=== PATIENT | male | born 1980 | race African-American/Black ===

== ENCOUNTER 2019-12-11 16:54 | Emergency (ER) | payer SELFPAY ==
[2019-12-11 17:14] VITALS: BP 206/149; PULSE 118; RESP 18; TEMP 36.4; O2SAT 98; BMI 32.8
--- NOTE | 2019-12-11 18:14 | PC.NURSE ---
Nurse attempted to call pt's name 3 different times to get pt back in a room. Pt was not seen in the waiting room.
== END 2019-12-11 18:15 | disposition left against medical advice (07) ==
PROVIDERS: Emergency Provider Emergency Medicine
DX: Z53.21 Procedure and treatment not carried out due to patient leaving prior to being seen by health care provider (principal)
CPT/HCPCS: 99281; 99282

== ENCOUNTER 2019-12-11 21:46 | Inpatient (IN) | payer SELFPAY ==
[2019-12-11 21:48] VITALS: BP 212/160; PULSE 114; RESP 24; TEMP 36.3; O2SAT 98; BMI 32.8
--- NOTE | 2019-12-11 22:07 | ED_ITS ---
Entered by Bianca Trejo, acting as scribe for Olivier Rosenberg DO Dec 11, 2019 21:46 HPI - Abdominal Pain General: Chief Complaint: Abdominal Pain Stated Complaint: hernia/pain Time Seen by Provider: 12/11/19 22:04 Source: patient Mode of arrival: ambulatory Limitations: no limitations History of Present Illness: HPI narrative: 39 yo m came to the er pov for abd pain and right scrotal pain. Pt states that he has had a fever and pain in the lower abd. Super pubic area is tender. MD elicited complaint: abdominal pain Pain Consistency: constant Associated Symptoms: Reports chills, fever(s) and nausea; Denies dysuria, hematochezia, hematuria, melena and vomiting Review of Systems Const: Reports: fever and chills Eyes: Denies: change in vision or blurry vision ENMT: Denies: painful swallowing or swelling of lips/tongue Card: Denies: chest pain, palpitations, irregular heart rhythm, edema, swelling of feet/ankles, shortness of breath on exertion or shortness of breath when lying down Resp: Denies: shortness of breath, productive cough, non-productive cough or wheezing GI: Reports: abdominal pain and nausea; Denies: vomiting, rectal pain, blood in stool or black tarry stool : Reports: difficulty urinating; Denies: painful urination, urinary frequency, urinary urgency or blood in urine Skin/Breast: Denies: rash, itching or redness Neuro: Reports: headache and confusion; Denies: dizziness or vertigo Psych: Denies: anxiety, visual hallucinations or auditory hallucinations PFSH ED PFSH: Statuses (acute, chronic, etc) shown below reflect problem list status as previously entered and may not be historically accurate Social History Smoking and tobacco status: current every day smoker Physical Exam Const: GENERAL APPEARANCE: well developed ORIENTATION/CONSCIOUSNESS: Yes oriented to person, Yes oriented to place and Yes oriented to time HENMT: COMMON NORMALS: normocephalic, external ears normal and external nose n ormal HEAD & SCALP: normocephalic; no scalp tenderness FACE & SINUS: normal facial exam NOSE: external nose normal and no nasal discharge EXTERNAL EAR: Yes external ears normal Eye: COMMON NORMALS: PERRL, EOMs intact bilaterally and conjunctivae normal EYELID: eyelids normal CONJUNCTIVA: Yes conjunctivae normal PUPIL: Yes PERRL Neck/C-Spine: COMMON NORMALS: full ROM GENERAL: No tracheal deviation CERVICAL SPINE: Yes normal cervical lordosis and No cervical spine tenderness Chest: COMMONS NORMALS: inspection of chest normal CHEST: No tenderness Resp: COMMON NORMALS: clear to auscultation bilaterally EFFORT & INSPECTION: No tachypneic, No respiratory distress, No retractions, No uses accessory muscles and No tracheal deviation AUSCULTATION: clear to auscultation bilaterally, no rhonchi, no wheezes and lung sounds not diminished Cardio: COMMON NORMALS: regular rate and regular rhythm RATE: regular rate RHYTHM: regular rhythm HEART SOUNDS: no murmurs PERIPHERAL PULSES: radia l pulses present GI: INSPECTION: No abdominal distension AUSCULTATION: No hyperactive bowel sounds and No hypoactive bowel sounds PALPATION: No guarding and No rigid PERCUSSION: no dullness to percussion and no tympanic to percussion : COMMON NORMALS: Yes no CVA tenderness BLADDER/KIDNEY EXAM: Yes no CVA tenderness PENIS: normal penis SCROTUM: Yes erythematous and Yes edematous (signficant, tender. ) Scrotal edema laterality: right Back/Pelvis: COMMON NORMALS: no CVA tenderness Neuro: SENSORIUM/ORIENTATION: Yes oriented to person, Yes oriented to place and Yes oriented to time Course ED course: 39-year-old male with 2 separate problems. The first is that of a swollen tender right testicle with a history of a fever. CT showed a hydrocele. Ultrasound of the testicle shows epididymitis. He will be treated for this. His second problem is that of significantly high blood pressure. His blood pressure was in the 260s systolic. This is despite hydralazine, Vasotec, and p.o. amlodipine. Because of this nitroglycerin paste was used. His blood pressure remained over 200 systolic. He is placed on a nitroglycerin drip. He has pulmonary edema on his CT is a finding of his significant afterload. He has an elevated troponin. He will be placed in the ICU on nitroglycerin drip, and is given Lasix here. Vital Signs: Vital signs: Vital Signs Temperature 97.3 F L 12/11/19 21:48 Pulse Rate 110 H 12/12/19 03:11 Respiratory Rate 16 12/12/19 03:11 Blood Pressure 184/121 12/12/19 03:11 Pulse Oximetry 97 12/12/19 03:11 MDM - Abdominal Pain Lab Data: Labs: Lab Results 12/11/19 12/11/19 12/12/19 Range/Units 22:55 22:55 01:56 WBC 8.2 (4.0-10.0) 10^3/ uL RBC 4.69 (4.1-5.3) 10^6/u L Hgb 13.0 (11.7-16.6) g/dL Hct 40.4 L (42.0-52.0) % MCV 86.1 (80-94) fL MCH 27.7 L (28.0-34.0) pg MCHC 32.2 (30.0-36.0) g/dL RDW 13.6 (12.1-15.1) % Plt Count 246 (130-400) 10^3/c mm MPV 9.5 (7.4-10.4) fL Neut % (Auto) 62.2 % Lymph % (Auto) 28.9 % Casey % (Auto) 4.9 % Eos % (Auto) 2.9 % Baso % (Auto) 0.9 % Neut # (Auto) 5.1 (1.8-7.7) 10^3/u L Lymph # (Auto) 2.4 (0.8-4.8) 10^3/u L Casey # (Auto) 0.4 (0.2-0.9) 10^3/u L Eos # (Auto) 0.2 (0.0-0.8) 10^3/u L Baso # (Auto) 0.1 (0.0-0.1) 10^3/u L Nucleated RBC % (a uto) 0 % Nucleated RBCs # 0.0 /100WBC Sodium 135 L (136-145) mmol/L Potassium 4.4 (3.5-5.1) mmol/L Chloride 100 (98-107) mmol/L Carbon Dioxide 25 (22-29) mmol/L Anion Gap 14.4 (5-19) BUN 23 H (6-20) mg/dL Creatinine 2.1 H (0.7-1.2) mg/dL GFR Calculation 42.8 L (90-130) mL/min Glucose 123 H (65-115) mg/dL Calcium 9.4 (8.5-10.5) mg/dL Total Bilirubin 0.4 (0.15-1.2) mg/dL AST 21 (0-40) U/L ALT 17 (0-41) U/L Alkaline Phosphata se 97 (40-130) IU/L Troponin T Baselin e 66 H (0-15) ng/mL NT-Pro-B Natriuret Pep (0-125) pg/mL Total Protein 6.7 (6.6-8.7) g/dL Albumin 3.5 (3.5-5.2) g/dL Globulin 3.2 (1.3-4.6) g/dL 12/12/19 Range/Units 01:56 WBC (4.0-10.0) 10^3/ uL RBC (4.1-5.3) 10^6/u L Hgb (11.7-16.6) g/dL Hct (42.0-52.0) % MCV (80-94) fL MCH (28.0-34.0) pg MCHC (30.0-36.0) g/dL RDW (12.1-15.1) % Plt Count (130-400) 10^3/c mm MPV (7.4-10.4) fL Neut % (Auto) % Lymph % (Auto) % Casey % (Auto) % Eos % (Auto) % Baso % (Auto) % Neut # (Auto) (1.8-7.7) 10^3/u L Lymph # (Auto) (0.8-4.8) 10^3/u L Casey # (Auto) (0.2-0.9) 10^3/u L Eos # (Auto) (0.0-0.8) 10^3/u L Baso # (Auto) (0.0-0.1) 10^3/u L Nucleated RBC % (a uto) % Nucleated RBCs # /100WBC Sodium (136-145) mmol/L Potassium (3.5-5.1) mmol/L Chloride (98-107) mmol/L Carbon Dioxide (22-29) mmol/L Anion Gap (5-19) BUN (6-20) mg/dL Creatinine (0.7-1.2) mg/dL GFR Calculation (90-130) mL/min Glucose (65-115) mg/dL Calcium (8.5-10.5) mg/dL Total Bilirubin (0.15-1.2) mg/dL AST (0-40) U/L ALT (0-41) U/L Alkaline Phosphata se (40-130) IU/L Troponin T Baselin e (0-15) ng/mL NT-Pro-B Natriuret Pep 2238 H (0-125) pg/mL Total Protein (6.6-8.7) g/dL Albumin (3.5-5.2) g/dL Globulin (1.3-4.6) g/dL Imaging Data ^: CT Abd/Pel: Radiologist's impression: [address] [address] [address] Scan Report Signed Patient: Bassem Woody #: [id number] : 1980Acct#:[id number] Age/Sex: 39 / MADM Date: 12/11/19 Loc: ERRoom/Bed: Attending Dr: Ordering Provider/Ordering MD: Olivier Rosenberg DO Date of Service: 12/11/19 Procedure(s): CT abdomen pelvis wo con [id number] Accession Number(s): [id number] Report Number: [id number] PROCEDURE INFORMATION: Exam: CT Abdomen And Pelvis Without Contrast Exam date and time: 12/11/2019 11:50 PM Age: 39 years old Clinical indication: Mass, lump, or swelling; Other: Testicules; Abdominal pain; Other: Rlq; Additional info: Rlq pain TECHNIQUE: Imaging protocol: Computed tomography of the abdomen and pelvis without contrast. Total DLP: 1876.45 mGy-cm Radiation optimization: All CT scans at this facility use at least one of these dose optimization techniques: automated exposure control; mA and/or kV adjustment per patient size (includes targeted exams where dose is matched to clinical indication); or iterative reconstruction. COMPARISON: CT Abdomen/Pelvis Renal [id number] 12/24/2016 6:43 PM FINDINGS: Lungs: There are some increased linear opacities present in the lower hemithoraces possibly secondary to mild pulmonary edema. Pleural space: There is a small right pleural effusion. Liver: Normal. No mass. Gallbladder and bile ducts: Normal. No calcified stones. No ductal dilation. Pancreas: Normal. No ductal dilation. Spleen: Normal. No splenomegaly. Adrenals: Normal. No mass. Kidneys and ureters: Normal. No hydronephrosis. Stomach and bowel: Unremarkable. No obstruction. No mucosal thickening. Appendix: The appendix is visualized and is normal in configuration. Intraperitoneal space: Unremarkable. No free air. No significant fluid collection. Vasculature: Unremarkable. No abdominal aortic aneurysm. Lymph nodes: Unremarkable. No enlarged lymph nodes. Bladder: Unremarkable as visualized. Reproductive: There is a right hydrocele present. Bones/joints: Unremarkable. No acute fracture. Soft tissues: Unremarkable. CT/CT abdomen pelvis wo con [id number] IMPRESSION: 1. There is a right pleural effusion he and bilateral basilar increased linear opacities, findings could be secondary to pulmonary edema. 2. There is a right hydrocele present. Radiation Dose CTDIVOL = (mGy): DLP = 1876.45 (mGy-cm) Dictated By:Jose Raul Dangelo MD Signed By:Jose Raul Dangelo MDSigned Date/Time:12/12/1919 DD/ 0019 Critical Care Time Critical Care Time: Total Critical Care Time: 40 Attestation: This case had a high probability of a clinically significant, sudden, or life threatening deterioration of this patient's condition which required my full and direct attention, intervention and personal management. Discharge Plan Discharge Admit Provider: Kade Shepherd Discharge Date/Time: 12/12/19 03:14 Coding Level of Care Code ED Business Office Technician for Chg Fwd The documentation recorded by the Neil moore Stephanie Lyn, accurately ref lects the service I personally performed and the decisions made by Chet dinero Jeremy John, DO Dec 11, 2019 21:46
--- NOTE | 2019-12-11 22:12 | PC.NURSE ---
PATIENT STATES HIS ABDOMEN STARTED HURTING A WEEK AGO, BUT IT GOT WORSE TODAY. PATIENT STATES THE PAIN IN LOCATED ON THE LOWER RIGHT QUADRANT.PATIENT STATES THE LRQ IS TENDER TO THE TOUCH.
[2019-12-11 22:19] VITALS: BP 244/174; PULSE 117; RESP 18; O2SAT 99
--- NOTE | 2019-12-11 22:39 | CTR_ITS ---
PROCEDURE INFORMATION: Exam: CT Abdomen And Pelvis Without Contrast Exam date and time: 12/11/2019 11:50 PM Age: 39 years old Clinical indication: Mass, lump, or swelling; Other: Testicules; Abdominal pain; Other: Rlq; Additional info: Rlq pain TECHNIQUE: Imaging protocol: Computed tomography of the abdomen and pelvis without contrast. Total DLP: 1876.45 mGy-cm Radiation optimization: All CT scans at this facility use at least one of these dose optimization techniques: automated exposure control; mA and/or kV adjustment per patient size (includes targeted exams where dose is matched to clinical indication); or iterative reconstruction. COMPARISON: CT Abdomen/Pelvis Renal [id number] 12/24/2016 6:43 PM FINDINGS: Lungs: There are some increased linear opacities present in the lower hemithoraces possibly secondary to mild pulmonary edema. Pleural space: There is a small right pleural effusion. Liver: Normal. No mass. Gallbladder and bile ducts: Normal. No calcified stones. No ductal dilation. Pancreas: Normal. No ductal dilation. Spleen: Normal. No splenomegaly. Adrenals: Normal. No mass. Kidneys and ureters: Normal. No hydronephrosis. Stomach and bowel: Unremarkable. No obstruction. No mucosal thickening. Appendix: The appendix is visualized and is normal in configuration. Intraperitoneal space: Unremarkable. No free air. No significant fluid collection. Vasculature: Unremarkable. No abdominal aortic aneurysm. Lymph nodes: Unremarkable. No enlarged lymph nodes. Bladder: Unremarkable as visualized. Reproductive: There is a right hydrocele present. Bones/joints: Unremarkable. No acute fracture. Soft tissues: Unremarkable. CT/CT abdomen pelvis wo con [id number] IMPRESSION: 1. There is a right pleural effusion he and bilateral basilar increased linear opacities, findings could be secondary to pulmonary edema. 2. There is a right hydrocele present. Radiation Dose CTDIVOL = (mGy): DLP = 1876.45 (mGy-cm)
[2019-12-11 22:57] VITALS: RESP 16; O2SAT 100
[2019-12-11] MEDS: HYDROmorphone 1 mg/mL INJ 1 mL IVP (22:57)
[2019-12-11] MEDS: hyDRALAzine 20 mg/mL INJ 1 mL IVP (22:58)
[2019-12-11 23:01] VITALS: BP 234/189; PULSE 114; RESP 17; O2SAT 100
[2019-12-11 23:04] LABS: Basophils # 0.1 10^3/uL (0.0-0.1); Basophils % 0.9 %; Eosinophils # 0.2 10^3/uL (0.0-0.8); Eosinophils % 2.9 %; Hematocrit 40.4 % (42.0-52.0); Lymphocytes # 2.4 10^3/uL (0.8-4.8); Lymphocytes % 28.9 %; Mean Corpuscular HGB Conc 32.2 g/dL (30.0-36.0); Mean Corpuscular Hemoglobin 27.7 pg (28.0-34.0); Mean Corpuscular Volume 86.1 fL (80-94); Mean Platelet Volume 9.5 fL (7.4-10.4); Monocytes # 0.4 10^3/uL (0.2-0.9); Monocytes % 4.9 %; Neutrophils # 5.1 10^3/uL (1.8-7.7); Neutrophils % 62.2 %; Nucleated Red Blood Cells % 0 %; Platelet Count 246 10^3/cmm (130-400); Red Blood Count 4.69 10^6/uL (4.1-5.3); Red Cell Distribution Width 13.6 % (12.1-15.1); White Blood Count 8.2 10^3/uL (4.0-10.0)
[2019-12-11] MEDS: amlodipine 10 mg Tablet PO (23:04)
[2019-12-11 23:20] LABS: Alanine Aminotransferase 17 U/L (0-41); Albumin Level 3.5 g/dL (3.5-5.2); Alkaline Phosphatase 97 IU/L (40-130); Anion Gap 14.4 (5-19); Aspartate Amino Transferase 21 U/L (0-40); Blood Urea Nitrogen 23 mg/dL (6-20); Calcium 9.4 mg/dL (8.5-10.5); Carbon Dioxide 25 mmol/L (22-29); Chloride 100 mmol/L (98-107); Globulin 3.2 g/dL (1.3-4.6); Glomerular Filtration Rate 42.8 mL/min (90-130); Glucose 123 mg/dL (65-115); Potassium 4.4 mmol/L (3.5-5.1); Sodium 135 mmol/L (136-145); Total Bilirubin 0.4 mg/dL (0.15-1.2); Total Protein 6.7 g/dL (6.6-8.7)
[2019-12-11] MEDS: enalaprilat 1.25 mg/mL Inj 2.5 MG IVP (23:59)
[2019-12-12] VITALS (58 sets, daily range): BP systolic 139–230; BP diastolic 101–190; PULSE 76–117; RESP 16–25; TEMP 36.6–36.7; O2SAT 88–100
[2019-12-12] MEDS: nitroglycerin 1 gm/inch oint Pkt 2 INCH TOPICAL
--- NOTE | 2019-12-12 01:17 | US_ITS ---
WS: [id number] [facility] ULTRASOUND HISTORY: 39 years old with pain swelling, left COMPARISON: CT pelvis 12/12/2019 TECHNIQUE: Grayscale and duplex color Doppler ultrasound examination of the scrotum. FINDINGS: Small right hydrocele is reidentified. Right epididymis appears enlarged and hyperemic. Left epididym is unremarkable. No left hydrocele. Both testicles size, contour, parenchyma echogenicity, duplex Doppler waveforms appear within normal limits. No varicocele or spermatocele. No intrascrotal hernia. Right testicle measures 3.2 x 3.1 x 5.0 cm and left testicle 2.7 x 3.5 x 4.0 cm. IMPRESSION: 1. Right epididymitis with small right hydrocele. 2. No evidence of orchitis, testicular torsion, or mass.
--- NOTE | 2019-12-12 01:37 | ECG_ITS ---
Measurements Intervals [place] Rate: 107 P: 65 NH: 143 QRS: 18 QRSD: 93 T: 208 QT: 348 QTc: 466 SINUS TACHYCARDIA POSSIBLE LEFT ATRIAL ENLARGEMENT [-0.1mV P WAVE IN V1/V2] ST DEVIATION AND MODERATE T-WAVE ABNORMALITY, CONSIDER LATERAL ISCHEMIA [-0.1+ mV T WAVE IN I/aVL/V5/V6] ST DEVIATION AND MODERATE T-WAVE ABNORMALITY, CONSIDER INFERIOR ISCHEMIA [-0.1 Compared to ECG 10/02/2019 08:23:47 T-wave abnormality now present Possible ischemia now present Left ventricular hypertrophy no longer present ST (T wave) deviation no longer present Electronically Signed On 12-13-2019 0:18:18 PRODUCT GRADER by Bell Wilder M.D. [email or web address]
--- NOTE | 2019-12-12 01:49 | PC.NURSE ---
ULTRASOUND IN ROOM
[2019-12-12 02:19] LABS: Troponin(5th) Baseline 66 ng/mL (0-15)
[2019-12-12] MEDS: levoFLOXacin 500 mg Tablet PO (02:19)
[2019-12-12] MEDS: FUROsemide 10 mg/mL SDV 10mL 80 MG IVP (02:20)
[2019-12-12] MEDS: nitroglycerin drip 50 MG/250 ML PREMIX IV (02:23)
[2019-12-12 02:28] LABS: NT Pro B Type Natriuretic Pept 2238 pg/mL (0-125)
[2019-12-12] MEDS: morphine 4 mg/mL SDV 1 mL IVP ×3 (03:04→17:02)
--- NOTE | 2019-12-12 03:19 | P.HP_ITS ---
Providers/Chief Complaint Admitting Physician: Kade Shepherd MD Chief Complaint: hernia/pain History of Present Illness Nicholas Woody is a 39 year old male with a past medical history of hypertension and any medications due to no insurance who presents to the emergency room due to complaints of right testicular pain. Patient states that he lives in [place], has a fianc?, works in a [employer], unfortunately does not have health insurance, has multiple ER visits for hypertension and shortness of breath, is sent home with about a month supply of antihypertensive medications, but patient does not have insurance, thus cannot see a physician, has not followed up with any of the free clinics here in [place], thus has been without his 2 blood pressure medications for some time. Of note patient does not know which these blood pressure medications are, thinks 1 of them is lisinopril. Patient states that for the past week he has had right testicular swelling and pain. Patient initially thought he might of had a hernia, try to ice it down, however the testicular pain persisted. In addition patient complains of dysuria, no hematuria, no increased urinary frequency, no urgency, no testicular discharge, no penile lesions, he sexually active with his fianc?e, has a history of gonorrhea chlamydia in the past, no history of UTIs, no history of nephrolithiasis, no history of testicular torsion. No recent falls, no recent injuries, no recent trauma. No history of hernias in the past. Patient admits to drinking moonshine this morning, to null his pain Patient has also been complaining of shortness of breath for the past few months, shortness of breath with exertion, has two-pillow orthopnea, paroxysmal nocturnal dyspnea, no chest chest pain, does have a headache, no blurry vision, no numbness and tingling in his fingers, no facial droop, no paralysis, no lightheaded, no dizziness In the emergency room patient had a work-up positive for epididymitis In the emergency room patient was found to have a blood pressure as high as 234/189, patient denies chest pain, palpitations, has shortness of breath, has headaches, dysuria. Patient was admitted to the intensive care unit for hypertensive emergency. Review of Systems Const: Denies: fever, chills, fatigue or malaise Eyes: Denies: change in vision or blurry vision ENMT: Denies: nasal congestion Card: Reports: shortness of breath on exertion and shortness of breath when lying down; Denies: chest pain, palpitations, irregular heart rhythm, lightheadedness or s yncope Resp: Reports: shortness of breath; Denies: productive cough, non-productive cough or wheezing GI: Denies: abdominal pain, nausea, vomiting, vomiting blood, diarrhea, constipation, blood in stool or black tarry stool : Denies: flank pain, difficulty urinating, painful urination or urinary frequency Musc: Denies: neck pain or back pain Skin/Breast: Denies: rash Neuro: Denies: headache, numbness in extremities, weakness in extremities, dizziness or vertigo Psych: Denies: anxiety or depression Endo: Denies: excessive urination or excessive thirst Medications/Allergies Home Medications Medication Instructions Recorded Confirmed Last Taken Type lisinopril 20 mg PO DAILY 12/12/19 12/12/19 12/08/19 History Allergies Allergy/AdvReac Type Severity Reaction Status Date / Time No Known Allergies Allergy Verified 12/12/19 03:33 Additional Medication Information Additional Medication Information: Patient thinks he is taking lisinopril Is unsure of the other medication he takes PFSH Acute PFSH: Statuses (acute, chronic, etc) shown below reflect problem list status as previously entered and may not be historically accurate Medical History (Updated 12/12/19 @ 03:36 by Kade Shepherd MD) CKD (chronic kidney disease) (Acute) Hypertension (Acute) Family History (Updated 12/12/19 @ 03:32 by Kade Shepherd MD) Other CAD (coronary artery disease) Diabetes Hypertension Social History (Updated 12/12/19 @ 03:33 by Kade Shepherd MD) Smoking and tobacco status: current every day smoker Alcohol intake: current Alcohol intake frequency: holidays/special occasions only Substance/Drug Use: current Substance/Drug use type: Marijuana Vitals/I&O/Wt Last Vital Signs Temp 97.3 F L 12/11/19 21:48 Pulse 110 H 12/12/19 03:11 Resp 16 12/12/19 03:11 BP 184/121 12/12/19 03:11 Pulse Ox 97 12/12/19 03:11 12/11/19 12/11/19 12/12/19 14:59 22:59 06:59 Intake Total 2.6 / 2.6 Balance 2.6 / 2.6 Weight last 48 hrs Weight 122.47 kg Physical Exam Const: COMMON NORMALS: no apparent distress and oriented x3 GENERAL APPEARANCE: cooperative and comfortable HENMT: COMMON NORMALS: normocephalic HEAD & SCALP: normocephalic Eye: COMMON NORMALS: PERRL, EOMs intact bilaterally and no papilledema GENERAL EYE: normal appearance of both eyes PUPIL: Yes PERRL DIRECT OPHTHALMOSCOPY: Yes no papilledema Neck/C-Spine: COMMON NORMALS: full ROM, no lymphadenopathy, no JVD and thyroid normal THYROID: thyroid normal Lymph: LYMPHATIC: no lymphadenopathy noted Resp: COMMON NORMALS: normal respiratory effort, no retractions, no use of accessory muscles and clear to auscultation bilaterally AUSCULTATION: clear to auscultation bilaterally Cardio: COMMON NORMALS: no JVD, regular rate, regular rhythm, S1 normal heart sound, S2 normal heart sound, no gallops, no clicks and no murmurs RATE: regular rate RHYTHM: regular rhythm HEART SOUNDS: S1 normal and S2 normal GI: COMMON NORMALS: normal to inspection, nondistended, normoactive bowel sounds, soft to palpation, non-tender and no hepatosplenomegaly PALPATION: Yes soft and Yes no hepatosplenomegaly : OTHER: Right testicular swelling, hydrocele, right testicular and epididymal tenderness Extremity: COMMON NORMALS: normal to inspection, full ROM and no pedal edema Neuro: COMMON NORMALS: oriented x3, CN's II-XII intact bilaterally, moves all extremities and no focal motor deficits Psych: COMMON NORMALS: mental status grossly normal, thought process normal and cooperative THOUGHT PROCESS: normal thought process Data : 12/11/19 22:55 12/11/19 22:55 A&P Assessment and plan (1) Hypertensive emergency: -Patient likely lives in high hypertensive urgency, is not taking his lisinopril, has not seen a physician due to insurance issues -Has evidence of endorgan damage given pulmonary edema, elevated BNP, LVH, CKD Plan: -We will admit to the ICU, on a nitro drip -Goal is to reduce blood pressure less than 180/120 for the first hour -Then less than 160/110 for the next 23 hours, avoid aggressive blood pressure reduction -We will leave adding oral medications to the morning team when deemed prudent -We will do CT of the head to rule out intracranial hemorrhage Status: Acute Code(s): I16.1 - Hypertensive emergency (2) Epididymitis: -Patient has evidence of epididymoorchitis -Ultrasound of the scrotum was negative for testicular torsion -So far urinalysis is pending -Gonorrhea chlamydia panel has been ordered -Given history of gonorrhea in the recent past, will give 1 dose of ceftriaxone plus doxycycline for the next 10 days to cover for gonorrhea and chlamydia. To cover for enteric pathogens will continue Levaquin 500 oral for 10 days Status: Acute Code(s): N45.1 - Epididymitis (3) Hydrocele: Right hydrocele seen on ultrasound Status: Acute Code(s): N43.3 - Hydrocele, unspecified (4) LVH (left ventricular hypertrophy): Seen on EKG Status: Acute Code(s): I51.7 - Cardiomegaly (5) Hypertension: We will discuss with case management about setting up a primary care physician as outpatient Secondary work-up for hypertension is pending, which includes aldosterone, renal sonogram with blood flow, echocardiogram I cannot find renin levels order will have morning team contact the lab Urine drug screen pending Status: Acute Code(s): I10 - Essential (primary) hypertension (6) Shortness of breath: -Patient BNP is 2238, CT shows pulmonary edema, patient symptomatically short of breath -Symptoms are likely related to chronically elevated high blood pressure as outpatient, and once blood pressures are running well controlled patient's symptoms should resolve -We will do a cardiac echocardiogram -Received 1 dose of Lasix, daily dose Lasix based on response Status: Acute Code(s): R06.02 - Shortness of breath (7) History of methamphetamine use: Denies current use Status: Acute Code(s): Z87.898 - Personal history of other specified conditions (8) CKD (chronic kidney disease): -Creatinine is 2.1 -Has evidence of endorgan damage related to hypertension -We will do a renal ultrasound with blood flow to evaluate for renal artery stenosis Status: Acute Code(s): N18.9 - Chronic kidney disease, unspecified (9) NSTEMI (non-ST elevated myocardial infarction): -Patient's EKG shows LVH, T wave inversions 1, lead II, aVF, V4 to V6 -Patient's baseline troponin is 66 -Denies chest pain -Elevated troponin likely type II NSTEMI Plan: -Blood pressure control, telemetry monitoring -Monitor for chest pain -Serial EKGs, troponins Status: Acute Code(s): I21.4 - Non-ST elevation (NSTEMI) myocardial infarction Attestations Medical Necessity Statement*: Patient requires inpatient mission, greater than 2 midnights, for hypertensive emergency, epididymoorchitis Coding Level of Care Code 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
--- NOTE | 2019-12-12 03:26 | USCV_ITS ---
Nicholas Woody Age: 39 Gender: M : 1980 Exam Date: 12/12/2019 09:25 Ordering Phys: Kade Shepherd MD Technologist: Jose Dubose [place]am [place] [facility] [place]ication: SOB HX OF DRUG ABUSE BP: 167 / 117 HR: 96 Rhythm: Sinus Technical Quality: Fair MEASUREMENTS (Male / Female) Normal Values 2D ECHO LVOT Diameter 2.0 cm LV Ejection Fraction MOD 2C 41.6 % LV Ejection Fraction 2C AL 39.6 % LA Diameter 3.5 cm LA Width 5.0 cm LA Height 4.6 cm RA Width 4.4 cm RA Height 4.9 cm Aorta at Sinotubular Diameter 3.6 cm M-MODE LV Diastolic Diameter MM 6.0 cm 4.2 - 5.9 / 3.9 - 5.3 cm LV Systolic Diameter MM 4.4 cm LV Ejection Fraction MM Teich 50.6 % IVS Diastolic Thickness MM 0.9 cm 0.6 - 1.0 / 0.6 - 0.9 cm IVS Systolic Thickness MM 1.6 cm LVPW Diastolic Thickness MM 1.4 cm 0.6 - 1.0 / 0.6 - 0.9 cm LVPW Systolic Thickness MM 1.9 cm RV Diastolic Diameter MM 2.3 cm Aortic Annulus Diameter 3.8 cm LA Ao Ratio MM 0.9 MV E Point Septal Separation 1.7 cm DOPPLER AV Peak Velocity 134.0 cm/s LVOT Peak Velocity 72.0 cm/s AV Area Cont Eq vti 1.4 cm squared AV Area Cont Eq pk 1.7 cm squared MV Area PHT 5.0 cm squared Mitral E to A Ratio 1.2 MV E' Velocity 7.0 cm/s Mitral E to MV E' Ratio 9.6 Mitral E to LV E' Lateral Ratio 7.9 Mitral E to LV E' Septal Ratio 12.3 TR Peak Velocity 166.0 cm/s TR Peak Gradient 11.0 mmHg TV Peak E Velocity 103.0 cm/s Right Atrial Pressure 3.0 mmHg Pulmonary Artery Systolic Pressu 14.0 mmHg PV Peak Velocity 104.0 cm/s FINDINGS Left Ventricle Normal left ventricular cavity size. Mildly reduced left ventricular systolic function with global wall motion abnormalities. Left ventricular ejection fraction is estimated at 50 %. Normal diastolic function. Right Ventricle The right ventricle is normal in size and function. Right Atrium The right atrium is normal in size. Left Atrium The left atrium is normal in size. Mitral Valve Mildly thickened mitral valve. No mitral valve stenosis. Trace mitral valve regurgitation. Aortic Valve Structurally normal aortic valve without significant sclerosis or stenosis. There is no aortic regurgitation. Tricuspid Valve Structurally normal tricuspid valve without significant stenosis or regurgitation. Pulmonary artery systolic pressure is normal. Pulmonic Valve Structurally normal pulmonic valve without significant stenosis. There is no pulmonic regurgitation. Pericardium Normal pericardium without effusion. Aorta Normal ascending aorta dimension. CONCLUSIONS 1-Normal left ventricular cavity size. Mildly reduced left ventricular systolic function with global wall motion abnormalities. Left ventricular ejection fraction is estimated at 50 %. Normal diastolic function. 2-Mildly thickened mitral valve. No mitral valve stenosis. Trace mitral valve regurgitation. 3-No significant valve abnormalities. 4-There is no pericardial effusion. 5-Pulmonary artery systolic pressure is within normal limits. 6-Right atrial pressure is around 5 mm of mercury. 7-There are no prior echocardiogram studies to compare. Bell Wilder MD (Electronically Signed) Final Date: 13 December 2019 00:04 S
--- NOTE | 2019-12-12 03:26 | US_ITS ---
WS: [id number] RENAL ULTRASOUND HISTORY: 39 years old Male with ckd COMPARISON: None available. TECHNIQUE: Grayscale and Doppler ultrasound examination of the kidneys. FINDINGS: Right kidney: Right kidney measures 11.3 cm x 5.8 cm x 4.6 cm. Echogenic renal parenchyma. No appreci able renal atrophy. No solid or cystic mass. No shadowing calculus or hydronephrosis. No perinephric fluid collection. Left kidney: Left kidney measures 10.0 cm x 5.0 cm x 6.0 cm. Echogenic renal parenchyma. No appreciab le renal atrophy. No solid or cystic mass. No shadowing calculus or hydronephrosis. No perinephric fl uid collection. US/US renal BI* [id number] IMPRESSION: Bilateral echogenic renal parenchyma suggestive of chronic medical renal diseas e. No evidence of hydronephrosis or mass.
--- NOTE | 2019-12-12 03:27 | CTR_ITS ---
PROCEDURE INFORMATION: Exam: CT Head Without Contrast Exam date and time: 12/12/2019 3:21 PM Age: 39 years old Clinical indication: Other: Headache high blood pressure; Additional info: HTN emergency R/O ich TECHNIQUE: Imaging protocol: Computed tomography of the head without contrast. Total DLP: 882.27 mGy-cm Radiation optimization: All CT scans at this facility use at least one of these dose optimization techniques: automated exposure control; mA and/or kV adjustment per patient size (includes targeted exams where dose is matched to clinical indication); or iterative reconstruction. COMPARISON: No relevant prior studies available. FINDINGS: Brain: Normal. No hemorrhage. Unremarkable white matter. No mass effect. Ventricles: Normal. No ventriculomegaly. Bones/joints: Unremarkable. No acute fracture. Sinuses: There is mucosal thickening in the maxillary and sphenoid sinuses. Mastoid air cells: Visualized mastoid air cells are well aerated. Soft tissues: Unremarkable. CT/CT head wo con* [id number] IMPRESSION: No acute intracranial findings. Radiation Dose CTDIVOL = (mGy): DLP = 882.27 (mGy-cm)
[2019-12-12 04:24] LABS: Alanine Aminotransferase 22 U/L (0-41); Alkaline Phosphatase 109 IU/L (40-130); Anion Gap 16.5 (5-19); Aspartate Amino Transferase 26 U/L (0-40); Blood Urea Nitrogen 24 mg/dL (6-20); Calcium 9.6 mg/dL (8.5-10.5); Carbon Dioxide 26 mmol/L (22-29); Chloride 99 mmol/L (98-107); Globulin 3.6 g/dL (1.3-4.6); Glomerular Filtration Rate 36.6 mL/min (90-130); Glucose 165 mg/dL (65-115); Magnesium 2.3 mg/dL (1.7-2.3); Phosphorus 3.5 mg/dL (2.5-4.5); Potassium 3.5 mmol/L (3.5-5.1); Sodium 138 mmol/L (136-145); Total Bilirubin 0.5 mg/dL (0.15-1.2); Total Protein 7.6 g/dL (6.6-8.7)
[2019-12-12 04:30] LABS: Estmated Average Glucose 128; Hemoglobin A1C 6.1 % (4.0-6.0)
[2019-12-12 04:37] LABS: Chol HDL Ratio 4.05 mg/dL (1.0-5.00); Cholesterol 150 mg/dL (0-200); HDL Cholesterol 37 mg/dL (60-100); LDL Cholesterol Calculated 84 mg/dL (50-129); LDL HDL Ratio 2.27 RATIO (0.00-3.22); Thyroid Stimulating Hormone 5.11 uIU/mL (0.27-4.20); Triglycerides 146 mg/dL (0-150)
[2019-12-12 04:38] LABS: Alcohol Level < 10 mg/dL (0-10)
[2019-12-12 04:45] LABS: Add Urine Microscopic? NO
[2019-12-12 04:51] LABS: Bilirubin Urine Neg (NEGATIVE); Blood Urine Neg (Negative); Glucose Urine UA Norm (Normal); Ketones Urine Negative (Negative); Leukocyte Esterase Urine Negative (Negative); Nitrate Urine Negative (Negative); Protein Urine Neg (Negative); Urine Appearance Clear (CLEAR); Urine Color Straw (Yellow); Urobilinogen Urine Norm (Negative); pH Urine 7 (5-7)
[2019-12-12] MEDS: cefTRIAXone 250 mg SDV IM (05:04)
[2019-12-12 05:06] LABS: Barbiturates Screen Urine Negative (Negative); Benzodiazepines Screen Urine Negative (Negative); Cocaine Screen Urine Negative (Negative); Opiate Screen Urine Negative (Negative); PCP Screen Urine Negative (Negative); THC Screen Urine Negative (Negative)
[2019-12-12 05:07] LABS: Creatinine Urine, Random 15 mg/dL (39-259); Microalbumin Random Urine 5 ug/dL (0-20)
[2019-12-12 05:10] LABS: Microalbum Creatinine Ratio Ur 333 mg/dL (0-20)
[2019-12-12 05:25] LABS: Amphetamines Screen Urine Positive (Negative)
[2019-12-12] MEDS: sodium chloride 0.9% 1,000 ML 100 ML IV ×2 (06:44→17:02)
[2019-12-12] MEDS: doxycycline 100 mg Tablet PO ×2 (09:02→17:03)
[2019-12-12] MEDS: acetaminophen 325 mg Tablet 650 MG PO (09:02)
--- NOTE | 2019-12-12 10:22 | P.PN_ITS ---
Subjective Subjective: Interval history: Chart reviewed, BP remains high. Mother at bedside during my assessment this morning. Complains of a headache though blood pressure as mentioned already is quite high. Nitroglycerin drip running at 25 mcg/hr. Has had a good appetite throughout the day. Medications: Reviewed: Yes Medication Review Details: Current Medications Generic Name Dose Route Start Last Admin Trade Name Freq PRN Reason Stop Dose Admin Acetaminophen 650 mg 12/12/19 03:26 12/12/19 09:02 Tylenol PO 650 mg Q6H PRN Administration Mild/Mod Pain Or Temp >/= 101 Doxycycline Monohy drate 100 mg 12/12/19 09:00 12/12/19 09:02 Vibramycin PO 100 mg BID MAKENZIE Administration Protocol Sodium Chloride 1,000 mls @ 50 ml s/hr 12/12/19 06:45 12/12/19 06:44 Sodium Chloride 0.9% IV 100 mls/hr .Q20H MAKENZIE Administration Vitals/I&O/Wt Last Vital Signs Temp 98.1 F 12/12/19 06:00 Pulse 105 H 12/12/19 09:00 Resp 16 12/12/19 03:11 BP 159/112 12/12/19 09:00 Pulse Ox 98 12/12/19 09:00 12/11/19 12/12/19 12/12/19 22:59 06:59 14:59 Intake Total 47.00 / 47.00 Output Total 1100 / 1100 320 / 320 Balance -1053.00 / -1053.00 -320 / -320 Weight last 48 hrs Weight 121.109 kg Weight 122.47 kg Physical Exam Const: COMMON NORMALS: no apparent distress and oriented x3 GENERAL APPEARANCE: cooperative and comfortable ORIENTATION/CONSCIOUSNESS: Yes awake HENMT: COMMON NORMALS: normocephalic, head/scalp atraumatic, hearing grossly normal bilaterally and moist oral mucous membranes HEAD & SCALP: normo cephalic and atraumatic Eye: COMMON NORMALS: PERRL, EOMs intact bilaterally and conjunctivae normal CONJUNCTIVA: Yes conjunctivae normal PUPIL: Yes PERRL Neck/C-Spine: COMMON NORMALS: full ROM GENERAL: Yes normal visual inspection and Yes trachea midline Resp: COMMON NORMALS: normal respiratory effort, no retractions, no use of accessory muscles and clear to auscultation bilaterally EFFORT & INSPECTION: Yes able to speak in complete sentences, Yes symmetric chest movement and No tachypneic AUSCULTATION: clear to auscultation bilaterally Cardio: COMMON NORMALS: regular rate, regular rhythm, S1 normal heart sound, S2 normal heart sound and no murmurs RATE: regular rate RHYTHM: regular rhythm HEART SOUNDS: S1 normal and S2 normal GI: COMMON NORMALS: normal to inspection, nondistended, normoactive bowel sounds, soft to palpation and non-tender PALPATION: Yes soft Extremity: COMMON NORMALS: normal to inspection, full ROM and no clubbing, cyanosis or edema; negative for no pedal edema Neuro: COMMON NORMALS: oriented x3, moves all extremities, no focal motor deficits, no sensory deficits noted and gait normal Psych: COMMON NORMALS: mental status grossly normal, thought process normal, cooperative, affect normal and speech normal SPEECH: Yes normal speech THOUGHT PROCESS: normal thought process Skin: COMMON NORMALS: no rashes or lesions noted, no jaundice, no petechiae and no mottling GENERAL SKIN EXAM: no rashes or lesions noted Data : 12/11/19 22:55 12/12/19 03:53 A&P Assessment and plan (1) Hypertensive emergency: -significantly elevated BP, remains high -on NTG drip; has remained hypertensive throughout the day. May need to consider nicardipine drip if continued elevated blood pressure -resume BB, add amlodipine, hydralazine, clonidine -noted evidence of end-organ damage, including elevated troponin, renal impairment, pulmonary edema -CT head: Unremarkable -close monitoring of BP -renal US showing evidence of chronic kidney disease bilaterally -f/u echo -received 80 mg of IV Lasix in ED -[id number] Status: Acute Code(s): I16.1 - Hypertensive emergency (2) Epididymitis: -R epididymitis with R hydrocele on imaging -hx of STI; NG, CT screening negative; requested trichomonas testing -received dose of Ceftriaxone, continue Doxycycline x 10 days; d/c Levaquin as likely STI related -pain control as needed Status: Acute Code(s): N45.1 - Epididymitis (3) History of methamphetamine use: -UDS positive for methamphetamines; denies use; previously positive -could be contributing to hypertensive emergency Status: Acute Code(s): Z87.898 - Personal history of other specified conditions (4) CKD (chronic kidney disease): -CKD stage 2-3; baseline Cr around 2 -noted elevated microalbumin/Cr ratio -monitor urine output -avoid nephrotoxins, renally dose meds -renal US showing evidence of chronic kidney disease bilaterally Status: Acute Qualifiers: Chronic kidney disease stage: stage 3 (moderate) Qualified Code(s): N18.3 - Chronic kidney disease, stage 3 (moderate) Code(s): N18.9 - Chronic kidney disease, unspecified Additional A&P Information -Obesity: BMI-33 kg/m2 -HTN -Pre-DM; A1c-6.1 -cardiac diet as tolerated -DVT ppx with Lovenox -Dispo: home -Code status: FULL code Attestations Medical Necessity Statement*: Patient requires hospitalization for continued management of hypertensive emergency, epididymitis. Time Spent in Patient Care: Greater than 35 minutes (>than 50% of time spent in counselling and/or direct pt care on unit) . Coding Level of Care Code Acute Pooling Operator for Matthewg Fwd Exam Problem Focused Diagnoses Hypertensive emergency I16.1 Epididymitis N45.1 History of methamphetamine use Z87.898 CKD (chronic kidney disease) N18.3 Chronic kidney disease stage: stage 3 (moderate)
[2019-12-12] MEDS: amlodipine 10 mg Tablet PO (10:48)
[2019-12-12] MEDS: morphine 4 mg/mL SDV 1 mL 2 MG IVP (10:48)
[2019-12-12] MEDS: ondansetron 2 mg/ML SDV 2 mL 4 MG IVP (10:59)
--- NOTE | 2019-12-12 11:19 | PC.CHAP ---
Pastoral Care Encounter/Spiritual Assessment Type of Contact [x] Declined bench jeweler visit [] Patient/Family/Request visit [] Outpatient visit [] Follow-up visit [] Physician referral [] Code/Alert [] Routine visit [] Staff referral [] Actively dying [] Patient sleeping [] Family support [] [] Out of room [] Palliative care [] [] Receiving care in room [] Pre-surgical visit [] Trauma [] Long length of stay [] ICU visit [] Other: Relational/Emotional Strength [] Patient feels connected with others/family/visitors/staff [] Distress [] Loneliness/isolation [] Abandonment Spirituality of Patient [] Person of Trista [] Attends Mormon of their Trista [] Believes in Prayer [] Reads Bible or Pentecostalism materials [] There are Spiritual issues to be addressed Product Engineer Interventions [] Prayer [] Active listening [] Non-anxious presence [] Spiritual/emotional support [] Crisis/trauma care [] Spiritual counseling [] Bereavement support [] Provided bereavement packet [] Provided Bible/devotional materials [] Provided toy/stuffed animal, coloring book to patient or family member [] Provided Communion [] Anointing/[place] [] Salvation [] Completed spiritual assessment [] Other: Impact on Illness or Injury [] Angry [] Fearful [] Anxious [] Often cries [] Exhaustion [] Unable to work [] Unable to attend islam [] Unable to walk/stand [] Unable to read [] Unable to drive [] Unable to eat/drink [] Unable to sleep [] Unable to be with family [] Patient intubated [] Other: Summary Patient said he had a bad headache and couldn't talk. Follow up Time spent with patient
[2019-12-12] MEDS: metoprolol tartrate 25 mg Tablet PO (17:03)
[2019-12-12] MEDS: cloNIDine 0.1 mg Tablet PO (18:17)
[2019-12-12] MEDS: hyDRALAzine 25 mg Tablet PO (20:06)
[2019-12-12] MEDS: nitroglycerin drip 50 MG/250 ML PREMIX 15 MG IV (21:14)
--- NOTE | 2019-12-12 21:21 | PC.NURSE ---
Ntg gtt 50 mcg/min. remains hypertensive 201/137. C/o headache Dr Shepherd aware will switch to cardene and wean Ntg to see if headache resolves and bp improves
[2019-12-12] MEDS: hyDRALAzine 25 mg Tablet 50 MG PO (22:37)
[2019-12-12] MEDS: isosorbide mononitrate ER 30 mg Tablet PO (22:37)
[2019-12-13] VITALS (31 sets, daily range): BP systolic 131–230; BP diastolic 82–157; PULSE 86–113; RESP 14–22; TEMP 36.8–37.1; O2SAT 90–99
[2019-12-13] MEDS: acetaminophen 325 mg Tablet 650 MG PO ×3 (03:42→22:09)
[2019-12-13] MEDS: sodium chloride 0.9% 1,000 ML 50 ML IV ×2 (03:43→23:45)
[2019-12-13 04:24] LABS: Basophils # 0.1 10^3/uL (0.0-0.1); Basophils % 0.5 %; Eosinophils # 0.2 10^3/uL (0.0-0.8); Eosinophils % 1.8 %; Hematocrit 39.9 % (42.0-52.0); Hemoglobin 12.8 g/dL (11.7-16.6); Lymphocytes # 1.7 10^3/uL (0.8-4.8); Lymphocytes % 15.6 %; Mean Corpuscular HGB Conc 32.1 g/dL (30.0-36.0); Mean Corpuscular Hemoglobin 26.7 pg (28.0-34.0); Mean Corpuscular Volume 83.1 fL (80-94); Mean Platelet Volume 9.9 fL (7.4-10.4); Monocytes # 0.8 10^3/uL (0.2-0.9); Monocytes % 7.6 %; Neutrophils # 8.1 10^3/uL (1.8-7.7); Neutrophils % 74.1 %; Nucleated Red Blood Cells % 0 %; Platelet Count 298 10^3/cmm (130-400); Red Cell Distribution Width 13.2 % (12.1-15.1)
[2019-12-13 04:38] LABS: Alanine Aminotransferase 17 U/L (0-41); Albumin Level 3.7 g/dL (3.5-5.2); Alkaline Phosphatase 98 IU/L (40-130); Anion Gap 18.1 (5-19); Aspartate Amino Transferase 20 U/L (0-40); Carbon Dioxide 24 mmol/L (22-29); Chloride 98 mmol/L (98-107); Globulin 3.1 g/dL (1.3-4.6); Glomerular Filtration Rate 42.8 mL/min (90-130); Glucose 134 mg/dL (65-115); Phosphorus 3.4 mg/dL (2.5-4.5); Potassium 4.1 mmol/L (3.5-5.1); Sodium 136 mmol/L (136-145); Total Bilirubin 0.7 mg/dL (0.15-1.2); Total Protein 6.8 g/dL (6.6-8.7)
[2019-12-13 04:59] LABS: Blood Urea Nitrogen 18 mg/dL (6-20); Calcium 9.4 mg/dL (8.5-10.5); Magnesium 1.8 mg/dL (1.7-2.3)
[2019-12-13] MEDS: metoprolol tartrate 25 mg Tablet 50 MG PO (09:32)
[2019-12-13] MEDS: amlodipine 10 mg Tablet PO (09:32)
[2019-12-13] MEDS: isosorbide mononitrate ER 30 mg Tablet PO (09:32)
[2019-12-13] MEDS: enoxaparin 40 mg/0.4 mL Syringe SUBCUT (09:33)
[2019-12-13] MEDS: doxycycline 100 mg Tablet PO ×2 (09:33→18:15)
[2019-12-13] MEDS: hyDRALAzine 25 mg Tablet 50 MG PO (09:33)
[2019-12-13] MEDS: cloNIDine 0.1 mg Tablet PO ×3 (09:33→21:06)
--- NOTE | 2019-12-13 10:46 | PM.PN ---
Subjective Subjective: Interval history: BP has significantly improved once switched to Nicardipine drip. Had good urine output overnight, 1850 mL. Patient seen and examined, resting in bed, continues to complain of headache though this has improved somewhat since yesterday. Also continues to be quite fatigued and generally feeling unwell. Working on trying to wean off nicardipine drip while maximizing oral antihypertensives. Medications: Reviewed: Yes Medication Review Details: Current Medications Generic Name Dose Route Start Last Admin Trade Name Freq PRN Reason Stop Dose Admin Acetaminophen 650 mg 12/12/19 03:26 12/13/19 03:42 Tylenol PO 650 mg Q6H PRN Administration Mild/Mod Pain Or Temp >/= 101 Amlodipine Besylat e 10 mg 12/12/19 10:30 12/13/19 09:32 Norvasc PO 10 mg DAILY MAKENZIE Administration Clonidine HCl 0.1 mg 12/12/19 18:00 12/13/19 09:33 Catapres PO 0.1 mg BID MAKENZIE Administration Doxycycline Monohy drate 100 mg 12/12/19 09:00 12/13/19 09:33 Vibramycin PO 100 mg BID MAKENZIE Administration Protocol Enoxaparin Sodium 40 mg 12/13/19 09:00 12/13/19 09:33 Lovenox SUBCUT 40 mg Q24H MAKENZIE Administration Hydralazine HCl 50 mg 12/12/19 22:00 12/13/19 09:33 Apresoline PO 50 mg TID MAKENZIE Administration Nitroglycerin/Dext adrienne 50 mg in 250 mls @ 0 mls/hr 12/12/19 04:00 12/13/19 01:[address] ip IV 0 mcg/min .Q0M MAKENZIE 0 mls/hr Titration Protocol Per Protocol Sodium Chloride 1,000 mls @ 50 ml s/hr 12/12/19 06:45 12/13/19 03:43 Sodium Chloride 0.9% IV 50 mls/hr .Q20H MAKENZIE Administration Nicardipine HCl 25 mg/ Sodium 250 mls @ 0 mls/h r 12/12/19 21:30 12/13/19 06:47 Chloride IV 3 mg/hr .Q0M MAKENZIE 30 mls/hr Titration Protocol Per Protocol Isosorbide Mononit rate 30 mg 12/12/19 21:50 02/09/20 09:32 Imdur PO 30 mg DAILY MAKENZIE Administration Metoprolol Tartrat e 50 mg 12/13/19 09:00 12/13/19 09:32 Lopressor PO 50 mg BID MAKENZIE Administration Morphine Sulfate 4 mg 12/12/19 03:26 12/12/19 17:02 Morphine IVP 4 mg Q2H PRN Administration SEVERE PAIN Morphine Sulfate 2 mg 12/12/19 03:26 12/12/19 10:48 Morphine IVP 2 mg Q4H PRN Administration SEVERE PAIN Ondansetron HCl 4 mg 12/12/19 03:26 12/12/19 10:59 Zofran IVP 4 mg Q6H PRN Administration NAUSEA AND VOMITI NG Vitals/I&O/Wt Last Vital Signs Temp 98.6 F 12/13/19 06:00 Pulse 111 H 12/13/19 09:30 Resp 19 H 12/13/19 09:30 BP 151/99 12/13/19 09:30 Pulse Ox 98 12/13/19 09:30 12/12/19 12/13/19 12/13/19 22:59 06:59 14:59 Intake Total 1536.667 / 9554.745 5868.100 / 4096.767 360 / 360 Output Total 750 / 1890 1600 / 3490 500 / 500 Balance 786.667 / -353.333 960.100 / 606.767 -140 / -140 Weight last 48 hrs Weight 124.466 kg Weight 121.109 kg Weight 122.47 kg Physical Exam Const: COMMON NORMALS: no apparent distress and oriented x3 GENERAL APPEARANCE: cooperative and comfortable ORIENTATION/CONSCIOUSNESS: Yes awake HENMT: COMMON NORMALS: normocephalic, head/scalp atraumatic, hearing grossly normal bilaterally and moist oral mucous membranes HEAD & SCALP: normocephalic and atraumatic Eye: COMMON NORMALS: PERRL, EOMs intact bilaterally and conjunctivae normal CONJUNCTIVA: Yes conjunctivae normal PUPIL: Yes PERRL Neck/C-Spine: COMMON NORMALS: full ROM GENERAL: Yes normal visual inspection and Yes trachea midline Resp: COMMON NORMALS: normal respiratory effort, no retractions, no use of accessory muscles and clear to auscultation bilaterally EFFORT & INSPECTION: Yes able to speak in complete sentences, Yes symmetric chest movement and No tachypneic AUSCULTATION: clear to auscultation bilaterally Cardio: COMMON NORMALS: regular rate, regular rhythm, S1 normal heart sound, S2 normal heart sound and no murmurs RATE: regular rate RHYTHM: regular rhythm HEART SOUNDS: S1 normal and S2 normal GI: COMMON NORMALS: normal to inspection, nondistended, normoactive bowel sounds, soft to palpation and non-tender PALPATION: Yes soft Extremity: COMMON NORMALS: normal to inspection, full ROM and no clubbing, cyanosis or edema; negative for no pedal edema Neuro: COMMON NORMALS: oriented x3, moves all extremities, no focal motor deficits, no sensory deficits noted and gait normal Psych: COMMON NORMALS: mental status grossly normal, thought process normal, cooperative, affect normal and speech normal SPEECH: Yes normal speech THOUGHT PROCESS: normal thought process Skin: COMMON NORMALS: no jaundice, no petechiae and no mottling OTHER: scattered pock-marked lesions diffusely Data : 12/13/19 03:37 12/13/19 03:37 Micro: Microbiology 12/12/19 04:25 Urine Culture - Preliminary Urine,Voided 12/12/19 04:25 Chlamydia trachomatis ([facility]) - Final Urine Random Neisseria gonorrhoeae ([facility]) - Final A&P Assessment and plan (1) Hypertensive emergency: -significantly elevated BP, remains high -off NTG drip and switched to nicardipine drip with more effective BP control; wean off as tolerated -continue BB, amlodipine, hydralazine, clonidine, imdur -noted evidence of end-organ damage, including elevated troponin, renal impairment, pulmonary edema -CT head: Unremarkable -close monitoring of BP -renal US showing evidence of chronic kidney disease bilaterally -Echo: EF=50%, global wall motion abnormalities, trace MR -received 80 mg of IV Lasix in ED -BNP-2208 Status: Acute Code(s): I16.1 - Hypertensive emergency (2) Epididymitis: -R epididymitis with R hydrocele on imaging -hx of STI; NG, CT screening negative; requested trichomonas testing -received dose of Ceftriaxone, continue Doxycycline x 10 days; d/c Levaquin as likely STI related -pain control as needed Status: Acute Code(s): N45.1 - Epididymitis (3) History of methamphetamine use: -UDS positive for methamphetamines; denies use; previously positive -could be contributing to hypertensive emergency Status: Acute Code(s): Z87.898 - Personal history of other specified conditions (4) CKD (chronic kidney disease): -CKD stage 2-3; baseline Cr around 2 -noted elevated microalbumin/Cr ratio -has had good urine output -avoid nephrotoxins, renally dose meds -renal US showing evidence of chronic kidney disease bilaterally Status: Acute Qualifiers: Chronic kidney disease stage: stage 3 (moderate) Qualified Code(s): N18.3 - Chronic kidney disease, stage 3 (moderate) Code(s): N18.9 - Chronic kidney disease, unspecified Additional A&P Information -Obesity: BMI-33 kg/m2 -HTN -Pre-DM; A1c-6.1 -cardiac diet as tolerated -DVT ppx with Lovenox -Dispo: home -Code status: FULL code -Continue ICU care due to need for nicardipine drip Attestations Medical Necessity Statement*: Patient requires hospitalization for continued management of hypertensive emergency, weaning off nicardipine drip to ensure continued control with oral antihypertensives. Time Spent in Patient Care: Greater than 35 minutes (>than 50% of time spent in counselling and/or direct pt care on unit). Coding Level of Care Code Acute Embedded Hardware Engineer for Matthewg Fwd Exam Problem Focused Diagnoses Hypertensive emergency I16.1 Epididymitis N45.1 History of methamphetamine use Z87.898 CKD (chronic kidney disease) N18.3 Chronic kidney disease stage: stage 3 (moderate)
--- NOTE | 2019-12-13 14:07 | PC.CHAP ---
Pastoral Care Encounter/Spiritual Assessment Type of Contact [] Declined staffing operations manager visit [] Patient/Family/Request visit [] Outpatient visit [] Follow-up visit [] Physician referral [] Code/Alert [x] Routine visit [] Staff referral [] Actively dying [x] Patient sleeping [] Family support [] [] Out of room [] Palliative care [] [] Receiving care in room [] Pre-surgical visit [] Trauma [] Long length of stay [x] ICU visit [] Other: Relational/Emotional Strength [] Patient feels connected with others/family/visitors/staff [] Distress [] Loneliness/isolation [] Abandonment Spirituality of Patient [] Person of Trista [] Attends Roman Catholic of their Trista [] Believes in Prayer [] Reads Bible or Pentecostal materials [] There are Spiritual issues to be addressed Human Anatomy Teacher Interventions [] Prayer [] Active listening [] Non-anxious presence [] Spiritual/emotional support [] Crisis/trauma care [] Spiritual counseling [] Bereavement support [] Provided bereavement packet [] Provided Bible/devotional materials [] Provided toy/stuffed animal, coloring book to patient or family member [] Provided Communion [] Anointing/[place] [] Salvation [] Completed spiritual assessment [] Other: Impact on Illness or Injury [] Angry [] Fearful [] Anxious [] Often cries [] Exhaustion [] Unable to work [] Unable to attend denominational [] Unable to walk/stand [] Unable to read [] Unable to drive [] Unable to eat/drink [] Unable to sleep [] Unable to be with family [] Patient intubated [] Other: Summary Robinson did not disturb patient resting. Time spent with patient
[2019-12-13] MEDS: hyDRALAzine 50 mg Tablet 100 MG PO ×2 (15:27→21:07)
[2019-12-13] MEDS: morphine 4 mg/mL SDV 1 mL 2 MG IVP ×2 (18:20→23:14)
[2019-12-13] MEDS: metoprolol tartrate 50 mg Tablet PO (21:07)
[2019-12-13] MEDS: nicotine 14 mg Patch 1 PATCH TRANSDERMA (23:29)
[2019-12-13] MEDS: hyDROXYzine 25 mg Capsule PO (23:29)
[2019-12-14] VITALS (27 sets, daily range): BP systolic 116–189; BP diastolic 77–135; PULSE 75–108; RESP 14–20; TEMP 36.5–37.2; O2SAT 90–100; BMI 33.5
[2019-12-14 04:52] LABS: Basophils # 0.1 10^3/uL (0.0-0.1); Basophils % 0.8 %; Eosinophils # 0.4 10^3/uL (0.0-0.8); Eosinophils % 5.4 %; Hematocrit 42.5 % (42.0-52.0); Hemoglobin 13.6 g/dL (11.7-16.6); Lymphocytes # 1.9 10^3/uL (0.8-4.8); Lymphocytes % 23.3 %; Mean Corpuscular Hemoglobin 26.6 pg (28.0-34.0); Mean Corpuscular Volume 83.2 fL (80-94); Mean Platelet Volume 10.1 fL (7.4-10.4); Monocytes # 0.7 10^3/uL (0.2-0.9); Monocytes % 8.6 %; Neutrophils # 4.9 10^3/uL (1.8-7.7); Neutrophils % 61.5 %; Nucleated Red Blood Cells % 0 %; Platelet Count 326 10^3/cmm (130-400); Red Blood Count 5.11 10^6/uL (4.1-5.3); Red Cell Distribution Width 13.8 % (12.1-15.1)
[2019-12-14 05:12] LABS: Alanine Aminotransferase 14 U/L (0-41); Albumin Level 3.5 g/dL (3.5-5.2); Alkaline Phosphatase 91 IU/L (40-130); Anion Gap 16.1 (5-19); Aspartate Amino Transferase 18 U/L (0-40); Blood Urea Nitrogen 16 mg/dL (6-20); Calcium 9.8 mg/dL (8.5-10.5); Carbon Dioxide 24 mmol/L (22-29); Chloride 101 mmol/L (98-107); Globulin 3.6 g/dL (1.3-4.6); Glomerular Filtration Rate 51.1 mL/min (90-130); Glucose 131 mg/dL (65-115); Phosphorus 3.1 mg/dL (2.5-4.5); Potassium 4.1 mmol/L (3.5-5.1); Sodium 137 mmol/L (136-145); Total Bilirubin 0.3 mg/dL (0.15-1.2); Total Protein 7.1 g/dL (6.6-8.7)
[2019-12-14] MEDS: acetaminophen 325 mg Tablet 650 MG PO (06:26)
[2019-12-14] MEDS: morphine 4 mg/mL SDV 1 mL IVP (08:09)
[2019-12-14] MEDS: enoxaparin 40 mg/0.4 mL Syringe SUBCUT (08:09)
[2019-12-14] MEDS: metoprolol tartrate 50 mg Tablet PO ×2 (08:10→17:16)
[2019-12-14] MEDS: isosorbide mononitrate ER 30 mg Tablet PO (08:10)
[2019-12-14] MEDS: hyDRALAzine 50 mg Tablet 100 MG PO ×3 (08:10→21:18)
[2019-12-14] MEDS: doxycycline 100 mg Tablet PO ×2 (08:10→17:16)
[2019-12-14] MEDS: amlodipine 10 mg Tablet PO (08:11)
[2019-12-14] MEDS: cloNIDine 0.1 mg Tablet PO ×2 (08:11→14:41)
[2019-12-14] MEDS: nicotine 14 mg Patch 1 PATCH TRANSDERMA (08:11)
[2019-12-14] MEDS: morphine 4 mg/mL SDV 1 mL 2 MG IVP (17:19)
--- NOTE | 2019-12-14 17:36 | PC.CHAP ---
Pastoral Care Encounter/Spiritual Assessment Type of Contact [] Declined treasury assistant visit [] Patient/Family/Request visit [] Outpatient visit [] Follow-up visit [] Physician referral [] Code/Alert [x] Routine visit [] Staff referral [] Actively dying [] Patient sleeping [] Family support [] [] Out of room [] Palliative care [] [] Receiving care in room [] Pre-surgical visit [] Trauma [] Long length of stay [x] ICU visit [] Other: Relational/Emotional Strength [] Patient feels connected with others/family/visitors/staff [] Distress [] Loneliness/isolation [] Abandonment Spirituality of Patient [] Person of Trista [] Attends Tenriism of their [place] [] Believes in Prayer [] Reads Bible or Holiness materials [x] There are Spiritual issues to be addressed Sanitation Worker Hosing Machinery Interventions [] Prayer [x] Active listening [x] Non-anxious presence [] Spiritual/emotional support [] Crisis/trauma care [] Spiritual counseling [] Bereavement support [] Provided bereavement packet [] Provided Bible/devotional materials [] Provided toy/stuffed animal, coloring book to patient or family member [] Provided Communion [] Anointing/[place] [] Salvation [x] Completed spiritual assessment [] Other: Impact on Illness or Injury [] Angry [] Fearful [] Anxious [] Often cries [] Exhaustion [] Unable to work [] Unable to attend nondenominational [] Unable to walk/stand [] Unable to read [] Unable to drive [] Unable to eat/drink [] Unable to sleep [] Unable to be with family [] Patient intubated [] Other: Summary Patient stated that he had already had tests and was waiting for results. Patient stated he did not need anything from the chaplains and did not want prayer. Patient was visited by Sanitation Worker Hosing Machinery José Miguel Galo. Time spent with patient 5 minutes
--- NOTE | 2019-12-14 18:38 | PM.PN ---
Subjective Subjective: Interval history: Blood pressure remains elevated, still on nicardipine drip. Increase dose of clonidine, metoprolol and restart lisinopril. Discontinue IV fluid hydration. Remains quite fatigued though headache has resolved. Medications: Reviewed: Yes Medication Review Details: Current Medications Generic Name Dose Route Start Last Admin Trade Name Freq PRN Reason Stop Dose Admin Acetaminophen 650 mg 12/12/19 03:26 12/14/19 06:26 Tylenol PO 650 mg Q6H PRN Administration Mild/Mod Pain Or Temp >/= 101 Amlodipine Besylat e 10 mg 12/12/19 10:30 12/14/19 08:11 Norvasc PO 10 mg DAILY MAKENZIE Administration Doxycycline Monohy drate 100 mg 12/12/19 09:00 12/14/19 17:16 Vibramycin PO 100 mg BID MAKENZIE Administration Protocol Enoxaparin Sodium 40 mg 12/13/19 09:00 12/14/19 08:09 Lovenox SUBCUT 40 mg Q24H MAKENZIE Administration Hydralazine HCl 100 mg 12/13/19 15:00 12/14/19 14:40 Apresoline PO 100 mg TID MAKENZIE Administration Nicardipine HCl 25 mg/ Sodium 250 mls @ 0 mls/h r 12/12/19 21:30 12/14/19 17:16 Chloride IV 3 mg/hr .Q0M MAKENZIE 30 mls/hr Administration Protocol Per Protocol Isosorbide Mononit rate 30 mg 12/12/19 21:50 12/14/19 08:10 Imdur PO 30 mg DAILY MAKENZIE Administration Morphine Sulfate 2 mg 12/12/19 03:26 12/14/19 17:19 Morphine IVP 2 mg Q4H PRN Administration SEVERE PAIN Nicotine 1 patch 12/13/19 23:15 12/14/19 08:11 Nicoderm 14 Mg P atch TRANSDERMA 1 patch DAILY MAKENZIE Administration Ondansetron HCl 4 mg 12/12/19 03:26 12/12/19 10:59 Zofran IVP 4 mg Q6H PRN Administration NAUSEA AND VOMITI NG Vitals/I&O/Wt Last Vital Signs Temp 98.2 F 12/14/19 15:00 Pulse 90 12/14/19 18:00 Resp 16 12/14/19 17:19 BP 156/101 12/14/19 18:00 Pulse Ox 95 12/14/19 18:00 12/14/19 12/14/19 12/14/19 06:59 14:59 22:59 Intake Total 1250 / 3165.833 970 / 970 719 / 1689 Output Total 1725 / 3225 400 / 400 500 / 900 Balance -475 / -59.167 570 / 570 219 / 789 Weight last 48 hrs Weight 124.738 kg Weight 124.466 kg Physical Exam Const: COMMON NORMALS: no apparent distress and oriented x3 GENERAL APPEARANCE: cooperative and comfortable ORIENTATION/CONSCIOUSNESS: Yes awake HENMT: COMMON NORMALS: normocephalic, head/scalp atraumatic, hearing grossly normal bilaterally and moist oral mucous membranes HEAD & SCALP: normocephalic and atraumatic Eye: COMMON NORMALS: PERRL, EOMs intact bilaterally and conjunctivae normal CONJUNCTIVA: Yes conjunctivae normal PUPIL: Yes PERRL Neck/C-Spine: COMMON NORMALS: full ROM GENERAL: Yes normal visual inspection and Yes trachea midline Resp: COMMON NORMALS: normal respiratory effort, no retractions, no use of accessory muscles and clear to auscultation bilaterally EFFORT & INSPECTION: Yes able to speak in complete sentences, Yes symmetric chest movement and No tachypneic AUSCULTATION: clear to auscultation bilaterally Cardio: COMMON NORMALS: regular rate, regular rhythm, S1 normal heart sound, S2 normal heart sound and no murmurs RATE: regular rate RHYTHM: regular rhythm HEART SOUNDS: S1 normal and S2 normal GI: COMMON NORMALS: normal to inspection, nondistended, normoactive bowel sounds, soft to palpation and non-tender PALPATION: Yes soft Extremity: COMMON NORMALS: normal to inspection, full ROM and no clubbing, cyanosis or edema; negative for no pedal edema Neuro: COMMON NORMALS: oriented x3, moves all extremities, no focal motor deficits, no sensory deficits noted and gait normal Psych: COMMON NORMALS: mental status grossly normal, thought process normal, cooperative, affect normal and speech normal SPEECH: Yes normal speech THOUGHT PROCESS: normal thought process Skin: COMMON NORMALS: no jaundice, no petechiae and no mottling OTHER: scattered pock-marked lesions diffusely Data : 12/14/19 04:13 12/14/19 04:13 Micro: Microbiology 02/08/20 04:25 Urine Culture - Final Urine,Voided A&P Assessment and plan (1) Hypertensive emergency: -significantly elevated BP, remains high -off NTG drip and switched to nicardipine drip with more effective BP control; wean off as tolerated -continue BB, amlodipine, hydralazine, clonidine, imdur; titrate as needed for optimal response. May consider adding diuretic if renal function allows -noted evidence of end-organ damage, including elevated troponin, renal impairment, pulmonary edema -CT head: Unremarkable -close monitoring of BP -renal US showing evidence of chronic kidney disease bilaterally -Echo: EF=50%, global wall motion abnormalities, trace MR -received 80 mg of IV Lasix in ED -[id number] Status: Acute Code(s): I16.1 - Hypertensive emergency (2) Epididymitis: -R epididymitis with R hydrocele on imaging -hx of STI; NG, CT screening negative; requested trichomonas testing -received dose of Ceftriaxone, continue Doxycycline x 10 days; d/c Levaquin as likely STI related -pain control as needed Status: Acute Code(s): N45.1 - Epididymitis (3) History of methamphetamine use: -UDS positive for methamphetamines; denies use; previously positive -could be contributing to hypertensive emergency Status: Acute Code(s): Z87.898 - Personal history of other specified conditions (4) CKD (chronic kidney disease): -CKD stage 2-3; baseline Cr around 2 -noted elevated microalbumin/Cr ratio -has had good urine output -avoid nephrotoxins, renally dose meds -renal US showing evidence of chronic kidney disease bilaterally Status: Acute Qualifiers: Chronic kidney disease stage: stage 3 (moderate) Qualified Code(s): N18.3 - Chronic kidney disease, stage 3 (moderate) Code(s): N18.9 - Chronic kidney disease, unspecified Additional A&P Information -Obesity: BMI-33 kg/m2 -HTN -Pre-DM; A1c-6.1 -cardiac diet as tolerated -DVT ppx with Lovenox -Dispo: home -Code status: FULL code -Continue ICU care due to need for nicardipine drip Attestations Medical Necessity Statement*: Requires hospitalization for continued management of hypertensive emergency, remains on multiple oral antihypertensives and nicardipine with continued hypertension. Time Spent in Patient Care: Greater than 35 minutes (>than 50% of time spent in counselling and/or direct pt care on unit). Coding Level of Care Code Acute Hospital Orderly for Chg Fwd Diagnoses Hypertensive emergency I16.1 Epididymitis N45.1 History of methamphetamine use Z87.898 CKD (chronic kidney disease) N18.3 Chronic kidney disease stage: stage 3 (moderate)
[2019-12-14] MEDS: cloNIDine 0.1 mg Tablet 0.2 MG PO (21:19)
[2019-12-14] MEDS: hydroCHLOROthiazide 25 mg Tablet PO (21:19)
--- NOTE | 2019-12-14 21:52 | PC.NURSE ---
After 1900, this nurse inadvertently charted under another nurse's name.
[2019-12-15] VITALS (20 sets, daily range): BP systolic 111–177; BP diastolic 70–113; PULSE 70–110; RESP 18–24; TEMP 36.4–37.2; O2SAT 90–99; BMI 32.1
--- NOTE | 2019-12-15 00:08 | PC.NURSE ---
CLC performed per patient request. Patient up to chair during linen change. Back to bed after linen change. Tolerated well. Will monitor.
[2019-12-15] MEDS: morphine 4 mg/mL SDV 1 mL 2 MG IVP ×2 (02:39→10:50)
--- NOTE | 2019-12-15 02:58 | PC.NURSE ---
Morphine 2mg IVP given per patient request for headache. Rating pain at 8/10. S/O at bedside. Will monitor
[2019-12-15 05:06] LABS: Basophils # 0.1 10^3/uL (0.0-0.1); Basophils % 1.2 %; Eosinophils # 0.5 10^3/uL (0.0-0.8); Eosinophils % 5.9 %; Hematocrit 45.5 % (42.0-52.0); Hemoglobin 14.5 g/dL (11.7-16.6); Lymphocytes # 2.7 10^3/uL (0.8-4.8); Mean Corpuscular HGB Conc 31.9 g/dL (30.0-36.0); Mean Corpuscular Hemoglobin 26.7 pg (28.0-34.0); Mean Corpuscular Volume 83.6 fL (80-94); Mean Platelet Volume 9.7 fL (7.4-10.4); Monocytes # 0.7 10^3/uL (0.2-0.9); Neutrophils # 4.1 10^3/uL (1.8-7.7); Neutrophils % 50.4 %; Nucleated Red Blood Cells % 0 %; Platelet Count 355 10^3/cmm (130-400); Red Blood Count 5.44 10^6/uL (4.1-5.3); Red Cell Distribution Width 13.9 % (12.1-15.1); White Blood Count 8.1 10^3/uL (4.0-10.0)
--- NOTE | 2019-12-15 06:12 | PC.NURSE ---
Cardene drip increased to 4mg/hr or 40ml/hr for BP of 168/112. Denies complaints at this time. Will monitor.
--- NOTE | 2019-12-15 06:32 | PC.NURSE ---
BP 158/114. Cardene drip increased to 50ml/hr or 5mg/hr. Patient resting with eyes closed. Respirations even and unlabored with no s/s of distress noted. Will monitor.
[2019-12-15] MEDS: doxycycline 100 mg Tablet PO (08:55)
[2019-12-15] MEDS: cloNIDine 0.1 mg Tablet 0.2 MG PO ×2 (08:55→14:51)
[2019-12-15] MEDS: amlodipine 10 mg Tablet PO (08:55)
[2019-12-15] MEDS: hyDRALAzine 50 mg Tablet 100 MG PO ×2 (08:56→14:51)
[2019-12-15] MEDS: hydroCHLOROthiazide 25 mg Tablet PO (08:57)
[2019-12-15] MEDS: lisinopril 20 mg Tablet PO (08:57)
[2019-12-15] MEDS: metoprolol tartrate 50 mg Tablet 100 MG PO (08:58)
[2019-12-15] MEDS: nicotine 14 mg Patch 1 PATCH TRANSDERMA (08:59)
[2019-12-15] MEDS: isosorbide mononitrate ER 30 mg Tablet PO (08:59)
[2019-12-15] MEDS: enoxaparin 40 mg/0.4 mL Syringe SUBCUT (09:07)
--- NOTE | 2019-12-15 11:38 | P.PN_ITS ---
Subjective Subjective: Interval history: Still working on weaning off nicardipine drip. Continue oral antihypertensives. Most recent blood pressure is 152/96 though he was quite hypertensive overnight. Renal function is slowly improving. Able to finally wean off nicardipine drip in the afternoon. Blood pressure continues to be controlled with multiple oral antihypertensives. Medications: Reviewed: Yes Medication Review Details: Current Medications Generic Name Dose Route Start Last Admin Trade Name Freq PRN Reason Stop Dose Admin Acetaminophen 650 mg 12/12/19 03:26 12/14/19 06:26 Tylenol PO 650 mg Q6H PRN Administration Mild/Mod Pain Or Temp >/= 101 Amlodipine Besylat e 10 mg 12/12/19 10:30 12/15/19 08:55 Norvasc PO 10 mg DAILY MAKENZIE Administration Clonidine HCl 0.2 mg 12/14/19 21:00 12/15/19 08:55 Catapres PO 0.2 mg TID MAKENZIE Administration Doxycycline Monohy drate 100 mg 12/12/19 09:00 12/15/19 08:55 Vibramycin PO 100 mg BID MAKENZIE Administration Protocol Enoxaparin Sodium 40 mg 12/13/19 09:00 12/15/19 09:07 Lovenox SUBCUT 40 mg Q24H MAKENZIE Administration Hydralazine HCl 100 mg 12/13/19 15:00 12/15/19 08:56 Apresoline PO 100 mg TID MAKENZIE Administration Hydrochlorothiazid e 25 mg 12/14/19 18:45 12/15/19 08:57 Hctz PO 25 mg DAILY MAKENZIE Administration Nicardipine HCl 25 mg/ Sodium 250 mls @ 0 mls/h r 12/12/19 21:30 12/15/19 10:05 Chloride IV 4 mg/hr .Q0M MAKENZIE 40 mls/hr Administration Protocol Per Protocol Isosorbide Mononit rate 30 mg 12/12/19 21:50 12/15/19 08:59 Imdur PO 30 mg DAILY MAKENZIE Administration Lisinopril 20 mg 12/12/19 09:00 12/15/19 08:57 Prinivil PO 20 mg BID MAKENZIE Administration Metoprolol Tartrat e 100 mg 12/15/19 09:00 12/15/19 08:58 Lopressor PO 100 mg BID MAKENZIE Administration Morphine Sulfate 2 mg 12/12/19 03:26 12/15/19 10:50 Morphine IVP 2 mg Q4H PRN Administration SEVERE PAIN Nicotine 1 patch 12/13/19 23:15 12/15/19 08:59 Nicoderm 14 Mg P atch TRANSDERMA 1 patch DAILY MAKENZIE Administration Ondansetron HCl 4 mg 12/12/19 03:26 12/12/19 10:59 Zofran IVP 4 mg Q6H PRN Administration NAUSEA AND VOMITI NG Vitals/I&O/Wt Last Vital Signs Temp 98.7 F 12/15/19 04:00 Pulse 78 12/15/19 11:00 Resp 20 H 12/15/19 06:00 BP 152/96 12/15/19 11:00 Pulse Ox 91 12/15/19 11:00 Vital Signs 12/15/19 04:00 12/15/19 05:00 12/15/19 06:00 Temperature 98.7 F Pulse Rate 95 94 105 H Respiratory Rate 20 H 20 H Blood Pressure 168/107 160/112 155/113 Pulse Oximetry 93 95 90 12/15/19 07:00 12/15/19 08:00 12/15/19 08:49 Temperature Pulse Rate 99 107 H 88 Respiratory Rate Blood Pressure 152/111 167/106 Pulse Oximetry 94 93 95 12/15/19 09:00 12/15/19 10:00 12/15/19 11:00 Temperature Pulse Rate 99 95 78 Respiratory Rate Blood Pressure 153/112 177/109 152/96 Pulse Oximetry 92 94 91 12/14/19 12/15/19 12/15/19 22:59 06:59 14:59 Intake Total 839 / 1809 964.5 / 2773.5 715.5 / 715.5 Output Total 850 / 1250 1875 / 3125 425 / 425 Balance -11 / 559 -910.5 / -351.5 290.5 / 290.5 Weight last 48 hrs Weight 119.862 kg Weight 124.738 kg Physical Exam Const: COMMON NORMALS: no apparent distress and oriented x3 GENERAL APPEARANCE: cooperative and comfortable ORIENTATION/CONSCIOUSNESS: Yes awake HENMT: COMMON NORMALS: normocephalic, head/scalp atraumatic, hearing grossly normal bilaterally and moist oral mucous membranes HEAD & SCALP: normocephalic and atraumatic Eye: COMMON NORMALS: PERRL, EOMs intact bilaterally and conjunctivae normal CONJUNCTIVA: Yes conjunctivae normal PUPIL: Yes PERRL Neck/C-Spine: COMMON NORMALS: full ROM GENERAL: Yes normal visual inspection and Yes trachea midline Resp: COMMON NORMALS: normal respiratory effort, no retractions, no use of accessory muscles and clear to auscultation bilaterally EFFORT & INSPECTION: Yes able to speak in complete sentences, Yes symmetric chest movement and No tachypneic AUSCULTATION: clear to auscultation bilaterally Cardio: COMMON NORMALS: regular rate, regular rhythm, S1 normal heart sound, S2 normal heart sound and no murmurs RATE: regular rate RHYTHM: regular rhythm HEART SOUNDS: S1 normal and S2 normal GI: COMMON NORMALS: normal to inspection, nondistended, normoactive bowel sounds, soft to palpation and non-tender PALPATION: Yes soft Extremity: COMMON NORMALS: normal to inspection, full ROM and no clubbing, cyanosis or edema; negative for no pedal edema Neuro: COMMON NORMALS: oriented x3, moves all extremities, no focal motor deficits, no sensory deficits noted and gait normal Psych: COMMON NORMALS: mental status grossly normal, thought process normal, cooperative, affect normal and speech normal SPEECH: Yes normal speech THOUGHT PROCESS: normal thought process Skin: COMMON NORMALS: no jaundice, no petechiae and no mottling OTHER: scattered pock-marked lesions diffusely Data : 12/15/19 04:30 12/14/19 04:13 Micro: Microbiology 12/12/19 04:25 Urine Culture - Final Urine,Voided A&P Assessment and plan (1) Hypertensive emergency: -significantly elevated BP, remains high -off NTG drip and switched to nicardipine drip with more effective BP control; wean off as tolerated -continue BB, amlodipine, hydralazine, clonidine, imdur; titrate as needed for optimal response. Added HCTZ -noted evidence of end-organ damage, including elevated troponin, renal impairment, pulmonary edema -CT head: Unremarkable -close monitoring of BP -renal US showing evidence of chronic kidney disease bilaterally -Echo: EF=50%, global wall motion abnormalities, trace MR -received 80 mg of IV Lasix in ED -BNP-2208 Status: Acute Code(s): I16.1 - Hypertensive emergency (2) Epididymitis: -R epididymitis with R hydrocele on imaging -hx of STI; NG, CT screening negative; requested trichomonas testing -received dose of Ceftriaxone, continue Doxycycline x 10 days (day 4); d/c Levaquin as likely STI related -pain control as needed Status: Acute Code(s): N45.1 - Epididymitis (3) History of methamphetamine use: -UDS positive for methamphetamines; denies use; previously positive -could be contributing to hypertensive emergency Status: Acute Code(s): Z87.898 - Personal history of other specified conditions (4) CKD (chronic kidney disease): -CKD stage 2-3; baseline Cr around 2 -noted elevated microalbumin/Cr ratio -has had good urine output -avoid nephrotoxins, renally dose meds -renal US showing evidence of chronic kidney disease bilaterally Status: Acute Qualifiers: Chronic kidney disease stage: stage 3 (moderate) Qualified Code(s): N18.3 - Chronic kidney disease, stage 3 (moderate) Code(s): N18.9 - Chronic kidney disease, unspecified Additional A&P Information -Obesity: BMI-33 kg/m2 -HTN -Pre-DM; A1c-6.1 -cardiac diet as tolerated -DVT ppx with Lovenox -Dispo: home -Code status: FULL code -Continue ICU care due to need for nicardipine drip Attestations Medical Necessity Statement*: Patient requires hospitalization for continued management of hypertensive emergency, on nicardipine drip and multiple oral antihypertensives. Time Spent in Patient Care: Greater than 35 minutes (>than 50% of time spent in counselling and/or direct pt care on unit) . Coding Level of Care Code Acute [employer] Development Specialist for [facility] Exam Problem Focused Diagnoses Hypertensive emergency I16.1 Epididymitis N45.1 History of methamphetamine use Z87.898 CKD (chronic kidney disease) N18.3 Chronic kidney disease stage: stage 3 (moderate)
--- NOTE | 2019-12-15 11:48 | PC.CHAP ---
Pastoral Care Encounter/Spiritual Assessment Type of Contact [] Declined home health travel pt visit [] Patient/Family/Request visit [] Outpatient visit [] Follow-up visit [] Physician referral [] Code/Alert [x] Routine visit [] Staff referral [] Actively dying [] Patient sleeping [] Family support [] [] Out of room [] Palliative care [] [] Receiving care in room [] Pre-surgical visit [] Trauma [] Long length of stay [x] ICU visit [] Other: Relational/Emotional Strength [] Patient feels connected with others/family/visitors/staff [] Distress [] Loneliness/isolation [] Abandonment Spirituality of Patient [x] Person of Trista [x] Attends Roman Catholic of their Trista [] Believes in Prayer [] Reads Bible or Episcopalian materials [] There are Spiritual issues to be addressed Intake Man Interventions [x] Prayer [] Active listening [] Non-anxious presence [] Spiritual/emotional support [] Crisis/trauma care [] Spiritual counseling [] Bereavement support [] Provided bereavement packet [] Provided Bible/devotional materials [] Provided toy/stuffed animal, coloring book to patient or family member [] Provided Communion [] Anointing/[place] [] Salvation [] Completed spiritual assessment [] Other: Impact on Illness or Injury [] Angry [] Fearful [] Anxious [] Often cries [] Exhaustion [] Unable to work [] Unable to attend rastafarian [] Unable to walk/stand [] Unable to read [] Unable to drive [] Unable to eat/drink [] Unable to sleep [] Unable to be with family [] Patient intubated [] Other: Summary Patient feeling much better. Time spent with patient 10min
--- NOTE | 2019-12-15 15:31 | PM.DCS ---
Discharge Providers Date of Admission: 12/12/19 02:16 Date of Discharge: December 15, 2019 Attending Provider at Admission: Kade Shepherd MD Attending Provider at Discharge: Aurora Hunt MD Diagnoses at Discharge Discharge Diagnosis (1) Hypertensive emergency: Status: Acute Problem details: -significantly elevated BP, remains high -off NTG drip and weaned off nicardipine drip -continue BB, amlodipine, hydralazine, clonidine, imdur; titrate as needed for optimal response. Added HCTZ -noted evidence of end-organ damage, including elevated troponin, renal impairment, pulmonary edema -CT head: Unremarkable -close monitoring of BP -renal US showing evidence of chronic kidney disease bilaterally -Echo: EF=50%, global wall motion abnormalities, trace MR -received 80 mg of IV Lasix in ED -BNP-8 (2) Epididymitis: Status: Acute Problem details: -R epididymitis with R hydrocele on imaging -hx of STI; NG, CT screening negative; requested trichomonas testing -received dose of Ceftriaxone, continue Doxycycline x 10 days (day 4); d/c Levaquin as likely STI related -pain control as needed (3) History of methamphetamine use: Status: Acute Problem details: -UDS positive for methamphetamines; denies use; previously positive -could be contributing to hypertensive emergency (4) CKD (chronic kidney disease): Status: Acute Problem details: -CKD stage 2-3; baseline Cr around 2 -noted elevated microalbumin/Cr ratio -has had good urine output -avoid nephrotoxins, renally dose meds -renal US showing evidence of chronic kidney disease bilaterally Qualifiers: Chronic kidney disease stage: stage 3 (moderate) Qualified Code(s): N18.3 - Chronic kidney disease, stage 3 (moderate) Other Information Additional DC diagnoses/information: -Obesity: BMI-33 kg/m2 -HTN -Pre-DM; A1c-6.1 Reason for Visit Reason for Visit: Reason For Visit: hernia/pain Hospital Course Hospital Course: Patient was admitted to ICU due to hypertensive emergency and need for strict blood pressure control. He initially was started on a nitroglycerin drip but this was not effective for blood pressure control so this was discontinued and he was started on a nicardipine drip. He has had better blood pressure control but unfortunately it was quite challenging to wean this off. Eventually we were able to wean off any nicardipine drip with introduction of multiple oral antihypertensives and appropriate titration for optimal blood pressure control. He was found to have evidence of endorgan damage including chronic kidney disease, elevated troponins, pulmonary edema secondary to elevated blood pressure. He had extensive work-up done as noted above. Patient was also found to have right epididymitis and received a dose of ceftriaxone and was started on a course of doxycycline. He was screened for GC and CT both of which were negative. I requested trichomonas testing as well which is currently pending. He was found to be positive for methamphetamines though denies recent use. He is educated on need to continue to monitor his blood pressure closely on discharge and follow-up with primary care provider once care is established. Discharge Summary: -to encourage compliance, medications were delivered to bedside prior to discharge -BP monitoring kit was provided as well -Patient scheduled to f/u with Dr. Shepherd on 12/18/19 @ 11:30 a.m. Physical Exam Const: COMMON NORMALS: no apparent distress and oriented x3 GENERAL APPEARANCE: cooperative and comfortable ORIENTATION/CONSCIOUSNESS: Yes awake HENMT: COMMON NORMALS: normocephalic, head/scalp atraumatic, hearing grossly normal bilaterally and moist oral mucous membranes HEAD & SCALP: normocephalic and atraumatic Eye: COMMON NORMALS: PERRL, EOMs intact bilaterally and conjunctivae normal CONJUNCTIVA: Yes conjunctivae normal PUPIL: Yes PERRL Neck/C-Spine: COMMON NORMALS: full ROM GENERAL: Yes normal visual inspection and Yes trachea midline Resp: COMMON NORMALS: normal respiratory effort, no retractions, no use of accessory muscles and clear to auscultation bilaterally EFFORT & INSPECTION: Yes able to speak in complete sentences, Yes symmetric chest movement and No tachypneic AUSCULTATION: clear to auscultation bilaterally Cardio: COMMON NORMALS: regular rate, regular rhythm, S1 normal heart sound, S2 normal heart sound and no murmurs RATE: regular rate RHYTHM: regular rhythm HEART SOUNDS: S1 normal and S2 normal GI: COMMON NORMALS: normal to inspection, nondistended, normoactive bowel sounds, soft to palpation and non-tender PALPATION: Yes soft Extremity: COMMON NORMALS: normal to inspection, full ROM and no clubbing, cyanosis or edema; negative for no pedal edema Neuro: COMMON NORMALS: oriented x3, moves all extremities, no focal motor deficits, no sensory deficits noted and gait normal Psych: COMMON NORMALS: mental status grossly normal, thought process normal, cooperative, affect normal and speech normal SPEECH: Yes normal speech THOUGHT PROCESS: normal thought process Skin: COMMON NORMALS: no jaundice, no petechiae and no mottling OTHER: scattered pock-marked lesions diffusely Discharge Data Data Completed and Pending: Completed Studies During Hospitalization Category Date Time Status CT abdomen pelvis wo con [id number] Urge nt Cat Scan 12/11/19 22:[address] head wo con* 7 0450 Stat Cat Scan 12/12/19 03:27 Completed CV echo complete* [id number] Routine Ultrasound 12/12/19 03:26 Completed US renal BI* [id number] Routine Ultrasound 12/12/19 03:26 Completed US scrotum [id number] Urgent Ultrasound 12/12/19 01:17 Completed Pending at discharge Category Date Time Status Miscellaneous Myra t Routine Lab 12/12/19 04:25 Received Labs from last 24 hours 12/15/19 12/12/19 04:30 03:53 WBC 8.1 RBC 5.44 H Hgb 14.5 Hct 45.5 MCV 83.6 MCH 26.7 L MCHC 31.9 RDW 13.9 Plt Count 355 MPV 9.7 Neut % (Auto) 50.4 Lymph % (Auto) 33.0 [place] % (Auto) 9.0 Eos % (Auto) 5.9 Baso % (Auto) 1.2 Neut # (Auto) 4.1 Lymph # (Auto) 2.7 [place] # (Auto) 0.7 Eos # (Auto) 0.5 Baso # (Auto) 0.1 Nucleated RBC % (a uto) 0 Nucleated RBCs # 0.0 Aldosterone 3 Vitals: Last Vital Signs Temp 98.7 F 12/15/19 04:00 Pulse 78 12/15/19 11:00 Resp 20 H 12/15/19 06:00 BP 152/96 12/15/19 11:00 Pulse Ox 91 12/15/19 11:00 Discharge Plan Discharge Patient Disposition: Home, Self-Care Condition: Stable Prescriptions: New clonidine HCl 0.1 mg Tablet 0.2 mg PO TID 30 Days Qty: 180 RF: 0 isosorbide mononitrate 30 mg Tablet Extended Release 24 Hr 30 mg PO DAILY 30 Days Qty: 30 RF: 0 doxycycline monohydrate 100 mg Tablet 100 mg PO BID 7 Days Qty: 14 RF: 0 amlodipine 10 mg Tablet 10 mg PO DAILY 30 Days Qty: 30 RF: 0 hydralazine 50 mg Tablet 100 mg PO TID 30 Days Qty: 180 RF: 0 hydrochlorothiazide 25 mg Tablet 25 mg PO DAILY 30 Days Qty: 30 RF: 0 metoprolol tartrate 50 mg Tablet 100 mg PO BID 30 Days Qty: 120 RF: 0 Blood Pressure Cuff Misc 1 each miscellaneous ONCE Qty: 1 RF: 0 Changed lisinopril 20 mg Tablet 20 mg PO BID 30 Days Qty: 60 RF: 0 Discharge Orders: Discharge Order (Routine); Ordered 12/15/19 Ordered By: Aurora Hunt Referrals: Kade Shepherd MD [Hospitalist] - 12/18/19 11:30 am (You have an appointment to establish care with Dr. Shepherd at the [facility] on 12/18/19 at 11:30 AM. 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 [facility] is located at [address] [place] [address] and their phone number is: [phone]. Please arrive early to your appointment to fill out new patient paperwork and bring all of your medications with you in their original bottles. You may also call [facility] Case Management with any questions or concerns at [phone] ext. [phone].) Discharge Diet: Cardiac Discharge Activity: Resume usual activity Discharge Attestations Time Spent in Discharge Care*: greater than 30 min Specific Discharge Activities: Specific discharge activities: educating patient, discussing with pcp/other providers, discussing with case management coordinator/social workers/dc planners, documenting/other paperwork and evaluating patient/reviewing data Status at Discharge: Cognitive status at discharge: cognitively intact, Behavioral status at discharge: cooperative, Functional status at discharge: independent ambulation Overall status at discharge: patient is back to baseline Quality Metrics Clinical Quality Measures During this hospital stay, did patient experience: None Coding Level of Care Code Acute [employer] Officer for g Fwd Exam Problem Focused Diagnoses Hypertensive emergency I16.1 Epididymitis N45.1 History of methamphetamine use Z87.898 CKD (chronic kidney disease) N18.3 Chronic kidney disease stage: stage 3 (moderate)
--- NOTE | 2019-12-15 17:21 | PC.NURSE ---
[place] on med[place] [facility]
--- NOTE | 2019-12-15 18:39 | PC.NURSE ---
discharged home via ambulation for family to pick pack worker and to pick pack worker imdur tomorrow, since our pharmacy was out.
[2019-12-17 09:53] LABS: Miscellaneous Test SEE COMMENTS
== END 2019-12-15 18:00 | disposition home or self-care (01) | DRG 282 ==
LOC: ER 22:09 → ICU 12-12 06:49
PROVIDERS: Admitting Provider Family Medicine; Emergency Provider Emergency Medicine; Visit Provider Family Medicine
DX: I16.1 Hypertensive emergency (principal); I21.A1 Myocardial infarction type 2; N45.1 Epididymitis; N18.3 Chronic kidney disease, stage 3 (moderate); E66.9 Obesity, unspecified; Z68.33 Body mass index [BMI] 33.0-33.9, adult; Z79.899 Other long term (current) drug therapy; N43.3 Hydrocele, unspecified; I51.7 Cardiomegaly; R73.03 Prediabetes; F17.200 Nicotine dependence, unspecified, uncomplicated
CPT/HCPCS: 12345; 36415; 70450; 74176; 76770; 76870; 80053; 80061; 80307; 81003; 82044; 82088; 83036; 83735; 83880; 84100; 84443; 84484; 85025; 87086; 87491; 87591; 87661; 93005; 93306; 94002; 94664; 94799; 96372; 96375; 99283; J0360; J0696; J1170; J1650; J1940; J2270; J2405; J3490; J7030; J7050

== ENCOUNTER → 2019-12-18 12:11 | Outpatient (BNVA) | payer SELFPAY | PROVIDERS: Referring Provider Family Medicine; Visit Provider Family Medicine | DX: I12.9 Hypertensive chronic kidney disease with stage 1 through stage 4 chronic kidney disease, or unspecified chronic kidney disease (principal); N18.9 Chronic kidney disease, unspecified; Z87.898 Personal history of other specified conditions; F17.200 Nicotine dependence, unspecified, uncomplicated | CPT/HCPCS: 80053 ==

== ENCOUNTER → 2020-01-15 14:29 | Outpatient (BNVA) | payer SELFPAY | PROVIDERS: Visit Provider Family Medicine | DX: F17.200 Nicotine dependence, unspecified, uncomplicated (principal); N17.9 Acute kidney failure, unspecified; N45.1 Epididymitis; N43.3 Hydrocele, unspecified; M54.9 Dorsalgia, unspecified; I12.9 Hypertensive chronic kidney disease with stage 1 through stage 4 chronic kidney disease, or unspecified chronic kidney disease; N18.9 Chronic kidney disease, unspecified | CPT/HCPCS: 80053; 81000 ==

== ENCOUNTER → 2020-08-03 15:46 | Outpatient (BNVA) | payer OTHER, SELFPAY | PROVIDERS: Visit Provider Internal Medicine | DX: J06.9 Acute upper respiratory infection, unspecified (principal); Z20.828 Contact with and (suspected) exposure to other viral communicable diseases | CPT/HCPCS: 87635 ==

== ENCOUNTER → 2020-10-14 14:52 | Outpatient (BNVA) | payer SELFPAY | PROVIDERS: Visit Provider Nurse Practitioner Family | DX: R05 Cough (principal); J40 Bronchitis, not specified as acute or chronic; I10 Essential (primary) hypertension | CPT/HCPCS: 71046 ==

== ENCOUNTER → 2020-10-20 09:33 | Outpatient (BNVA) | payer SELFPAY | PROVIDERS: Visit Provider Family Medicine Adult Medicine | DX: N45.1 Epididymitis (principal); Z00.00 Encounter for general adult medical examination without abnormal findings; I10 Essential (primary) hypertension; I21.4 Non-ST elevation (NSTEMI) myocardial infarction; N18.4 Chronic kidney disease, stage 4 (severe); I16.1 Hypertensive emergency; N43.3 Hydrocele, unspecified; E66.9 Obesity, unspecified; I51.7 Cardiomegaly | CPT/HCPCS: 80053; 80061; 83036; 84153; 84443; 85025 ==

== ENCOUNTER → 2021-02-20 09:51 | Outpatient (BNVA) | payer SELFPAY | PROVIDERS: PCP Family Medicine Adult Medicine; Visit Provider Family Medicine Adult Medicine | DX: I16.1 Hypertensive emergency (principal); I10 Essential (primary) hypertension; N45.1 Epididymitis; N43.3 Hydrocele, unspecified; E66.9 Obesity, unspecified; K40.90 Unilateral inguinal hernia, without obstruction or gangrene, not specified as recurrent; N18.4 Chronic kidney disease, stage 4 (severe); I21.4 Non-ST elevation (NSTEMI) myocardial infarction | CPT/HCPCS: 80053; 80061 ==

== ENCOUNTER 2021-03-09 15:18 | Outpatient (CLI) | payer SELFPAY ==
--- NOTE | 2021-03-09 15:45 | US_ITS ---
WS: [id number] SCROTAL ULTRASOUND EXAMINATION CLINICAL INFORMATION: N50.82 - Scrotal pain COMPARISON: December 12, 2019 FINDINGS: TESTES Normal in size and echotexture. No suspicious intratesticular lesions. Color Doppler: Normal color Doppler flow pattern. Right testes size: 3.6 cm x 2.8 cm x 3.4 cm. Left testes size: 3.8 cm x 2.8 cm x 2.6 cm. EPIDIDYMIDES Edematous right epididymis with increased vascularity consistent with epididymitis. Enlarged right ep ididymis measures 1.5 x 3.2 CM. Normal left epididymis. HYDROCELE None. VARICOCELE None. OTHER FINDINGS None. US/US scrotum [id number] IMPRESSION: 1. Testicles are normal in appearance with normal vascularity. 2. Right epididymitis with increased vascularity.
== END 2021-03-09 15:19 | disposition home or self-care (01) ==
LOC: RAD 15:21
PROVIDERS: PCP Family Medicine Adult Medicine; Visit Provider Surgery
DX: N50.82 Scrotal pain (principal); N45.1 Epididymitis
CPT/HCPCS: 76870

== ENCOUNTER → 2021-04-19 09:39 | Outpatient (BNVA) | payer SELFPAY | PROVIDERS: PCP Family Medicine Adult Medicine; Referring Provider Surgery; Visit Provider Urology | DX: N43.3 Hydrocele, unspecified (principal); N45.1 Epididymitis; N18.4 Chronic kidney disease, stage 4 (severe) | CPT/HCPCS: 81003 ==

== ENCOUNTER 2021-05-01 16:23 | Outpatient (CLI) | payer SELFPAY ==
--- NOTE | 2021-05-01 16:31 | USR_ITS ---
PROCEDURE INFORMATION: Exam: US Scrotum Exam date and time: 05/01/2021 4:31 PM Age: 41 years old Clinical indication: Scrotum pain; Patient HX: Chronic condition. Starting 3rd round of antibotics; Additional info: Chronic epididymitis, scrotal u/s today for scrotal pain TECHNIQUE: Imaging protocol: Real-time ultrasound of the scrotum and contents with color Doppler and image documentation. COMPARISON: US scrotum [id number] 03/09/2021 3:44 PM FINDINGS: Right testicle: 3.5 4.1 x 2.3 x 3.5 cm. Occasional foci of microlithiasis. No mass. No torsion. Normal vascular flow. The arterial resistive index is 0.46. Left testicle: 4.5 x 1.8 x 2.7 cm. Occasional foci of microlithiasis. No mass. No torsion. Normal vascular flow. The arterial resistive index is 0.57. Epididymides: Right epididymis 8.2 mm thick (previously 15.7 mm), color Doppler hyperemia. Left epididymis 6 mm thickness. Scrotum: Mild bilateral anterior scrotal wall thickening, measuring 6.7 mm on the right (previously 4.3 mm) and 7.7 mm on the left (previously 3.5 mm). Other findings: Right inguinal lymph node measuring 6.9 mm short axis. US/US scrotum [id number] IMPRESSION: Improved right epididymal enlargement, persistent right epididymal color Doppler hyperemia. Mild nonspecific bilateral scrotal wall thickening, interval increase. Mild bilateral testicular microlithiasis.
== END 2021-05-01 16:24 | disposition home or self-care (01) ==
PROVIDERS: PCP Family Medicine Adult Medicine; Visit Provider Nurse Practitioner Family
DX: N45.1 Epididymitis (principal)
CPT/HCPCS: 76870

== ENCOUNTER → 2021-06-21 14:31 | Outpatient (BNVA) | payer OTHER, SELFPAY | PROVIDERS: PCP Family Medicine Adult Medicine; Visit Provider Nurse Practitioner Family | DX: Z20.822 Contact with and (suspected) exposure to COVID-19 (principal) | CPT/HCPCS: 87635 ==

== ENCOUNTER → 2021-06-30 12:30 | Outpatient (BNVA) | payer OTHER, SELFPAY | PROVIDERS: PCP Family Medicine Adult Medicine; Visit Provider Urology | DX: N18.4 Chronic kidney disease, stage 4 (severe) (principal); N45.1 Epididymitis; N50.82 Scrotal pain | CPT/HCPCS: 81003; 87635 ==

== ENCOUNTER → 2021-08-16 15:59 | Outpatient (BNVA) | payer SELFPAY | PROVIDERS: PCP Family Medicine Adult Medicine; Visit Provider Urology | DX: N50.82 Scrotal pain (principal); N45.1 Epididymitis; N50.89 Other specified disorders of the male genital organs; N50.819 Testicular pain, unspecified; R68.82 Decreased libido; N52.9 Male erectile dysfunction, unspecified | CPT/HCPCS: 81003 ==

== ENCOUNTER → 2021-08-21 11:28 | Outpatient (BNVA) | payer SELFPAY | PROVIDERS: PCP Family Medicine Adult Medicine; Visit Provider Urology | DX: N52.9 Male erectile dysfunction, unspecified (principal); N50.819 Testicular pain, unspecified | CPT/HCPCS: 84403; 87635 ==

== ENCOUNTER 2021-08-24 10:47 | Day surgery (SDC) | payer SELFPAY ==
[2021-08-23 13:39] VITALS: BMI 33.5
[2021-08-24 11:18] VITALS: BP 140/89; PULSE 88; RESP 18; TEMP 36.2; O2SAT 100
[2021-08-24] MEDS: sodium chloride 0.9% 1,000 ML 30 ML IV (11:57)
--- NOTE | 2021-08-24 12:18 | ANES.PREANE2 ---
Pre-Anesthetic Assessment Pre-Anesthetic Assessment: Height/Weight: Height 1.93 m Weight 124.738 kg Temp Pulse Resp BP Pulse Ox 97.1 F L 88 18 140/89 100 08/24/21 11:18 08/24/21 11:18 08/24/21 11:18 08/24/21 11:18 08/24/21 11:18 Preop Diagnosis: Chronic right scrotal/testicular/epididymal pain Proposed Procedure: Operation Date: 08/24/21 13:00 Proposed Procedures p Right Scrotal Orchiectomy 63695 N45.1(Right) - Arthur Ribeiro MD Was Beta Nithin taken within 24 hours: Yes Was Clonidine taken within 24 hours: Yes Last intake: Intake Last Liquid Date 08/23/21 Last Liquid Time 20:00 Last Solid Date 08/23/21 Last Solid Time 20:00 Social: Social History: No alcohol and No tobacco Exam: Pre-Anes Outpt Exam: alert, oriented x 3, clear to auscultation bilaterally and regular rate & rhythm Airway: Submandibular: WNL Cervical ROM: WNL MP: 2 Dentition: Full CV/HEM: CV/HEM: HTN and [place] Metabolic: Metabolic: Hyperlipidemia and Morbid obesity Musc/skel: Musc/skel: Lower Back Pain Anesthetic Plan: ASA status: 3 Anesthesia: General Risk of > 500 ml blood loss (7ml/kg in children): No Meds/Allergies Current Medications: Current Medications Generic Name Dose Route Start Last Admin Trade Name Freq PRN Reason Stop Dose Admin Sodium Chloride 1,000 mls @ 30 ml s/hr 08/24/21 11:15 08/24/21 11:57 Sodium Chloride 0.9% IV 08/25/21 11:14 30 mls/hr .Q24H MAKENZIE Administration PFSH Anesthesia PFSH: Medical History (Updated 08/17/21 @ 07:16 by Gonzalo Duarte MD) CKD (chronic kidney disease) stage 4, GFR 15-29 ml/min Close exposure to COVID-19 virus Decreased libido Encounter for wellness examination in adult Epididymal thickening Erectile dysfunction History of methamphetamine use -UDS positive for methamphetamines; denies use; previously positive -could be contributing to hypertensive emergency Hypertension Hypertensive emergency Hypertriglyceridemia LVH (left ventricular hypertrophy) Obesity (BMI 30.0-34.9) Persistent testicular pain Family History Other CAD (coronary artery disease) Diabetes Hypertension Social History Alcohol intake: current Alcohol intake frequency: holidays/special occasions only Marital status: Single Current occupational status: unemployed Data Anesthesia Cardiac Studies: No Data to Display
--- NOTE | 2021-08-24 12:33 | P.HPUD_ITS ---
Surgery/Procedure H&P Update DATE OF PROCEDURE: August 24, 2021 DATE H&P PERFORMED: 06/30/21 H&P UPDATE INFORMATION: I have reviewed H&P completed within last 30 days, I have examined patient prior to procedure, No changes to prior documentation and H&P is in [facility] EMR on date indicated PREOP DIAGNOSIS: Chronic right scrotal/testicular/epididymal pain PLANNED PROCEDURE: Operation Date: 08/24/21 13:00 Proposed Procedures p Right Scrotal Orchiectomy 94130 N45.1(Right) - Arthur Ribeiro MD
[2021-08-24] MEDS: HYDROmorphone 1 mg/mL INJ 1 mL 0.5 MG IVP (12:39)
[2021-08-24] MEDS: levofloxacin-dextrose 5 % 500 MG/100 ML PREMIX 100 MG IV (15:52)
--- NOTE | 2021-08-24 16:45 | P.OP_ITS ---
Operative Report Date of procedure: August 24, 2021 Pre-op Diagnosis: Chronic right scrotal/testicular/epididymal pain Post-op diagnosis: same Procedure Done: 1. Right scrotal orchiectomy Pathology: Right testicle And partial spermatic cord Surgeon: Quintin Anesthesia: General Estimated blood loss: Less than 10 cc Urine output: Not measured Complications: None Findings: 1. Marked induration of the right epididymis extending onto the vas deferens into the inguinal canal. 2. Testicle appeared grossly normal Condition: stable Disposition: PACU Brief History: Nicholas is a 41-year-old white male with history of chronic testic ular pain right greater than sign left. Physical exam on multiple occasions showed a very indurated right epididymis and extension of that induration all the way into the inguinal canal with what appeared to be grossly abnormal vas deferens. He had some of the same changes on the left side but not to the degree and his pain was primarily on the right. He described his pain is debilitating. Multiple courses of antibiotics failed to have any significant long-term benefit. He was not able to work when the pain was bad. Ultimately he elected to proceed with orchiectomy after failure of multiple conservative courses. Procedure: After routine preoperative evaluation examination and obtaining of informed consent he was taken to the operating suite on 08/24/2021 where general anesthesia was administered without difficulty after appropriate timeout was performed, SCDs confirmed to be functioning, preoperative antibiotics administered, beta-luiz protocol confirmed. Prepped and draped in usual sterile fashion in supine position paying careful attention to avoiding pressure points. A median raphae incision was made over the right testicle taken down through the skin and subcutaneous tissue into the tunica vaginalis and the testicle was swept free from the right hemiscrotum. The cord was bluntly and sharply dissected down to the vasculature which was taken in tube packets clamped and doubly divided. The vas deferens vascularity was dissected off of as clamped ligated and divided. The vas deferens was ligated loosely for the adventitial vessels only and then divided with electrocautery. Hemostasis was excellent. The wound was copiously irrigated. Testicle and partial spermatic cord was sent for pathologic evaluation. Skin was infiltrated with 0.5% bupivacaine. Wound was closed with 2 layers first with a 3-0 Vicryl for the dartos layer and then 4-0 Vicryl for subcuticular closure with Dermabond applied on top Sterile dressing was applied scrotal supports applied and the procedure was completed. He tolerated procedure well without complications and was awakened in the operating room and returned to the recovery room in stable condition. PLANS: 1. Anticipate discharge from outpatient surgery 2. Follow-up in 1 month for postop check
[2021-08-24 16:55] VITALS: BP 138/101; PULSE 71; RESP 14; TEMP 36.5; O2SAT 100
[2021-08-24 17:00] VITALS: BP 154/96; PULSE 70; RESP 15; O2SAT 99
[2021-08-24 17:05] VITALS: BP 136/84; PULSE 82; RESP 17; TEMP 36.6; O2SAT 99
[2021-08-24 17:20] VITALS: BP 142/97; PULSE 86; RESP 18; TEMP 36.1; O2SAT 100
[2021-08-24 18:03] VITALS: BP 124/81; PULSE 73; RESP 18; O2SAT 95
--- NOTE | 2021-08-24 19:17 | ANE.PACU2 ---
Inpatient post-anesthesia follow up: Airway intact: Yes Vital signs: Temperature 97 F Pulse Rate 73 Respiratory Rate 18 Blood Pressure 124/81 Pulse Oximetry 95 Oxygen Delivery Me thod Room Air Oxygen Flow Rate Fraction of Inspir ed Oxygen Hydration adequate: Yes Nausea and vomiting: No Pain level: 2 Mental status: Baseline
== END 2021-08-24 17:45 | disposition home or self-care (01) ==
PROVIDERS: PCP Family Medicine Adult Medicine; Visit Provider Urology
PROC: (CPT 54520; principal; 2021-08-24 13:00)
DX: N50.82 Scrotal pain (principal); N50.811 Right testicular pain; I25.2 Old myocardial infarction; E78.5 Hyperlipidemia, unspecified; E66.01 Morbid (severe) obesity due to excess calories; Z68.33 Body mass index [BMI] 33.0-33.9, adult; I12.9 Hypertensive chronic kidney disease with stage 1 through stage 4 chronic kidney disease, or unspecified chronic kidney disease; N18.4 Chronic kidney disease, stage 4 (severe); Z82.49 Family history of ischemic heart disease and other diseases of the circulatory system; Z83.3 Family history of diabetes mellitus
CPT/HCPCS: 54520; 88304; 96374; J1100; J1170; J1956; J2405; J2704; J3010; J3490; J7030

== ENCOUNTER → 2021-08-28 10:58 | Outpatient (BNVA) | payer SELFPAY | PROVIDERS: PCP Family Medicine Adult Medicine; Visit Provider Family Medicine Adult Medicine | DX: N18.4 Chronic kidney disease, stage 4 (severe) (principal); G89.29 Other chronic pain; M79.604 Pain in right leg; I10 Essential (primary) hypertension; M54.9 Dorsalgia, unspecified; E78.1 Pure hyperglyceridemia; N18.30 Chronic kidney disease, stage 3 unspecified | CPT/HCPCS: 80053; 84550; 85025; 86140 ==

== ENCOUNTER 2021-08-31 13:11 | Outpatient (CLI) | payer SELFPAY ==
--- NOTE | 2021-08-31 13:30 | XR_ITS ---
WS: [id number] LUMBAR SPINE TECHNIQUE: 5 views of the lumbar spine CLINICAL INFORMATION: chronic right dermatone pain COMPARISON: None. FINDINGS: Five [id number] lumbar vertebral bodies. Mild lumbar curve convex left. Disc space narrowing wor se L4-5 with endplate sclerosis. Anterior hypertrophic changes L4-5. Mild facet arthropathy L5-S1. XR/XR lumbar spine min 4V [id number] IMPRESSION: 1. Mild lumbar curve convex left. 2. Disc space narrowing worse L4-5 with endplate sclerosis. 3. Mild facet arthropathy L5-S1. 4. No acute compression fractures.
== END 2021-08-31 13:12 | disposition home or self-care (01) ==
PROVIDERS: PCP Family Medicine Adult Medicine; Visit Provider Family Medicine Adult Medicine
DX: M79.604 Pain in right leg (principal); G89.29 Other chronic pain; M47.817 Spondylosis without myelopathy or radiculopathy, lumbosacral region
CPT/HCPCS: 72110

== ENCOUNTER 2021-10-15 07:15 | Emergency (ER) | payer SELFPAY ==
[2021-10-15 07:23] VITALS: BP 161/129; PULSE 149; RESP 20; O2SAT 98; BMI 32.8
--- NOTE | 2021-10-15 07:30 | ECG_ITS ---
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 [id number] [email or web address]
--- NOTE | 2021-10-15 07:30 | W.ED.GENADLT ---
HPI - General Adult General: Chief complaint: General Medical Stated complaint: N/V Time Seen by Provider: 10/15/21 07:29 History of Present Illness: HPI narrative: Mr. Woody is a 41-year-old gentleman with complex history including hypertension, hyperlipidemia, CKD, and history of NSTEMI resulting in heart failure with mildly reduced ejection fraction who presents to the emergency department due to nausea vomiting. He has been out of his antihypertensives the past few days though typically reports compliance with this. He started a new medication, though is unsure of what 1 exactly yesterday and went out and had a few drinks. This morning he woke up with one episode of nonbilious and nonbloody emesis and a odd feeling in his stomach. He does not describe this as pain. Overall the course of symptoms has persisted. Intensity is moderate. Denies chest pain, shortness of breath, or other infectious symptoms. No other specific exacerbating or alleviating factors identified. Review of Systems General: Reports: 10 or more systems reviewed and unremarkable except in HPI and below PFSH ED PFSH: Medical History Chronic pain of right lower extremity CKD (chronic kidney disease) stage 3, GFR 30-59 ml/min Close exposure to COVID-19 virus Decreased libido Encounter for wellness examination in adult Epididymal thickening Erectile dysfunction History of methamphetamine use -UDS positive for methamphetamines; denies use; previously positive -could be contributing to hypertensive emergency Hypertension Hypertensive emergency Hypertriglyceridemia LVH (left ventricular hypertrophy) Obesity (BMI 30.0-34.9) Persistent testicular pain Family History Other CAD (coronary artery disease) Diabetes Hypertension Social History Alcohol intake: current Alcohol intake frequency: holidays/special occasions only Marital status: Single Current occupational status: unemployed Physical Exam Narrative: EXAM NARRATIVE: GENERAL/CONSTITUTIONAL -mildly ill-appearing. Uncomfortable Eyes - PERRL, no conjunctival injection ENMT - Atraumatic external nose and ears. Moist mucous membranes NECK - supple. trachea midline CARDIOVASCULAR - tachycardic rate and regular rhythm. Normal peripheral perfusion RESPIRATORY - clear to auscultation bilaterally. Tachypnea. ABDOMEN/GI - minimally tender in the periumbilical to upper abdomen. Nondistended. No tenderness to percussion or evidence of peritonitis MSK - Extremities without obvious deformity or tenderness to palpation SKIN - Warm, Dry NEURO - alert and appropriately oriented. Moves all extremities equally. Course ED course: - Patient was seen and evaluated by me at bedside - Patient placed on cardiac monitors, IV access obtained - Initial evaluation notable for tachycardia, mildly ill appearance -Symptom treatment ordered - Labs notable for hemoconcentration compared to prior which likely explains leukocytosis. Metabolic panel with evidence of dehydration, creatinine is elevated though only mildly worse than recent prior. Delta troponin negative. - Imaging notable for no acute finding on chest x-ray - Upon serial reexamination after treatment the patient was mildly improved. He required multiple redoses of medications which he has not been having at home for heart rate control - Based on patient history, evaluation, labs, and imaging as interpreted the most likely cause of the patient's condition is tachycardia secondary to alcohol consumption, patient does not have a history of frequent similar, in the context of medication noncompliance - The results of ED evaluation were discussed with the patient including prescriptions and/or symptomatic cares (if applicable) including appropriate and responsible use, followup plan, and return precautions. The patient verbalized understanding and felt safe for discharge. - Patient discharged in satisfactory condition. Vital Signs: Vital signs: Vital Signs Pulse Rate 99 10/15/21 12:37 Respiratory Rate 18 10/15/21 12:37 Blood Pressure 165/107 10/15/21 12:37 Pulse Oximetry 95 10/15/21 12:37 MDM - General Adult Medical Records: Attestation: I reviewed the patient's medical records. Lab Data: Attestation: I reviewed the patient's lab results. Labs: Lab Results 10/15/21 10/15/21 10/15/21 07:40 07:40 07:40 WBC 13.0 10^3/uL H 10 ^3/uL (4.0-10.0) RBC 6.05 10^6/uL H 10 ^6/uL (4.1-5.3) Hgb 16.9 g/dL H g/dL (11.7-16.6) Hct 50.2 % % (42.0-52.0) MCV 83.0 fl fl (80-94) MCH 27.9 pg L pg (28.0-34.0) MCHC 33.7 g/dL g/dL (30.0-36.0) RDW 13.3 % % (12.1-15.1) Plt Count 296 10^3/cmm 10^3 /cmm (130-400) MPV 9.8 fL fL (7.4-10.4) Neut % (Auto) 68.6 % % Lymph % (Auto) 21.7 % % [place] % (Auto) 8.0 % % Eos % (Auto) 0.4 % % Baso % (Auto) 0.8 % % Neut # (Auto) 8.94 10^3/uL H 10 ^3/uL (1.8-7.7) Lymph # (Auto) 2.8 10^3/uL 10^3/ uL (0.8-4.8) Cascade # (Auto) 1.0 10^3/uL H 10^ 3/uL (0.2-0.9) Eos # (Auto) 0.1 10^3/uL 10^3/ uL (0.0-0.8) Baso # (Auto) 0.1 10^3/uL 10^3/ uL (0.0-0.1) Nucleated RBC % (a uto) 0 % % Nucleated RBCs # 0.0 /100WBC /100W BC Sodium 136 mmol/L mmol/L (136-145) Potassium 3.9 mmol/L mmol/L (3.5-5.1) Chloride 95 mmol/L L mmol/ L (98-107) Carbon Dioxide 22 mmol/L mmol/L (22-29) Anion Gap 22.9 H (5-19) BUN 19 mg/dL mg/dL (6-20) Creatinine 2.5 mg/dL H mg/dL (0.7-1.2) GFR Calculation 34.6 mL/min L mL/ min (90-130) Glucose 121 mg/dL H mg/dL (65-115) Calculated Osmolal ity 286 mOsm/kg mOsm/ kg (285-295) Calcium 9.3 mg/dL mg/dL (8.5-10.5) Magnesium 1.6 mg/dL L mg/dL (1.7-2.3) Troponin T Baselin e 98 ng/L H ng/L (0-15) Troponin T 120 Min [place] Delta Troponin T TSH 1.43 uIU/mL uIU/m L (0.27-4.20) 10/15/21 09:45 WBC RBC Hgb Hct MCV MCH MCHC RDW Plt Count MPV Neut % (Auto) Lymph % (Auto) Cascade % (Auto) Eos % (Auto) Baso % (Auto) Neut # (Auto) Lymph # (Auto) [place] # (Auto) Eos # (Auto) Baso # (Auto) Nucleated RBC % (a uto) Nucleated RBCs # Sodium Potassium Chloride Carbon Dioxide Anion Gap BUN Creatinine GFR Calculation Glucose Calculated Osmolal ity Calcium Magnesium Troponin T Baselin e Troponin T 120 Min [place] 89.29 ng/L H ng/L (0-15) Delta Troponin T -8.71 ABS# L ABS# (0-10) TSH EKG Data^: EKG 1: Attestation: I personally reviewed and interpreted this EKG as follows: EKG interpretation date: 10/15/21 EKG interpretation time: 07:47 Interpretation: Twelve-lead EKG shows a regular rhythm at a rate of 137. AK interval 132, QRS duration 96, QTc 377. Left axis deviation. Interpretation: Sinus tachycardia. ST segment abnormalities Computer generated interpretation: Chest X-Ray 10/15/21 07:37 IMPRESSION: No acute findings. EKG 2: Attestation: I personally reviewed and interpreted this EKG as follows: EKG interpretation date: 10/15/21 EKG interpretation time: 09:56 Interpretation: Twelve-lead EKG shows a regular rhythm at a rate of 99. AK interval 142, QRS duration 90, QTc 421. Normal axis. Interpretation: Sinus rhythm. Nonspecific ST segment abnormalities Computer generated interpretation: Chest X-Ray 10/15/21 07:37 IMPRESSION: No acute findings. Discharge Plan Discharge Patient Disposition: Home Clinical Impression: Hypertension, Tachycardia, Alcohol use, CKD (chronic kidney disease), Nausea and vomiting Condition: Stable Prescriptions: No Action amlodipine 10 mg tablet 10 mg PO DAILY Qty: 30 RF: 5 clonidine HCl 0.1 mg tablet 0.2 mg PO TID Qty: 180 RF: 5 hydrochlorothiazide 25 mg tablet 25 mg PO DAILY Qty: 30 RF: 5 lisinopril 20 mg tablet 20 mg PO DAILY 30 Days Qty: 30 RF: 5 metoprolol tartrate 50 mg tablet 50 mg PO BID Qty: 60 RF: 5 tadalafil 20 mg tablet 20 mg PO DAILY PRN (Reason: sexual activity) Qty: 20 RF: 12 atorvastatin 40 mg tablet 40 mg PO DAILY Qty: 30 RF: 5 Discharge Orders: Discharge ED (Routine); Ordered 10/15/21 Ordered By: Jarett Rollins Referrals: Gonzalo Duarte MD [Primary Care Provider] - Discharge Diet: Usual diet Discharge Activity: Increase activity as tolerated Patient Instructions: Dehydration (ED), Chronic Hypertension (ED), Tachycardia (ED) Activity Restrictions/Additional Instructions: Thank you for visiting the emergency department. You were seen and evaluated for nausea, vomiting, and abdominal symptoms. You were found to have a high heart rate and high blood pressure. This improved with treatment. I believe that this is likely related to a combination of drinking last night, missing doses of medication, and dehydration. Please ensure that you stay hydrated however follow all instructions given by your animal anatomy teacher. Return to the emergency department for worsening symptoms or anything else that you are concerned about and feel needs emergency department evaluation. Please ensure that you are taking your medications as prescribed. Coding Level of Care Code ED System Administration Manager for Mateusz Estevez
--- NOTE | 2021-10-15 07:37 | XRR_ITS ---
PROCEDURE INFORMATION: Exam: XR Chest Exam date and time: 10/15/2021 7:37 AM Age: 41 years old Clinical indication: Other: N/v; Additional info: Tachycardia, ? volume overload TECHNIQUE: Imaging protocol: XR of the chest. Views: 1 view. Total images: 1 COMPARISON: CR XR chest 2V* [id number] 10/14/2020 2:54 PM FINDINGS: Lungs: Unremarkable. No consolidation. Pleural spaces: Unremarkable. No pleural effusion. No pneumothorax. Heart/Mediastinum: Unremarkable. No cardiomegaly. Bones/joints: Unremarkable. XR/XR chest 1V portable [id number] IMPRESSION: No acute findings.
[2021-10-15 07:45] VITALS: BP 184/120; PULSE 141; RESP 18; O2SAT 98
[2021-10-15] MEDS: sodium chloride 0.9% 500 ML 999 ML IV ×2 (07:51→09:42)
[2021-10-15] MEDS: ondansetron 2 mg/ML SDV 2 mL 4 MG IVP (07:53)
[2021-10-15 08:27] LABS: Basophils # 0.1 10^3/uL (0.0-0.1); Basophils % 0.8 %; Eosinophils # 0.1 10^3/uL (0.0-0.8); Eosinophils % 0.4 %; Hematocrit 50.2 % (42.0-52.0); Hemoglobin 16.9 g/dL (11.7-16.6); Lymphocytes # 2.8 10^3/uL (0.8-4.8); Lymphocytes % 21.7 %; Mean Corpuscular HGB Conc 33.7 g/dL (30.0-36.0); Mean Corpuscular Hemoglobin 27.9 pg (28.0-34.0); Mean Platelet Volume 9.8 fL (7.4-10.4); Neutrophils # 8.94 10^3/uL (1.8-7.7); Neutrophils % 68.6 %; Nucleated Red Blood Cells % 0 %; Platelet Count 296 10^3/cmm (130-400); Red Blood Count 6.05 10^6/uL (4.1-5.3); Red Cell Distribution Width 13.3 % (12.1-15.1)
[2021-10-15 08:40] LABS: Troponin(5th) Baseline 98 ng/L (0-15)
[2021-10-15] MEDS: labetalol 5 mg/mL SDV 20mL 20 MG IVP (08:44)
[2021-10-15 08:47] LABS: Blood Urea Nitrogen 19 mg/dL (6-20); Calcium 9.3 mg/dL (8.5-10.5); Carbon Dioxide 22 mmol/L (22-29); Chloride 95 mmol/L (98-107); Glomerular Filtration Rate 34.6 mL/min (90-130); Glucose 121 mg/dL (65-115); Magnesium 1.6 mg/dL (1.7-2.3); Osmolality Calculated 286 mOsm/kg (285-295); Sodium 136 mmol/L (136-145); Thyroid Stimulating Hormone 1.43 uIU/mL (0.27-4.20)
[2021-10-15 08:48] LABS: Anion Gap 22.9 (5-19); Potassium 3.9 mmol/L (3.5-5.1)
[2021-10-15] MEDS: lisinopril 10 mg Tablet 20 MG PO (09:41)
[2021-10-15] MEDS: magnesium sulfate premix 2 GM/50 ML PIGGYBACK IV (09:42)
--- NOTE | 2021-10-15 09:48 | ECG_ITS ---
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 Measurements Intervals [place] Rate: 99 P: 50 ND: 142 QRS: -1 QRSD: 90 T: 138 QT: 365 QTc: 470 Interpretive Statements SINUS RHYTHM NONSPECIFIC ST & T-WAVE ABNORMALITY INTERPRETATION BASED ON A DEFAULT AGE OF 40 YEARS Compared to ECG 10/15/2021 07:43:58 Sinus tachycardia no longer present Possible ischemia no longer present T-wave abnormality still present Electronically Signed On 10-15-2021 20:22:33 PULMONARY CARE NURSE by Bharati Lambert M.D. [id number] f
[2021-10-15 09:54] VITALS: BP 156/106; PULSE 104; RESP 14; O2SAT 98
[2021-10-15 10:20] LABS: Troponin 5 2HR 89.29 ng/L (0-15)
[2021-10-15 10:25] LABS: Troponin 5 2HR Delta -8.71 ABS# (0-10)
[2021-10-15] MEDS: metoprolol tartrate 1 mg/1 mL SDV 5 mL 2.5 MG IVP (11:00)
[2021-10-15] MEDS: metoprolol tartrate 25 mg Tablet 12.5 MG PO (11:03)
--- NOTE | 2021-10-15 11:11 | PC.NURSE ---
REPORT GIVEN TO ASTRID PABON ASSUMED CARE.
[2021-10-15 12:00] VITALS: BP 159/114; PULSE 106; RESP 18; O2SAT 97
[2021-10-15] MEDS: metoprolol tartrate 1 mg/1 mL SDV 5 mL 5 MG IVP (12:04)
[2021-10-15 12:08] VITALS: O2SAT 97
--- NOTE | 2021-10-15 12:09 | PC.NURSE ---
Received report from CM White Pt need medication IV and the discharge. Pt in room no headache/dizziness/ASX from high blood pressure. Pt stated had taken medication for Hypertension.
--- NOTE | 2021-10-15 12:13 | PC.NURSE ---
Metropolol BP 159/114 HR 106 after 1mg 150/104 HR 103, total 2.5 mg given BP 159/105 total of 4mg given HR 99 BP 158/114, continues to be ASX with Hypertension.
[2021-10-15 12:37] VITALS: BP 165/107; PULSE 99; RESP 18; O2SAT 95
== END 2021-10-15 12:38 | disposition home or self-care (01) ==
PROVIDERS: Emergency Provider Emergency Medicine; PCP Family Medicine Adult Medicine
DX: R11.2 Nausea with vomiting, unspecified (principal); I10 Essential (primary) hypertension; R00.0 Tachycardia, unspecified; Z72.89 Other problems related to lifestyle; I12.9 Hypertensive chronic kidney disease with stage 1 through stage 4 chronic kidney disease, or unspecified chronic kidney disease; N18.30 Chronic kidney disease, stage 3 unspecified
CPT/HCPCS: 36415; 71045; 80048; 83735; 84443; 84484; 85025; 93005; 96365; 96375; 99284; J2405; J3475; J3490; J7040

== ENCOUNTER → 2021-12-20 14:11 | Outpatient (BNVA) | payer SELFPAY | PROVIDERS: PCP Family Medicine Adult Medicine; Visit Provider Urology | DX: N18.30 Chronic kidney disease, stage 3 unspecified (principal); N52.9 Male erectile dysfunction, unspecified; R10.31 Right lower quadrant pain; G89.29 Other chronic pain | CPT/HCPCS: 81003 ==

== ENCOUNTER 2022-06-04 10:59 | Emergency (ER) | payer SELFPAY ==
[2022-06-04] VITALS (8 sets, daily range): BP systolic 116–128; BP diastolic 70–88; PULSE 62–74; RESP 12–18; TEMP 36.9; O2SAT 93–99; BMI 32.8
--- NOTE | 2022-06-04 11:04 | XR_ITS ---
WS: [id number] PORTABLE CHEST HISTORY: chest pain COMPARISON: 10/15/2021 Lungs are clear and well expanded. No pleural effusion or pneumothorax. Cardiac size: Normal. Mediastinum/Aorta: Normal mediastinum. No osseous abnormality seen. XR/XR chest 1V portable [id number] IMPRESSION: Unremarkable portable chest.
--- NOTE | 2022-06-04 11:06 | ECG_ITS ---
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 Measurements Intervals [place] Rate: 70 P: 64 MA: 150 QRS: 19 QRSD: 110 T: 60 QT: 356 QTc: 385 Interpretive Statements SINUS RHYTHM NONSPECIFIC T-WAVE ABNORMALITY INTERPRETATION BASED ON A DEFAULT AGE OF 40 YEARS Compared to ECG 10/15/2021 09:53:31 No significant changes Electronically Signed On 06-05-2022 7:04:04 CDT by Geo Dupree M.D. [id number] f
[2022-06-04 11:42] LABS: Basophils # 0.1 10^3/uL (0.0-0.1); Basophils % 1.2 %; Eosinophils # 0.3 10^3/uL (0.0-0.8); Eosinophils % 4.5 %; Hematocrit 45.1 % (42.0-52.0); Hemoglobin 14.7 g/dL (11.7-16.6); Lymphocytes # 2.8 10^3/uL (0.8-4.8); Lymphocytes % 40.6 %; Mean Corpuscular HGB Conc 32.6 g/dL (30.0-36.0); Mean Corpuscular Hemoglobin 27.5 pg (28.0-34.0); Mean Corpuscular Volume 84.5 fl (80-94); Mean Platelet Volume 10.2 fL (7.4-10.4); Monocytes # 0.5 10^3/uL (0.2-0.9); Monocytes % 7.2 %; Neutrophils # 3.17 10^3/uL (1.8-7.7); Neutrophils % 46.4 %; Nucleated Red Blood Cells % 0 %; Platelet Count 208 10^3/cmm (130-400); Red Blood Count 5.34 10^6/uL (4.1-5.3); Red Cell Distribution Width 14.5 % (12.1-15.1); White Blood Count 6.8 10^3/uL (4.0-10.0)
[2022-06-04 12:36] LABS: Troponin(5th) Baseline 16 ng/L (0-15)
--- NOTE | 2022-06-04 12:55 | ED_ITS ---
HPI - Chest Pain General: Chief Complaint: Chest Pain Stated Complaint: Chest pain Time Seen by Provider: 06/04/22 11:22 Source: patient Mode of arrival: ambulatory History of Present Illness: 42-year-old male comes in the emergency room complaining of intermittent chest pain for the last 10 days. He has early MELANIE exacerbates or relieves it. He states that it feels like he should get some relief by stretching and moving his arm which he does but does not really seem to relieve anything. The only correlation note that he has noticed between chest pain is with deep inspiration and expiration and increase the pain particularly expiration. He has no known history of diabetes he does smoke he is a father who had relatively early heart disease in his mid to early 50s. He denies any hemoptysis denies any shortness of breath or cough. He has had increased dizziness and headache. Denies fever sweats or chills. MD complaint: chest heaviness and chest discomfort Onset (ago): day(s) (10) Timing of current episode: episodic PFSH ED PFSH: Medical History (Updated 06/04/22 @ 15:12 by Miguel Sanchez DO) Bilateral hearing loss due to cerumen impaction Chronic lumbar pain Chronic pain of right lower extremity CKD (chronic kidney disease) stage 3, GFR 30-59 ml/min Disc narrowing Erectile dysfunction History of methamphetamine use -UDS positive for methamphetamines; denies use; previously positive -could be contributing to hypertensive emergency Hypertension Hypertriglyceridemia LVH (left ventricular hypertrophy) Obesity (BMI 30.0-34.9) Family History Other CAD (coronary artery disease) Diabetes Hypertension Social History Smoking and tobacco status: current every day smoker cigarettes Alcohol intake: current Alcohol intake frequency: holidays/special occasions only Marital status: Single Current occupational status: unemployed Course Vital Signs: Vital signs: Vital Signs Temperature 98.5 F 06/04/22 11:07 Pulse Rate 64 06/04/22 15:06 Respiratory Rate 13 06/04/22 12:46 Blood Pressure 122/76 06/04/22 15:06 Pulse Oximetry 93 06/04/22 15:06 Oxygen Delivery Me thod 06/04/22 15:06 MDM - Chest Pain Medical Decision Making Labs imaging and EKG reviewed.EKG does not show anything acute chest x-ray normal. Patient's pain seems very atypical has had it for 10 days he does not have any change in his troponins. He does have some risk factors though he is a smoker age male hypertension. With stop his hydrochlorothiazide and decrease his amlodipine to 5 add isosorbide mononitrate. He in the past he has been taking Cialis Cialis but he stopped that quite some time ago. Also asked him to take a baby aspirin daily while follow-up with his primary care doctor within a week and set up an outpatient Lexiscan sestamibi stress test. Medical Records I reviewed the patient's medical records. Lab Data I reviewed the patient's lab results. : 06/04/22 11:22 Radiology Impressions Chest X-Ray 06/04/22 11:04 IMPRESSION: Unremarkable portable chest. Laboratory Results WBC 6.8 10^3/uL (4.0-10.0) 06/04/22 11:22 RBC 5.34 10^6/uL (4.1-5.3) H 06/04/22 11:22 Hgb 14.7 g/dL (11.7-16.6) 06/04/22 11:22 Hct 45.1 % (42.0-52.0) 06/04/22 11:22 MCV 84.5 fl (80-94) 06/04/22 11:22 MCH 27.5 pg (28.0-34.0) L 06/04/22 11:22 MCHC 32.6 g/dL (30.0-36.0) 06/04/22 11:22 RDW 14.5 % (12.1-15.1) 06/04/22 11:22 Plt Count 208 10^3/cmm (130-400) 06/04/22 11:22 MPV 10.2 fL (7.4-10.4) 06/04/22 11:22 Neut % (Auto) 46.4 % 06/04/22 11:22 Lymph % (Auto) 40.6 % 06/04/22 11:22 [place] % (Auto) 7.2 % 06/04/22 11:22 Eos % (Auto) 4.5 % 06/04/22 11:22 Baso % (Auto) 1.2 % 06/04/22 11:22 Neut # (Auto) 3.17 10^3/uL (1.8-7.7) 06/04/22 11:22 Lymph # (Auto) 2.8 10^3/uL (0.8-4.8) 06/04/22 11:22 [place] # (Auto) 0.5 10^3/uL (0.2-0.9) 06/04/22 11:22 Eos # (Auto) 0.3 10^3/uL (0.0-0.8) 06/04/22 11:22 Baso # (Auto) 0.1 10^3/uL (0.0-0.1) 06/04/22 11:22 Nucleated RBC % (auto) 0 % 06/04/22 11:22 Nucleated RBCs # 0.0 /100WBC 06/04/22 11:22 Troponin T Baseline 16 ng/L (0-15) H 06/04/22 11:22 Troponin T 120 Minute 12.51 ng/L (0-15) 06/04/22 13:21 Delta Troponin T -3.49 ABS# (0-10) L 06/04/22 13:21 Discharge Plan Discharge Patient Disposition: Home Clinical Impression: Atypical chest pain, Hypertension Condition: Stable Prescriptions: New isosorbide mononitrate 30 mg tablet extended release 24 hr 30 mg PO DAILY Qty: 30 0RF Changed amlodipine 10 mg tablet 5 mg PO QAM Qty: 30 0RF Discontinued hydrochlorothiazide 25 mg tablet 25 mg PO QAM No Action tadalafil 20 mg tablet 20 mg PO DAILY PRN (Reason: sexual activity) Qty: 20 12RF Rx Instructions: administer approximately 30min before sexual activity; NO NITROGLYCERIN! clonidine HCl 0.1 mg tablet 0.2 mg PO TID Qty: 180 5RF Aspir-81 81 mg Tablet,Delayed Release (Dr/Ec) 162 mg PO .ONCE atorvastatin 40 mg tablet 40 mg PO QAM lisinopril 20 mg tablet 20 mg PO QAM metoprolol tartrate 50 mg tablet 50 mg PO BID@06,12 Discharge Orders: Discharge ED (Routine); Ordered 06/04/22 Ordered By: Miguel Sanchez Referrals: Gonzalo Duarte MD [Primary Care Provider] - Discharge Diet: Usual diet Discharge Activity: Limit activity as instructed Patient Instructions: Opioid Safety Activity Restrictions/Additional Instructions: Avoid exertional activity. Follow-up with your doctor with your primary care physician within a week. Case management will follow up with you to set up an outpatient sestamibi stress test Stand Alone Forms: Work/School Release Coding Level of Care Code ED Cloth Bleaching Range Tender for Mateusz Estevez
[2022-06-04] MEDS: aspirin 81 mg Chew Tablet 324 MG PO (13:05)
--- NOTE | 2022-06-04 13:05 | ECG_ITS ---
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 Measurements Intervals [place] Rate: 57 P: 55 PA: 163 QRS: 31 QRSD: 100 T: 51 QT: 383 QTc: 375 Interpretive Statements SINUS BRADYCARDIA NONSPECIFIC T-WAVE ABNORMALITY Compared to ECG 10/15/2021 09:53:31 Sinus rhythm no longer present T-wave abnormality still present Electronically Signed On 06-05-2022 21:20:34 CDT by Bharati Lambert M.D. [id number]
[2022-06-04 14:48] LABS: Troponin 5 2HR 12.51 ng/L (0-15)
[2022-06-04 15:07] LABS: Troponin 5 2HR Delta -3.49 ABS# (0-10)
== END 2022-06-04 15:20 | disposition home or self-care (01) ==
PROVIDERS: Emergency Medicine; Emergency Provider Family Medicine; PCP Family Medicine Adult Medicine
DX: R07.89 Other chest pain (principal); I12.9 Hypertensive chronic kidney disease with stage 1 through stage 4 chronic kidney disease, or unspecified chronic kidney disease; N18.30 Chronic kidney disease, stage 3 unspecified; F17.210 Nicotine dependence, cigarettes, uncomplicated; Z79.82 Long term (current) use of aspirin
CPT/HCPCS: 71045; 84484; 85025; 93005; 99285

== ENCOUNTER → 2022-06-28 11:23 | Outpatient (BNVA) | payer SELFPAY | PROVIDERS: PCP Family Medicine Adult Medicine; Visit Provider Orthopaedic Surgery | DX: M48.061 Spinal stenosis, lumbar region without neurogenic claudication (principal); M25.78 Osteophyte, vertebrae | CPT/HCPCS: 72110 ==

== ENCOUNTER → 2022-09-12 07:31 | Outpatient (BNVA) | payer SELFPAY | PROVIDERS: PCP Family Medicine Adult Medicine; Visit Provider Family Medicine Adult Medicine | DX: E78.1 Pure hyperglyceridemia (principal); I21.4 Non-ST elevation (NSTEMI) myocardial infarction; I12.9 Hypertensive chronic kidney disease with stage 1 through stage 4 chronic kidney disease, or unspecified chronic kidney disease; N18.30 Chronic kidney disease, stage 3 unspecified | CPT/HCPCS: 80053; 80061; 84443; 85025 ==

== ENCOUNTER 2022-11-19 12:58 | Outpatient (CLI) | payer SELFPAY ==
--- NOTE | 2022-11-19 13:05 | MR_ITS ---
WS: [id number] MRI LUMBAR SPINE NONCONTRAST TECHNIQUE: Sagittal T1, T2 and STIR imaging. Axial T1 and T2 imaging. CLINICAL INFORMATION: PAIN COMPARISON: None. FINDINGS: Mild lumbar curve. No acute compression. Disc bulging worse at L4-L5 and L5-S1. L1-L2: Mild facet arthropathy. Spinal canal and foramen are patent. L2-L3: No significant disc bulging. Mild facet arthropathy. Spinal canal and foramen are patent. L3-L4: Eccentric disc bulging with mild LEFT greater than RIGHT foraminal narrowing. Mild facet arthr opathy. Spinal canal is patent. L4-L5: RIGHT pericentral disc protrusion impinges the RIGHT subarticular recess and traversing RIGHT L5 nerve root in the subarticular recess. Moderate central canal stenosis. Moderate RIGHT foraminal n arrowing impinges the exiting RIGHT L4 nerve root. Mild LEFT foraminal narrowing. Mild facet arthropa thy. L5-S1: Mild annular bulging with slight effacement of the ventral thecal sac. Small annular fissure. Mild RIGHT foraminal narrowing. LEFT foramen is patent. Small annular fissure. Disc bulging with slig ht impingement on the traversing RIGHT S1 nerve root. Mild facet arthropathy. Visualized pelvic bony structures: Normal. Paravertebral soft tissues: Normal. MR/MR lumbar spine wo con* [id number] IMPRESSION: 1. Mild lumbar curve. No acute compression. Degenerative endplate edema L4-L5. 2. RIGHT pericentral disc protrusion L4-L5 impinges the traversing L5 nerve ro ot in the subarticular recess. Moderate central canal stenosis at this level. 3. Moderate RIGHT L4-L5 foraminal narrowing impinges the exiting RIGHT L4 nerv e root. 4. RIGHT eccentric disc bulging L5-S1 with a small annular fissure slightly im pinges the exiting RIGHT L5 nerve root. In addition, slight impingement margarita ing RIGHT S1 nerve root in the subarticular recess. 5. Mild facet arthropathy L3-L5. 6. Mild LEFT L3-L4 foraminal narrowing.
== END 2022-11-19 12:59 | disposition home or self-care (01) ==
LOC: RAD 12:59
PROVIDERS: PCP Family Medicine Adult Medicine; Visit Provider Orthopaedic Surgery
DX: M54.50 Low back pain, unspecified (principal); G89.29 Other chronic pain
CPT/HCPCS: 72148

== ENCOUNTER 2023-03-13 11:25 | Emergency (ER) | payer OTHER, SELFPAY ==
[2023-03-13 11:35] VITALS: BP 133/92; PULSE 80; RESP 18; TEMP 36.6; O2SAT 98; BMI 32.8
--- NOTE | 2023-03-13 11:51 | XRR_ITS ---
PROCEDURE INFORMATION: Exam: XR Left Hand Exam date and time: 03/13/2023 11:57 AM Age: 43 years old Clinical indication: Injury or trauma; Other: Index finger cut by terrazzo grinder; Laceration; Hand and finger; Left TECHNIQUE: Imaging protocol: Radiologic exam of the left hand. Views: 3 or more views. COMPARISON: No relevant prior studies available. FINDINGS: Bones/joints: Negative for acute bony abnormality. Soft tissues: Soft tissue effusion and laceration is seen in the distal aspect of the index finger. There is no evidence of soft tissue foreign body. XR/XR hand LT min 3V* [id number] IMPRESSION: 1. Soft tissue effusion and laceration distal aspect of the index finger. 2. Negative for acute bony abnormalities.
--- NOTE | 2023-03-13 11:52 | ED_ITS ---
HPI - Wound/Laceration General: Chief Complaint: Wound/Laceration Stated Complaint: WC/finger injury Time Seen by Provider: 03/13/23 11:52 History of Present Illness: Patient is a 43-year-old male comes to the ED with left finger injury. Injury occurred at work today. He states he got his left index finger caught in beef grinder. He rates his pain currently a 10 out of 10. Injury to finger was over the distal end of finger and it removed nail. patient is up-to-date on his tetanus. Associated symptoms: Denies chills, fever(s), nausea or vomiting Review of Systems Const: Denies: fever(s), chills or fatigue Eyes: Denies: change in vision or eye discomfort ENMT: Denies: throat pain, odynophagia, nasal discharge or nasal congestion Card: Denies: chest pain, palpitations, edema, swelling of feet/ankles, dyspnea on exertion or orthopnea Resp: Denies: dyspnea, productive cough or non-productive cough GI: Denies: abdominal pain, nausea, vomiting, diarrhea, constipation or hematochezia : Denies: flank pain, difficulty urinating, dysuria or hematuria Musc: Reports: extremity pain (Left index finger); Denies: neck pain, back pain or extremity swelling Skin/Breast: Reports: new lesions (Nail and skin avulsion-left index finger); Denies: rash Neuro: Denies: headache(s), numbness in extremities or weakness in extremities [facility] ED PFSH: Medical History (Updated 03/13/23 @ 13:36 by LENIN Valadez) Bilateral hearing loss due to cerumen impaction Chronic lumbar pain Chronic pain of left lower extremity Chronic pain of right lower extremity CKD (chronic kidney disease) stage 3, GFR 30-59 ml/min Disc narrowing Erectile dysfunction History of methamphetamine use -UDS positive for methamphetamines; denies use; previously positive -could be contributing to hypertensive emergency Hypertension Hypertriglyceridemia LVH (left ventricular hypertrophy) Obesity (BMI 30.0-34.9) Family History Other CAD (coronary artery disease) Diabetes Hypertension Social History (Updated 09/12/22 @ 07:23 by Dana Reagan LPN) Smoking and tobacco status: current every day smoker cigarettes Alcohol intake: current Alcohol intake frequency: holidays/special occasions only Desire information about alcohol rehabilitation?: No Substance/Drug Use: current Substance/Drug use frequency: few times a week Marital status: Single Current occupational status: unemployed Physical Exam Const: COMMON NORMALS: patient oriented x3 HENMT: COMMON NORMALS: normocephalic HEAD & SCALP: normocephalic MOUTH: Normal oral and palatal mucosa present THROAT: posterior oropharynx normal and uvula midline Neck/C-Spine: COMMON NORMALS: supple GENERAL: Yes normal visual inspection Resp: COMMON NORMALS: normal respiratory effort, No retractions, No use of accessory muscles and clear to auscultation bilaterally AUSCULTATION: clear to auscultation bilaterally Cardio: COMMON NORMALS: regular rate, regular rhythm, S1 normal heart sound present, S2 normal heart sound present, No gallops present (Cardio), No clicks present (Cardio), No murmurs present (Cardio) and Peripheral pulses 2+ throughout RATE: regular rate RHYTHM: regular rhythm HEART SOUNDS: S1 normal heart sound present and S2 normal heart sound present PERIPHERAL PULSES: Peripheral pulses 2+ throughout GI: COMMON NORMALS: Normal to inspection, nondistended, normoactive bowel sounds present, Soft to palpation, non-tender and no masses PALPATION: Yes Soft to palpation : COMMON NORMALS: Yes no CVA tenderness BLADDER/KIDNEY EXAM: Yes no CVA tenderness Back/Pelvis: COMMON NORMALS: no CVA tenderness Extremity: NARRATIVE EXTREMITY EXAM: Left hand?index finger?nail avulsion and skin avulsion of distal end of finger. A small piece of of nail is intact on distal aspect of finger. No foreign body seen. Neuro: COMMON NORMALS: patient oriented x3 GAIT: Yes Normal gait present Skin: GENERAL SKIN EXAM: dry skin Procedures Nerve Block Nerve Block 1: Time out performed: Yes Local Anesthetic: lidocaine 2% Amount of anesthesia used (mL): 6 Side: left Nerve Blocks: digital (Index finger) Procedure Successful: Yes Patient Tolerated Procedure: well Complications: none Course Vital Signs: Vital signs: Vital Signs Temperature 97.9 F 03/13/23 14:28 Pulse Rate 80 03/13/23 14:28 Respiratory Rate 18 03/13/23 14:28 Blood Pressure 133/92 03/13/23 14:28 Pulse Oximetry 98 03/13/23 14:28 Oxygen Delivery Me thod Room Air 03/13/23 11:35 MDM - Wound/Laceration Medical Decision Making Patient is a 43-year-old male comes to the ED with left finger injury. Injury occurred at work today. He states he got his left index finger caught in beef grinder. He rates his pain currently a 10 out of 10. Injury to finger was over the distal end of finger and it removed nail. patient is up-to-date on his tetanus. Vital stable. Left hand?index finger?nail avulsion and skin avulsion of distal end of finger. A small piece of of nail is intact on distal aspect of finger. No foreign body seen. X-ray of left hand showed no acute fractures. Digital block with lidocaine 2% was used for pain control and then nurse irrigated finger extensively with normal saline and iodine wash. I then removed a small piece of detached distal nail. Nurse then placed triple antibiotic ointment over wound and wrapped with Vaseline gauze and bandage. Patient was instructed on how to care for wound and discharged home with a prescription for an antibiotic. He was diagnosed with a nail avulsion and skin avulsion of finger. He is told to follow-up with his PCP within the next week for reevaluation of wound to make sure it is healing well. Return to ED precautions given. Patient understood and agreed with plan. Lab Data Radiology Impressions Hand X-Ray 03/13/23 11:51 IMPRESSION: 1. Soft tissue effusion and laceration distal aspect of the index finger. 2. Negative for acute bony abnormalities. Discharge Plan Discharge Patient Disposition: Home Clinical Impression: Avulsion of nail of left index finger, Avulsion of skin of finger Condition: Stable Prescriptions: New cephalexin 500 mg capsule 500 mg PO Q6H 7 Days Qty: 28 0RF No Action acetaminophen 650 mg tablet extended release 650 mg PO Q8H PRN (Reason: pain) Qty: 90 0RF hydrocodone bitartrate 10 mg capsule, oral only, ER 12hr 10 mg PO Q12H PRN (Reason: moderate pain (scale score 5-6)) 30 Days Qty: 60 0RF Rx Instructions: Can refill on or after 30-day intervals amlodipine 10 mg tablet 5 mg PO QAM Qty: 30 5RF aspirin 81 mg tablet,delayed release (DR/EC) 81 mg PO DAILY Qty: 90 3RF clonidine HCl 0.1 mg tablet 0.2 mg PO TID Qty: 180 5RF isosorbide mononitrate 30 mg tablet extended release 24 hr 30 mg PO DAILY Qty: 30 5RF hydrochlorothiazide 25 mg tablet 25 mg PO QAM Qty: 30 5RF pregabalin 25 mg capsule 25 mg PO BID Qty: 30 5RF atorvastatin 40 mg tablet 40 mg PO QAM Qty: 90 1RF lisinopril 20 mg tablet 20 mg PO QAM Qty: 90 1RF metoprolol tartrate 50 mg tablet 50 mg PO BID@06,12 Qty: 60 5RF Discharge Orders: Discharge ED (Routine); Ordered 03/13/23 Ordered By: Chalino Jara Referrals: Gonzalo Duarte MD [Primary Care Provider] - Discharge Diet: Regular Discharge Activity: Limit activity as instructed Patient Instructions: Skin Avulsion (ED), Nail Avulsion (ED), Opioid Safety Activity Restrictions/Additional Instructions: Follow-up with medical provider as directed in the next 5 to 7 days for reevaluation. Keep bandage placed here in the ED on for the next 48 hours. After 48 hours you can remove bandage daily and clean with soap and water then apply triple antibiotic ointment on it and cover with bandage. Take medications as prescribed. Watch for any signs of infection such as redness, warmth, swelling, increased pain or puslike drainage at wound site. Return to the ER or your medical provider if condition worsens. Please read and understand discharge instructions. Thank you for choosing [facility] for your healthcare needs today. Please realize this is an emergency room and that we are providing you with a medical screening exam and this may not be complete and all inclusive of all the testing and or work up that you may need to determine your ailment or severity of your illness. It is very important that you follow up as instructed or that you return to the Emergency Department should you have concerns or if your condition changes or worsens in any way. Coding Level of Care Code ED Flight Communications Operator for Mateusz Estevez
[2023-03-13] MEDS: HYDROcodone-acetaminophen 7.5-325 mg Tablet 1 TAB PO (12:13)
[2023-03-13] MEDS: lidocaine 2% INJ 20 mL 10 ML INJECTION (12:51)
[2023-03-13 14:28] VITALS: BP 133/92; PULSE 80; RESP 18; TEMP 36.6; O2SAT 98
== END 2023-03-13 14:29 | disposition home or self-care (01) ==
PROVIDERS: Emergency Provider Physician Assistant; PCP Family Medicine Adult Medicine
DX: S61.301A Unspecified open wound of left index finger with damage to nail, initial encounter (principal); Z79.82 Long term (current) use of aspirin; F17.210 Nicotine dependence, cigarettes, uncomplicated; I12.9 Hypertensive chronic kidney disease with stage 1 through stage 4 chronic kidney disease, or unspecified chronic kidney disease; N18.30 Chronic kidney disease, stage 3 unspecified; W31.89XA Contact with other specified machinery, initial encounter
CPT/HCPCS: 64450; 73130; 99283

== ENCOUNTER → 2023-04-12 15:29 | Outpatient (BNVA) | payer SELFPAY | PROVIDERS: PCP Family Medicine Adult Medicine; Visit Provider Family Medicine Adult Medicine | DX: H61.21 Impacted cerumen, right ear (principal); M48.062 Spinal stenosis, lumbar region with neurogenic claudication; M54.50 Low back pain, unspecified; G89.29 Other chronic pain; I10 Essential (primary) hypertension; N18.30 Chronic kidney disease, stage 3 unspecified; E78.1 Pure hyperglyceridemia; M79.605 Pain in left leg; I21.4 Non-ST elevation (NSTEMI) myocardial infarction; F17.200 Nicotine dependence, unspecified, uncomplicated | CPT/HCPCS: 80053; 84443; 85025 ==

== ENCOUNTER → 2023-06-26 11:32 | Outpatient (BNVA) | payer SELFPAY | PROVIDERS: PCP Family Medicine Adult Medicine; Visit Provider Internal Medicine Cardiovascular Disease | DX: R07.9 Chest pain, unspecified (principal) | CPT/HCPCS: 93005 ==

== ENCOUNTER → 2023-06-26 17:04 | Outpatient (BNVA) | payer SELFPAY | PROVIDERS: PCP Family Medicine Adult Medicine; Visit Provider Emergency Medicine | DX: J06.9 Acute upper respiratory infection, unspecified (principal) | CPT/HCPCS: 87426 ==

== ENCOUNTER → 2023-12-24 16:07 | Outpatient (BNVA) | payer SELFPAY | PROVIDERS: PCP Family Medicine Adult Medicine; Visit Provider Family Medicine Adult Medicine | DX: R63.5 Abnormal weight gain (principal); I10 Essential (primary) hypertension; N52.9 Male erectile dysfunction, unspecified; N18.30 Chronic kidney disease, stage 3 unspecified | CPT/HCPCS: 80053; 84443; G0103 ==

== ENCOUNTER 2024-02-03 07:50 | Emergency (ER) | payer SELFPAY ==
[2024-02-03 07:56] VITALS: BP 111/65; PULSE 95; TEMP 36.8; O2SAT 97; BMI 32.8
--- NOTE | 2024-02-03 08:08 | ED_ITS ---
HPI - Eye Problem General: Chief complaint: Skin/Abscess/Foreign Body Stated complaint: something in R eye Time Seen by Provider: 02/03/24 07:58 Source: patient Mode of arrival: ambulatory History of Present Illness: 44-year-old male presents emergency room complaining of discomfort in his right eye localizes the foreign body sensation to the superior aspect of the temporal portion of his right eye. 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 He is tried examining at [place] and he had his partner look in the eye did not see anything. He has noticed watering and sensitivity to light. MD chief complaint: eye pain and foreign body Onset (ago): day(s) Onset description: sudden Duration: constant Location: right eye Eye Symptoms: foreign body sensation Associated symptoms: Denies fever(s) Review of Systems Const: Denies: fever(s) or chills Card: Denies: chest pain Resp: Denies: dyspnea PFSH ED PFSH: Medical History Pain management contract discussed Weight gain finding Chronic lumbar pain CKD (chronic kidney disease) stage 3, GFR 30-59 ml/min Erectile dysfunction Hypertriglyceridemia Obesity (BMI 30.0-34.9) History of methamphetamine use -UDS positive for methamphetamines; denies use; previously positive -could be contributing to hypertensive emergency Hypertension Family History Other CAD (coronary artery disease) Diabetes Hypertension Social History Smoking and tobacco/nicotine status: current every day tobacco/nicotine user cigarettes Alcohol intake: current Alcohol intake frequency: holidays/special occasions only Substance/Drug Use: current Substance/Drug use frequency: few times a week Marital status: Single Current occupational status: unemployed Physical Exam Const: COMMON NORMALS: no acute distress GENERAL APPEARANCE: cooperative and comfortable ORIENTATION/CONSCIOUSNESS: Yes awake, Yes oriented to person, Yes oriented to place and Yes oriented to time HENMT: COMMON NORMALS: normocephalic, atraumatic and hearing grossly normal bilaterally HEAD & SCALP: normocephalic and atraumatic Neuro: SENSORIUM/ORIENTATION: Yes oriented to person, Yes oriented to place and Yes oriented to time Skin: COMMON NORMALS: no rashes or lesions noted GENERAL SKIN EXAM: no rashes or lesions noted Course Vital Signs: Vital signs: Vital Signs Temperature 98.3 F 02/03/24 07:56 Pulse Rate 95 02/03/24 07:56 Blood Pressure 111/65 02/03/24 07:56 Pulse Oximetry 97 02/03/24 07:56 Oxygen Delivery Me thod Room Air 02/03/24 07:56 MDM - Eye Problem Medical Decision Making Right eye anesthetized tetracaine and fluorescein dye applied. Prior to this we everted the eyelids and examined with simple magnification there is no sign of foreign bodies on eversion of the eyelids or on examination of the globe of the eye. Under black light exam with fluorescein applied there is no increased fluorescein uptake in the sclera or in the cornea. No sign of corneal abrasion or foreign body. Will discharge home on gentamicin drops 2 drops every 4 hours while awake. We have also made arrangements for patient to follow-up with ophthalmology clinic immediately after leaving the emergency room he will see Dr. Olsen at the office. Medical Records I reviewed the patient's medical records. Lab Data I reviewed the patient's lab results. No radiology studies performed this visit Discharge Plan Discharge Patient Disposition: Home Clinical Impression: Acute right eye pain Condition: Stable Prescriptions: New gentamicin 0.3 % drops 2 drp ophthalmic (eye) Q4H Qty: 5 0RF No Action acetaminophen 650 mg tablet extended release 650 mg PO Q8H PRN (Reason: pain) Qty: 90 0RF lisinopril 20 mg tablet 20 mg PO QAM Qty: 90 1RF aspirin 81 mg tablet,delayed release (DR/EC) 81 mg PO DAILY Qty: 90 3RF metoprolol tartrate 50 mg tablet 50 mg PO BID@06,12 Qty: 60 5RF hydrochlorothiazide 25 mg tablet 25 mg PO QAM Qty: 90 0RF amlodipine 10 mg tablet 5 mg PO QAM Qty: 45 1RF clonidine HCl 0.1 mg tablet 0.2 mg PO TID Qty: 540 0RF atorvastatin 40 mg tablet 40 mg PO QAM Qty: 90 1RF hydrocodone-acetaminophen 7.5-325 mg tablet 1 tab PO Q12H PRN (Reason: pain) 30 Days Qty: 60 0RF Rx Instructions: refill on or after 30 days Discharge Orders: Discharge ED (Routine); Ordered 02/03/24 Ordered By: Miguel Sanchez Referrals: Gonzalo Duarte MD [Primary Care Provider] - Discharge Diet: Usual diet Discharge Activity: Resume usual activity Patient Instructions: Opioid Safety, Pain Management Activity Restrictions/Additional Instructions: Thank you for choosing [facility] for your healthcare needs today. Please realize this is an emergency room and that we are providing you with a medical screening exam and this may not be complete and all inclusive of all the testing and or work up that you may need to determine your ailment or severity of your illness. It is very important that you follow up as instructed or that you return to the Emergency Department should you have concerns or if your condition changes or worsens in any way. You were seen in the emergency room for complaint of foreign body sensation in the right eye. After anesthetizing and placing fluorescein dye in the I could not visualize any corneal abrasions or foreign bodies. Eversion of the eyelids we did not see any foreign bodies. We made arrangements for you to be seen at Dr. Olsen's office immediately after leaving the emergency room today you should proceed there. Coding Level of Care Code ED Youth Worker for Mateusz Estevez
[2024-02-03] MEDS: tetracaine 0.5% Op Soln 4 mL Btl 1 DROP EYE-RIGHT (08:26)
[2024-02-03] MEDS: fluorescein 1 mg Strip EYE-RIGHT (08:27)
== END 2024-02-03 08:45 | disposition home or self-care (01) ==
PROVIDERS: Emergency Provider Family Medicine; PCP Family Medicine Adult Medicine
DX: H57.11 Ocular pain, right eye (principal); Z79.82 Long term (current) use of aspirin; I12.9 Hypertensive chronic kidney disease with stage 1 through stage 4 chronic kidney disease, or unspecified chronic kidney disease; N18.30 Chronic kidney disease, stage 3 unspecified; F17.210 Nicotine dependence, cigarettes, uncomplicated
CPT/HCPCS: 99283

== ENCOUNTER → 2024-05-21 15:34 | Outpatient (BNVA) | payer SELFPAY | PROVIDERS: PCP Family Medicine Adult Medicine; Visit Provider Family Medicine Adult Medicine | DX: I10 Essential (primary) hypertension (principal); E66.9 Obesity, unspecified; E78.1 Pure hyperglyceridemia; N18.31 Chronic kidney disease, stage 3a | CPT/HCPCS: 80053; 85025 ==

== ENCOUNTER → 2024-08-02 16:46 | Outpatient (BNVA) | payer OTHER, SELFPAY | PROVIDERS: PCP Family Medicine Adult Medicine; Visit Provider Registered Nurse Neonatal Intensive Care | DX: R50.9 Fever, unspecified (principal) | CPT/HCPCS: 87426 ==

== ENCOUNTER 2024-11-05 15:50 | Outpatient (RCR) | payer OTHER, SELFPAY | END 2024-12-04 23:59 | disposition home or self-care (01) | LOC: SPT 15:50 | PROVIDERS: PCP Family Medicine Adult Medicine; Visit Provider Family Medicine | DX: M48.062 Spinal stenosis, lumbar region with neurogenic claudication (principal) | CPT/HCPCS: 97110; 97161 ==

== ENCOUNTER 2024-11-14 14:13 | Emergency (ER) | payer OTHER, SELFPAY ==
--- NOTE | 2024-11-14 14:21 | XRR_ITS ---
PROCEDURE INFORMATION: Exam: XR Right Ankle Exam date and time: 11/14/2024 2:49 PM Age: 44 years old Clinical indication: Right; Patient HX: RT ankle pain/swelling post fall TECHNIQUE: Imaging protocol: Radiologic exam of the right ankle. Views: 3 or more views. COMPARISON: No relevant prior studies available. FINDINGS: Bones/joints: Normal. Soft tissues: Normal. XR/XR ankle RT min 3V* [id number] IMPRESSION: No acute findings.
[2024-11-14 14:26] VITALS: BP 141/95; PULSE 91; RESP 16; TEMP 37; O2SAT 99; BMI 34.0
--- NOTE | 2024-11-14 15:36 | W.ED.EXTPRO ---
HPI - Extremity Problem General: Chief complaint: Extremity Injury, Lower Stated complaint: right ankle pain Time Seen by Provider: 11/14/24 15:25 History of Present Illness: Patient is a 44-year-old male that presents to the emergency department with complaints of right ankle pain. Patient reports that he was out playing with his children and has no when he rolled his ankle. He was not able to bear weight initially but he reports it has improved since injury. Patient reports prior ankle sprains. Denies prior surgery to the ankle. Related Data Previous Rx's Medication Instructions Recorded acetaminophen 650 mg 650 mg PO Q8H PRN pain #90 tabs 09/12/22 tablet,extended release aspirin 81 mg tablet,delayed 81 mg PO DAILY #90 tabs 05/21/24 release hydrochlorothiazide 25 mg tablet 25 mg PO QAM blood pressure #7 tabs 07/01/24 amlodipine 10 mg tablet 5 mg (1/2 x 10 mg) PO QAM high 07/13/24 blood pressure #45 tabs clonidine HCl 0.1 mg tablet 0.2 mg (2 x 0.1 mg) PO TID High 08/06/24 blood pressure #540 tabs atorvastatin 40 mg tablet 40 mg PO QAM hyperlipidemia #90 09/18/24 tabs azithromycin 250 mg tablet See Rx Instructions PO .COMPLEX #6 10/20/24 (Zithromax Z-Eric) tabs hydrocodone 7.5 mg-acetaminophen 1 tab PO Q12H PRN pain 30 days #60 10/20/24 325 mg tablet tabs losartan 100 mg tablet 100 mg PO DAILY #90 tabs 10/20/24 metoprolol succinate 50 mg 50 mg PO DAILY #90 tabs 10/20/24 tablet,extended release 24 hr prednisone 20 mg tablet 60 mg (3 x 20 mg) PO DAILY 5 days 10/20/24 #15 tabs Allergies Allergy/AdvReac Type Severity Reaction Status Date / Time gabapentin Allergy Intermediate ami walker Verified 10/20/24 08:20 ry Review of Systems General: Reports: 10 or more systems reviewed and unremarkable except in HPI and below PFSH ED PFS: Medical History (Updated 11/14/24 @ 15:40 by Greg Taylor, SELAM) Hyperlipidemia, mixed Lumbar stenosis with neurogenic claudication Bilateral lower extremity chronic pain; referral to PT 12 Pain management contract signed signed 10.20.24 [facility] [place] Encounter for chronic pain management hydrocodone chronic back pain Chronic lumbar pain CKD (chronic kidney disease) stage 3, GFR 30-59 ml/min Erectile dysfunction Hypertriglyceridemia Obesity (BMI 30.0-34.9) History of methamphetamine use -UDS positive for methamphetamines; denies use; previously positive -could be contributing to hypertensive emergency Hypertension Surgical History (Updated 10/20/24 @ 08:38 by Dede Fuller MD) Hx of unilateral orchiectomy Right; for benign tumor Family History Mother Diabetes mellitus, type 2 Father Hypertension Other CAD (coronary artery disease) Diabetes Social History (Updated 10/20/24 @ 08:36 by Dede Fuller MD) Smoking and tobacco/nicotine status: current every day tobacco/nicotine user cigarettes Alcohol intake: current Alcohol intake frequency: holidays/special occasions only Substance/Drug Use: former Date of last use: 2019; Former substance use details: meth--no injection; Household members: children Marital status: Number of children: 4 Highest education level completed: Associate Degree: Academic Program Current occupational status: employed 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 [employer] Physical Exam Const: COMMON NORMALS: no acute distress, patient oriented x3 and alert GENERAL APPEARANCE: cooperative ORIENTATION/CONSCIOUSNESS: Yes awake, Yes oriented to person, Yes oriented to place and Yes oriented to time Neck/C-Spine: COMMON NORMALS: full ROM GENERAL: Yes normal visual inspection Resp: COMMON NORMALS: normal respiratory effort, No retractions and No use of accessory muscles EFFORT & INSPECTION: Yes able to speak in complete sentences and Yes symmetric chest movement Cardio: COMMON NORMALS: regular rate and Peripheral pulses 2+ throughout RATE: regular rate PERIPHERAL PULSES: Peripheral pulses 2+ throughout Extremity: COMMON NORMALS: normal to inspection NARRATIVE EXTREMITY EXAM: Right lower extremity: Skin is clean dry and intact Tenderness to palpation over the lateral malleolus Some edema noted Patient is able to dorsiflex plantarflex the foot Patient is able to dorsiflex great toe Sensation intact light touch in medial, lateral, dorsal, plantar surface of the foot and toes Due to pulses palpable and cap refills less than 3 seconds GENERAL: Yes normal exam except as noted Neuro: COMMON NORMALS: patient oriented x3 SENSORIUM/ORIENTATION: Yes alert, Yes oriented to person, Yes oriented to place and Yes oriented to time CRANIAL NERVES: Yes CN normal except as noted Psych: COMMON NORMALS: mental status grossly normal, Normal thought process present, cooperative, activity/motor behavior normal, denies homicidal ideation and denies suicidal ideation THOUGHT PROCESS: Normal thought process present Skin: COMMON NORMALS: no rashes or lesions noted, no wounds and turgor normal GENERAL SKIN EXAM: no rashes or lesions noted and turgor normal Course Vital Signs: Vital signs: Vital Signs Temperature 98.6 F 11/14/24 14:26 Pulse Rate 91 11/14/24 14:26 Respiratory Rate 16 11/14/24 14:26 Blood Pressure 141/95 11/14/24 14:26 Pulse Oximetry 99 11/14/24 14:26 Oxygen Delivery Me thod Room Air 11/14/24 14:26 MDM - Extremity (Nontraumatic) Medical Decision Making Patient is a 44-year-old male that was evaluated today for right ankle pain following an ankle injury while playing with his children. XR imaging of the ankle reveals no acute fracture or dislocation. Patient is tender to palpation over the lateral malleolus suggestive of ankle sprain. Okay to give him instructions on range of motion exercises as well as rehab. Patient needs to follow-up with his primary care doctor in 5 to 7 days if he is not any better. Patient is agreeable and all questions were answered. Lab Data Radiology Impressions Ankle X-Ray 11/14/24 14:21 IMPRESSION: No acute findings. All radiology interpretation(s) finalized by discharge Discharge Plan Discharge Patient Disposition: Home Clinical Impression: Ankle sprain Condition: Stable Prescriptions: No Action acetaminophen 650 mg tablet extended release 650 mg PO Q8H PRN (Reason: pain) Qty: 90 0RF aspirin 81 mg tablet,delayed release (DR/EC) 81 mg PO DAILY Qty: 90 3RF metoprolol succinate 50 mg tablet extended release 24 hr 50 mg PO DAILY Qty: 90 3RF losartan 100 mg tablet 100 mg PO DAILY Qty: 90 3RF hydrocodone-acetaminophen 7.5-325 mg tablet 1 tab PO Q12H PRN (Reason: pain) 30 Days Qty: 60 0RF Rx Instructions: refill on or after 30 days azithromycin [Zithromax Z-Eric] 250 mg tablet See Rx Instructions PO .COMPLEX Qty: 6 0RF Rx Instructions: For 250 mg dose pack: take 500 mg today (day 1), then 250 mg for 4 days (days 2-5) PO prednisone 20 mg tablet 60 mg PO DAILY 5 Days Qty: 15 0RF hydrochlorothiazide 25 mg tablet 25 mg PO QAM Qty: 7 12RF amlodipine 10 mg tablet 5 mg PO QAM Qty: 45 1RF clonidine HCl 0.1 mg tablet 0.2 mg PO TID Qty: 540 0RF atorvastatin 40 mg tablet 40 mg PO QAM Qty: 90 1RF Discharge Orders: Discharge ED (Routine); Ordered 11/14/24 Ordered By: Greg Taylor Referrals: Gonzalo Duarte MD [Primary Care Provider] - Discharge Diet: Advance as tolerated Discharge Activity: Resume usual activity Patient Instructions: Ankle Sprain (ED), Pain Management Activity Restrictions/Additional Instructions: Work on ankle range of motion while at rest. RICE?rest, ice, compression, elevation. You can also use nonsteroidal anti-inflammatory drugs like ibuprofen, naproxen, Aleve. Tylenol is a different type of drug but may also be useful in pain relieving. I have given you a copy of ankle exercises. This is if you are actually improving. If you do not feel you are improving or if you feel you are worsening, follow-up with your primary care doctor for reevaluation of todays complaints Coding Level of Care Code ED Product Support Rep for Mateusz Estevez
== END 2024-11-14 15:53 | disposition home or self-care (01) ==
PROVIDERS: Emergency Provider Nurse Practitioner; PCP Family Medicine Adult Medicine
DX: S93.401A Sprain of unspecified ligament of right ankle, initial encounter (principal); F17.210 Nicotine dependence, cigarettes, uncomplicated; E78.2 Mixed hyperlipidemia; I12.9 Hypertensive chronic kidney disease with stage 1 through stage 4 chronic kidney disease, or unspecified chronic kidney disease; N18.30 Chronic kidney disease, stage 3 unspecified; X58.XXXA Exposure to other specified factors, initial encounter
CPT/HCPCS: 73610; 99283

== ENCOUNTER 2024-11-24 20:45 | Emergency (ER) | payer OTHER, SELFPAY ==
[2024-11-24 21:09] VITALS: BP 158/111; PULSE 89; RESP 14; TEMP 36.9; O2SAT 98
--- NOTE | 2024-11-24 21:20 | XRR_ITS ---
PROCEDURE INFORMATION: Exam: XR Left Hand Exam date and time: 11/24/2024 9:26 PM Age: 44 years old Clinical indication: Injury or trauma; Other: Lac to lt hand; Laceration; Left; Additional info: Lac, foreign body sensation TECHNIQUE: Imaging protocol: Radiologic exam of the left hand. Views: 3 or more views. COMPARISON: 03/13/2023. FINDINGS: Radiopaque foreign body is noted just adjacent to the 1st carpometacarpal joint. No fractures are seen. The remainder of the left hand appears normal. XR/XR hand LT min 3V* [id number] IMPRESSION: Retained radiopaque foreign body as described.
--- NOTE | 2024-11-24 21:55 | W.ED.WOUNDLC ---
HPI - Wound/Laceration General: Chief Complaint: Wound/Laceration Stated Complaint: cut on left hand Time Seen by Provider: 11/24/24 21:19 Source: patient Mode of arrival: ambulatory Limitations: no limitations History of Present Illness: Patient is a 44-year-old male who presents the emergency department complaining of injury to left hand. Patient states he cut it on an ashtray, arrives with small superficial laceration no active bleeding. States he still feels like there is something in his hand, his tetanus is up-to-date. No distal neurovascular symptoms reported. No contamination reported. Onset (ago): hour(s) Extremity Location: Left: hand Patient tetanus UTD: Yes Context: accidental Associated symptoms: Denies chills, fever(s), nausea or vomiting Related Data Previous Rx's Medication Instructions Recorded acetaminophen 650 mg 650 mg PO Q8H PRN pain #90 tabs 09/12/22 tablet,extended release aspirin 81 mg tablet,delayed 81 mg PO DAILY #90 tabs 05/21/24 release hydrochlorothiazide 25 mg tablet 25 mg PO QAM blood pressure #7 tabs 07/01/24 clonidine HCl 0.1 mg tablet 0.2 mg (2 x 0.1 mg) PO TID High 08/06/24 blood pressure #540 tabs atorvastatin 40 mg tablet 40 mg PO QAM hyperlipidemia #90 09/18/24 tabs azithromycin 250 mg tablet See Rx Instructions PO .COMPLEX #6 10/20/24 (Zithromax Z-Eric) tabs losartan 100 mg tablet 100 mg PO DAILY #90 tabs 10/20/24 metoprolol succinate 50 mg 50 mg PO DAILY #90 tabs 10/20/24 tablet,extended release 24 hr prednisone 20 mg tablet 60 mg (3 x 20 mg) PO DAILY 5 days 10/20/24 #15 tabs hydrocodone 7.5 mg-acetaminophen 1 tab PO Q12H PRN pain 30 days #60 11/19/24 325 mg tablet tabs amlodipine 10 mg tablet 5 mg (1/2 x 10 mg) PO QAM high 11/23/24 blood pressure #45 tabs cephalexin 500 mg capsule 500 mg PO BID 5 days #10 caps 11/24/24 Allergies Allergy/AdvReac Type Severity Reaction Status Date / Time gabapentin Allergy Intermediate ami walker Verified 01/21/25 21:14 ry Review of Systems General: Reports: 10 or more systems reviewed and unremarkable except in HPI and below Const: Denies: fever(s) or chills Card: Denies: chest pain Resp: Denies: dyspnea GI: Denies: abdominal pain, nausea, vomiting or diarrhea Musc: Denies: extremity pain or joint pain Skin/Breast: Reports: new lesions (Small laceration left hand); Denies: rash, skin pain or skin tenderness Neuro: Denies: headache(s) PFSH ED PFSH: Medical History Hyperlipidemia, mixed Lumbar stenosis with neurogenic claudication Bilateral lower extremity chronic pain; referral to PT 12 Pain management contract signed signed 10.20.24 [facility] Encounter for chronic pain management hydrocodone chronic back pain Chronic lumbar pain CKD (chronic kidney disease) stage 3, GFR 30-59 ml/min Erectile dysfunction Hypertriglyceridemia Obesity (BMI 30.0-34.9) History of methamphetamine use -UDS positive for methamphetamines; denies use; previously positive -could be contributing to hypertensive emergency Hypertension Surgical History Hx of unilateral orchiectomy Right; for benign tumor Family History Mother Diabetes mellitus, type 2 Father Hypertension Other CAD (coronary artery disease) Diabetes Social History Smoking and tobacco/nicotine status: current every day tobacco/nicotine user cigarettes Alcohol intake: current Alcohol intake frequency: holidays/special occasions only Substance/Drug Use: former Date of last use: 2019 meth; Former substance use details: meth--no injection; Household members: children Marital status: Number of children: 4 Highest education level completed: Associate Degree: Academic Program Current occupational status: employed 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 [employer] Physical Exam Const: COMMON NORMALS: no acute distress, average body habitus, patient oriented x3, no limitations, healthy appearing, alert and well nourished HENMT: COMMON NORMALS: normocephalic and atraumatic HEAD & SCALP: normocephalic and atraumatic Neck/C-Spine: COMMON NORMALS: full ROM, no lymphadenopathy, supple and no meningeal signs Resp: COMMON NORMALS: normal respiratory effort, No use of accessory muscles and clear to auscultation bilaterally AUSCULTATION: clear to auscultation bilaterally Cardio: COMMON NORMALS: regular rate and regular rhythm RATE: regular rate RHYTHM: regular rhythm Extremity: COMMON NORMALS: full ROM and capillary refill normal Neuro: COMMON NORMALS: patient oriented x3, moves all extremities, no focal motor deficits and no sensory deficits noted SENSORIUM/ORIENTATION: Yes alert MENINGEAL SIGNS: Yes no meningeal signs Skin: COMMON NORMALS: turgor normal NARRATIVE SKIN EXAM: Small less than 1 cm superficial laceration to left thenar eminence. No obvious foreign body or contamination. No active bleeding. GENERAL SKIN EXAM: turgor normal Procedures Foreign Body Removal Time Out Performed: no Site: left and hand Description of foreign body: other (Glass) Technique: manual removal and removal with forceps Confirmed by:: direct visualization and radiograph Complications: none Post-procedure exam: awake, alert Neurovascular: normal distal pulse, normal capillary fill, distal light touch sensation intact, distal motor function normal, no signs of compartment syndrome and no change from pre-procedure Course Vital Signs: Vital signs: Vital Signs Temperature 98.4 F 11/24/24 21:09 Pulse Rate 89 11/24/24 21:09 Respiratory Rate 14 11/24/24 21:09 Blood Pressure 158/111 11/24/24 21:09 Pulse Oximetry 98 11/24/24 21:09 Oxygen Delivery Me thod Room Air 11/24/24 21:09 MDM - Wound/Laceration Medical Decision Making Patient injured her left hand with broken ashtray glass, there was retained foreign body on visual examination as well as on x-ray. The 1 piece of glass was removed after local anesthesia and removed with forceps. Wound too superficial for any approximation with sutures, discussed proper wound care and will start on antibiotics due to the foreign body. His tetanus was up-to-date. Return precautions given. Lab Data Radiology Impressions Hand X-Ray 11/24/24 21:20 IMPRESSION: Retained radiopaque foreign body as described. All radiology interpretation(s) finalized by discharge Discharge Plan Discharge Patient Disposition: Home Clinical Impression: Acute foreign body of left hand Qualifiers: Encounter type: initial encounter Qualified Code(s): S60.552A - Superficial foreign body of left hand, initial encounter Condition: Stable Prescriptions: New cephalexin 500 mg capsule 500 mg PO BID 5 Days Qty: 10 0RF No Action acetaminophen 650 mg tablet extended release 650 mg PO Q8H PRN (Reason: pain) Qty: 90 0RF aspirin 81 mg tablet,delayed release (DR/EC) 81 mg PO DAILY Qty: 90 3RF metoprolol succinate 50 mg tablet extended release 24 hr 50 mg PO DAILY Qty: 90 3RF losartan 100 mg tablet 100 mg PO DAILY Qty: 90 3RF azithromycin [Zithromax Z-Eric] 250 mg tablet See Rx Instructions PO .COMPLEX Qty: 6 0RF Rx Instructions: For 250 mg dose pack: take 500 mg today (day 1), then 250 mg for 4 days (days 2-5) PO prednisone 20 mg tablet 60 mg PO DAILY 5 Days Qty: 15 0RF hydrochlorothiazide 25 mg tablet 25 mg PO QAM Qty: 7 12RF clonidine HCl 0.1 mg tablet 0.2 mg PO TID Qty: 540 0RF atorvastatin 40 mg tablet 40 mg PO QAM Qty: 90 1RF hydrocodone-acetaminophen 7.5-325 mg tablet 1 tab PO Q12H PRN (Reason: pain) 30 Days Qty: 60 0RF Rx Instructions: refill on or after 30 days amlodipine 10 mg tablet 5 mg PO QAM Qty: 45 1RF Discharge Orders: Discharge ED (Routine); Ordered 11/24/24 Ordered By: Rene Rodriguez Referrals: Dede Fuller MD [Primary Care Provider] - Activity Restrictions/Additional Instructions: Antibiotics as prescribed. General wound care, clean wound with warm soap and water and keep dry prior to covering. Monitor for any signs of infection. Return with any new or worsening symptoms. 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
[2024-11-24 22:26] VITALS: BP 136/98; PULSE 84; O2SAT 97
== END 2024-11-24 22:28 | disposition home or self-care (01) ==
PROVIDERS: Emergency Provider Physician Assistant; PCP Family Medicine
DX: S60.552A Superficial foreign body of left hand, initial encounter (principal); Z79.82 Long term (current) use of aspirin; F17.210 Nicotine dependence, cigarettes, uncomplicated; I12.9 Hypertensive chronic kidney disease with stage 1 through stage 4 chronic kidney disease, or unspecified chronic kidney disease; N18.30 Chronic kidney disease, stage 3 unspecified; X58.XXXA Exposure to other specified factors, initial encounter
CPT/HCPCS: 73130; 99283

== ENCOUNTER 2024-12-05 06:30 | Outpatient (RCR) | payer OTHER, SELFPAY | END 2025-01-01 23:59 | disposition home or self-care (01) | LOC: SPT 06:30 | PROVIDERS: PCP Family Medicine; Visit Provider Family Medicine | DX: M48.062 Spinal stenosis, lumbar region with neurogenic claudication (principal) | CPT/HCPCS: 97110 ==

== ENCOUNTER → 2025-02-26 16:11 | Outpatient (BNVA) | payer OTHER, SELFPAY | PROVIDERS: PCP Family Medicine; Visit Provider Family Medicine | DX: I10 Essential (primary) hypertension (principal); E78.2 Mixed hyperlipidemia; N18.31 Chronic kidney disease, stage 3a | CPT/HCPCS: 80053; 80061; 84443; 85025 ==

== ENCOUNTER 2025-05-21 16:15 | Outpatient (CLI) | payer OTHER, SELFPAY ==
--- NOTE | 2025-05-21 16:22 | XRR_ITS ---
PROCEDURE INFORMATION: Exam: XR Chest Exam date and time: 05/21/2025 4:28 PM Age: 45 years old Clinical indication: Shortness of breath TECHNIQUE: Imaging protocol: Radiologic exam of the chest. Views: 2 views. COMPARISON: CR XR chest 1V portable [id number] 06/04/2022 11:29 AM FINDINGS: Lungs: Unremarkable. No consolidation. Pleural spaces: Unremarkable. No pleural effusion. No pneumothorax. Heart/Mediastinum: Unremarkable. No cardiomegaly. Bones/joints: Unremarkable. XR/XR chest 2V* [id number] IMPRESSION: No acute findings.
== END 2025-05-21 16:16 | disposition home or self-care (01) ==
PROVIDERS: PCP Family Medicine; Visit Provider Family Medicine
DX: R06.02 Shortness of breath (principal)
CPT/HCPCS: 71046

== ENCOUNTER → 2025-06-15 15:55 | Outpatient (BNVA) | payer OTHER, SELFPAY | PROVIDERS: PCP Family Medicine; Visit Provider Nurse Practitioner | DX: A64 Unspecified sexually transmitted disease (principal); Z20.2 Contact with and (suspected) exposure to infections with a predominantly sexual mode of transmission | CPT/HCPCS: 87491; 87591; 87661 ==

== ENCOUNTER 2025-07-13 08:55 | Day surgery (SDC) | payer OTHER, SELFPAY ==
[2025-07-13 09:12] VITALS: BP 145/81; PULSE 67; RESP 18; TEMP 36.3; O2SAT 99; BMI 35.3
--- NOTE | 2025-07-13 09:54 | ANES.PREANE2 ---
Pre-Anesthetic Assessment Height/Weight: Height 1.93 m Weight 131.542 kg Temp Pulse Resp BP Pulse Ox O2 Del Method 97.4 F L 67 18 145/81 99 Room Air 07/13/25 09:12 07/13/25 09:12 07/13/25 09:12 07/13/25 09:12 07/13/25 09:12 07/13/25 09:12 Preop Diagnosis: screening Operation Date: 07/13/25 10:15 Proposed Procedures p Colonoscopy 97913 G0121 Z12.11(Not Applicable) - Francis Coronel MD Was Beta Nithin taken within 24 hours: Yes Was Clonidine taken within 24 hours: Yes Last intake: Intake Last Liquid Date 07/12/25 Last Liquid Time 20:00 Last Solid Date 07/12/25 Last Solid Time 06:00 Social No alcohol and No tobacco 1/2 ppd pack(s) per day Exam alert and oriented x 3 Airway Submandibular: within normal limits Cervical ROM: within normal limits Mallampati: Class III Dentition: full History/ROS No significant history except as noted Pulmonary Chronic Obstructive Pulmonary Disease (not diagnosed but smoked since college) and Shortness of Breath CV/HEM Hypertension denies CP CKD stage 2 Hepatic None reported GI None reported Metabolic Hyperlipidemia Musc/[facility] Lower Back Pain Neuropsych 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) Anesthetic Plan ASA status: 3 Risk of > 500 ml blood loss (7ml/kg in children): No Medications/Allergies Home Medications ?Medication ?Instructions ?Recorded ?Confirmed ?Last Taken ?Type acetaminophen 650 mg 650 mg PO Q8H PRN pain #90 tabs 09/12/22 07/07/25 Unknown Rx tablet,extended release aspirin 81 mg tablet,delayed 81 mg PO DAILY #90 tabs 05/21/24 07/07/25 07/07/25 Rx release atorvastatin 40 mg tablet 40 mg PO QAM hyperlipidemia #90 09/18/24 07/07/25 07/07/25 Rx tabs losartan 100 mg tablet 100 mg PO DAILY #90 tabs 10/20/24 07/07/25 07/07/25 Rx metoprolol succinate 50 mg 50 mg PO DAILY #90 tabs 10/20/24 07/13/25 07/13/25 Rx tablet,extended release 24 hr 50 mg amlodipine 10 mg tablet 10 mg PO DAILY #90 tabs 02/26/25 07/13/25 07/13/25 Rx 10 mg albuterol sulfate 90 mcg/actuation 2 puff inhalation QID #8.5 grams 05/21/25 07/07/25 07/07/25 Rx aerosol inhaler (Ventolin HFA) tadalafil 5 mg tablet (Cialis) 5 mg PO DAILY #30 tabs 05/21/25 07/07/25 07/07/25 Rx hydrocodone 7.5 mg-acetaminophen 1 tab PO Q12H PRN pain 30 days #60 06/11/25 07/07/25 07/07/25 Rx 325 mg tablet tabs clonidine HCl 0.1 mg tablet 0.2 mg PO TID 07/07/25 07/07/25 07/07/25 History hydrochlorothiazide 25 mg tablet 25 mg PO DAILY 07/07/25 07/07/25 07/07/25 History Allergies Allergy/AdvReac Type Severity Reaction Status Date / Time gabapentin Allergy Intermediate ami walker Verified 07/07/25 11:38 ry Current Medications Generic Name Dose Route Start Last Admin Trade Name Freq PRN Reason Stop Dose Admin Sodium Chloride 1,000 mls @ 15 mls/hr 07/13/25 08:58 07/13/25 09:22 Sodium Chloride 0.9% IV 07/14/25 08:57 15 mls/hr .Q24H PRN Administration COLONOSCOPY FLUIDS PFSH Anesthesia Medical History Shortness of breath Nicotine dependence, cigarettes, uncomplicated Hyperlipidemia, mixed Lumbar stenosis with neurogenic claudication Bilateral lower extremity chronic pain; referral to PT 12.24 Pain management contract signed signed 10.20.24 [facility] Encounter for chronic pain management hydrocodone chronic back pain; legacy patient Chronic midline low back pain without sciatica CKD (chronic kidney disease) stage 3, GFR 30-59 ml/min Erectile dysfunction Hypertriglyceridemia Obesity (BMI 30.0-34.9) History of methamphetamine use -UDS positive for methamphetamines; denies use; previously positive -could be contributing to hypertensive emergency Hypertension Surgical History Hx of unilateral orchiectomy Right; for benign tumor Family History Mother Diabetes mellitus, type 2 Father Hypertension Other CAD (coronary artery disease) Diabetes Social History Smoking and tobacco/nicotine status: never used tobacco/nicotine Alcohol intake: current Alcohol intake frequency: holidays/special occasions only Substance/Drug Use: former Date of last use: 2019 meth; Former substance use details: meth--no injection; Household members: children Marital status: Number of children: 4 Highest education level completed: Associate Degree: Academic Program Current occupational status: employed 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 Data Anesthesia Cardiac Studies: Echocardiogram Ultrasound 12/12/19
--- NOTE | 2025-07-13 10:16 | P.HP_ITS ---
Same Day Surgery H&P Indication for Procedure/HPI DATE OF PROCEDURE: July 13, 2025 CHIEF COMPLAINT/INDICATIONFOR SURGICAL PROCEDURE: screening colonoscopy PREOP DIAGNOSIS: screening colonoscopy PLANNED PROCEDURE: Operation Date: 07/13/25 10:15 Proposed Procedures p Colonoscopy 53489 G0121 Z12.11(Not Applicable) - Francis Coronel MD Medications/Allergies* Home Medications ?Medication ?Instructions ?Recorded ?Confirmed ?Type clonidine HCl 0.1 mg tablet 0.2 mg PO TID 07/07/2501/26 History hydrochlorothiazide 25 mg tablet 25 mg PO DAILY 07/07/25 History Allergies/Adverse Reactions Allergy/AdvReac Type Severity Reaction Status Date / Time gabapentin Allergy Intermediate ami walker Verified 07/07/25 11:38 ry Current Medications: Generic Name Dose Route Start Last Admin Trade Name Freq PRN Reason Stop Dose Admin Sodium Chloride 1,000 mls @ 15 mls/hr 07/13/25 08:58 07/13/25 09:22 Sodium Chloride 0.9% IV 07/14/25 08:57 15 mls/hr .Q24H PRN Administration COLONOSCOPY FLUIDS Pertinent History/Comorbid Conditions* Medical History (Updated 05/21/25 @ 16:19 by Dede Fuller MD) Shortness of breath Nicotine dependence, cigarettes, uncomplicated Hyperlipidemia, mixed Lumbar stenosis with neurogenic claudication Bilateral lower extremity chronic pain; referral to PT 12.24 Pain management contract signed signed 10.20.24 [facility] Encounter for chronic pain management hydrocodone chronic back pain; legacy patient Chronic midline low back pain without sciatica CKD (chronic kidney disease) stage 3, GFR 30-59 ml/min Erectile dysfunction Hypertriglyceridemia Obesity (BMI 30.0-34.9) History of methamphetamine use -UDS positive for methamphetamines; denies use; previously positive -could be contributing to hypertensive emergency Hypertension Surgical History (Updated 10/20/24 @ 08:38 by Dede Fuller MD) Hx of unilateral orchiectomy Right; for benign tumor Family History (Updated 10/20/24 @ 08:37 by Dede Fuller MD) Diabetes Diabetes mellitus, type 2 Mother CAD (coronary artery disease) Hypertension Father Social History Smoking and tobacco/nicotine status: never used tobacco/nicotine Alcohol intake: current Alcohol intake frequency: holidays/special occasions o nly Substance/Drug Use: former Date of last use: 2019 meth; Former substance use details: meth--no injection; Household members: children Marital status: Number of children: 4 Highest education level completed: Associate Degree: Academic Program Current occupational status: employed 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 Pertinent Exam Findings alert, oriented x 3, clear to auscultation bilaterally, regular rate & rhythm and procedure specific exam findings abdomen soft, nt, nd Recommendations Risks and benefits of procedure reviewed and Patient/family agree to proceed Surgery/Procedure today Coding Level of Care Code Acute Code for Chg Fwd
[2025-07-13 10:36] VITALS: BP 104/72; PULSE 81; RESP 18; TEMP 36.1; O2SAT 99
[2025-07-13 10:53] VITALS: BP 110/85; PULSE 64; RESP 18; O2SAT 100
--- NOTE | 2025-07-13 11:10 | ANE.PACU2 ---
Inpatient post-anesthesia follow up: Airway intact: Yes Vital signs: Temperature 97 F Pulse Rate 64 Respiratory Rate 18 Blood Pressure 110/85 Pulse Oximetry 100 Oxygen Delivery Me thod Room Air Oxygen Flow Rate Fraction of Inspir ed Oxygen Hydration adequate: Yes Nausea and vomiting: No Pain level: 1 Mental status: Baseline
== END 2025-07-13 11:10 | disposition home or self-care (01) ==
PROVIDERS: PCP Family Medicine; Visit Provider Student in an Organized Health Care Education/Training Program
PROC: 0DJD8ZZ Inspection of Lower Intestinal Tract, Via Natural or Artificial Opening Endoscopic (ICD-10-PCS; CPT 45378; principal; 2025-07-13 10:15)
DX: Z12.11 Encounter for screening for malignant neoplasm of colon (principal); F17.210 Nicotine dependence, cigarettes, uncomplicated; E66.9 Obesity, unspecified; Z68.35 Body mass index [BMI] 35.0-35.9, adult; I12.9 Hypertensive chronic kidney disease with stage 1 through stage 4 chronic kidney disease, or unspecified chronic kidney disease; N18.30 Chronic kidney disease, stage 3 unspecified; E78.1 Pure hyperglyceridemia; E78.2 Mixed hyperlipidemia; J44.9 Chronic obstructive pulmonary disease, unspecified; Z79.82 Long term (current) use of aspirin
CPT/HCPCS: 45378; J2704; J7030; J9999

== ENCOUNTER 2025-07-23 07:05 | Outpatient (CLI) | payer OTHER, SELFPAY ==
[2025-07-23 07:27] VITALS: PULSE 71; RESP 18; O2SAT 98
== END 2025-07-23 07:06 | disposition home or self-care (01) ==
PROVIDERS: PCP Family Medicine; Visit Provider Family Medicine
DX: R06.02 Shortness of breath (principal); R94.2 Abnormal results of pulmonary function studies
CPT/HCPCS: 94060; 94726; 94729

== ENCOUNTER 2025-09-06 15:23 | Outpatient (CLI) | payer OTHER, SELFPAY ==
--- NOTE | 2025-09-06 15:15 | MR_ITS ---
WS: [id number] MRI LUMBAR SPINE NONCONTRAST HISTORY: chronic back pain; R sciatica COMPARISON: 11/19/2022 TECHNIQUE: Sagittal and axial multisequence imaging is submitted. Normal lumbar alignment. Small amount of marrow edema in L5. Moderate narrowing of the L4-5 disc space. Conus terminates normally at L1-2 disc level. L1-L2: Mild facet joint arthritis. Mild bilateral foraminal narrowing, LEFT greater than RIGHT. L2-L3: Mild annular disc bulging with ligamentum flavum and facet arthritis. Mild bilateral foraminal stenosis. L3-L4: Mild annular disc bulging slightly asymmetric to the LEFT. Mild to moderate bilateral foraminal stenosis and facet arthritis. Similar to the prior study. L4-L5: Annular disc bulge with a large asymmetric disc protrusion extending greater to the RIGHT. There is deformity of the thecal sac and displacement of the nerve roots. There is disc contact on the traversing L5 nerve roots and exiting RIGHT L4 nerve root. Moderate central and RIGHT foraminal stenosis. Mild LEFT foraminal stenosis. No significant progression since the prior study. L5-S1: Annular disc bulging with a small fissure. Effacement of ventral thecal sac. Asymmetric disc bulging to the RIGHT. There is mild disc contact on the S1 nerve roots. Moderate RIGHT and mild LEFT foraminal stenosis. Disc contacts the exiting RIGHT L5 nerve root also. Paravertebral soft tissues are normal. MR/MR lumbar spine wo con* [id number] IMPRESSION: 1. No significant progression of disease or new disc protrusion since 3. 2. Large asymmetric disc protrusion at L4-5 extending greater to the RIGHT. Th ere is disc contacting the traversing L5 nerve roots and the exiting RIGHT L4 n erve root. Moderate central and RIGHT foraminal stenosis and mild LEFT foramina l stenosis. 3. Disc bulging asymmetric to the RIGHT. There is disc contact of the S1 nerve roots, RIGHT greater than LEFT. Moderate RIGHT and mild LEFT foraminal stenosi s. RIGHT foraminal disc contacting the exiting RIGHT L5 nerve root. 4. Mild bilateral foraminal stenosis at L1-2 and L2-3. 5. Mild to moderate foraminal stenosis at L3-4. 6. Moderate degenerative disc disease at L4-5.
== END 2025-09-06 15:24 | disposition home or self-care (01) ==
LOC: RAD 15:24
PROVIDERS: PCP Family Medicine; Visit Provider Family Medicine
DX: M47.816 Spondylosis without myelopathy or radiculopathy, lumbar region (principal); M51.360 Other intervertebral disc degeneration, lumbar region with discogenic back pain only; M48.061 Spinal stenosis, lumbar region without neurogenic claudication; Q05.7 Lumbar spina bifida without hydrocephalus
CPT/HCPCS: 72148

== ENCOUNTER 2025-10-07 07:49 | Observation (INO) | payer OTHER, SELFPAY ==
[2025-10-07] VITALS (61 sets, daily range): BP systolic 91–124; BP diastolic 51–84; PULSE 70–114; RESP 12–21; TEMP 36.2–36.6; O2SAT 92–97; BMI 35.4
--- NOTE | 2025-10-07 07:53 | ECG_ITS ---
[facility] Date: 2025-10-07 Pat Name: Nicholas Woody Department: Room: Gender: Male Progressive Care Unit Registered Nurse: : 1980 Requested By: Miguel Montiel Order Number: [id number] Erin MD: Bharati Lambert M.D. Measurements Intervals [place] Rate: 133 P: 0 [place]: 0 QRS: -21 QRSD: 93 T: 112 QT: 292 QTc: 436 Interpretive Statements ATRIAL FIBRILLATION WITH RAPID VENTRICULAR RESPONSE WITH ABERRANT CONDUCTION OR VENTRICULAR PREMATURE COMPLEXES BORDERLINE LEFT AXIS DEVIATION [QRS AXIS < -20] NONSPECIFIC ST & T-WAVE ABNORMALITY Compared to ECG 06/26/2023 11:45:01 Ventricular premature complex(es) now present Aberrant conduction of supraventricular beat(s) now present T-wave abnormality now present Sinus rhythm no longer present Electronically Signed On 10-08-2025 18:48:18 ORTHO RN by Bharati Lambert M.D. [email or web address]
--- NOTE | 2025-10-07 07:53 | W.ED.GENADLT ---
HPI - General Adult General: Chief complaint: Arrhythmia/Palpitations Stated complaint: new onset afib with rvr Time Seen by Provider: 10/07/25 07:52 History of Present Illness: 45-year-old male presents emergency room with complaint of rapid heart rate shortness of breath with exertion. This been going on the last couple of days he has not really had any chest pain he just feels like he is sluggish cannot catch his breath whenever he exerts himself he feels like he is more tired. Recently was diagnosed with asthma and was started on Symbicort and albuterol has been using the albuterol fairly regularly. He denies significant intake of energy drinks or coffee. No known history of arrhythmias. No known history of coronary artery disease. He does have a history of hypertension and is on multiple medications including beta-luiz. He has taken all of his medications regularly. Associated symptoms: Reports dyspnea and palpitations; Deny chest pain or rash Related Data Home Medications ?Medication ?Instructions ?Recorded ?Confirmed hydrochlorothiazide 25 mg tablet 25 mg PO DAILY 07/07/25 08/16/25 Previous Rx's ?Medication ?Instructions ?Recorded acetaminophen 650 mg 650 mg PO Q8H PRN pain #90 tabs 09/12/22 tablet,extended release atorvastatin 40 mg tablet 40 mg PO QAM hyperlipidemia #90 09/18/24 tabs losartan 100 mg tablet 100 mg PO DAILY #90 tabs 10/20/24 metoprolol succinate 50 mg 50 mg PO DAILY #90 tabs 10/20/24 tablet,extended release 24 hr aspirin 81 mg tablet,delayed 81 mg PO DAILY #90 tabs 07/14/25 release amlodipine 10 mg tablet 10 mg PO DAILY #90 tabs 07/19/25 tadalafil 5 mg tablet (Cialis) 5 mg PO DAILY #30 tabs 07/19/25 albuterol sulfate 90 mcg/actuation 2 puff inhalation QID #8.5 grams 08/05/25 aerosol inhaler (Ventolin HFA) clonidine HCl 0.1 mg tablet See Rx Instructions .Route 08/10/25 .COMPLEX #180 tabs diazepam 10 mg tablet (Valium) 10 mg PO ONCE 1hr prior to MRI #1 08/16/25 tab inhalational spacing device (Space #1 ea 08/16/25 Chamber) tizanidine 4 mg tablet 4 mg PO BID PRN muscle spasticity 09/06/25 #180 tabs hydrocodone 7.5 mg-acetaminophen 1 tab PO Q12H PRN pain 30 days #60 09/13/25 325 mg tablet tabs budesonide-formoterol HFA 160 2 puff inhalation BID #10.2 grams 10/05/25 mcg-4.5 mcg/actuation aerosol inhaler (Symbicort) Allergies Allergy/AdvReac Type Severity Reaction Status Date / Time gabapentin Allergy Intermediate ami walker Verified 08/16/25 15:28 ry Review of Systems Const: Denies: fever(s) or chills Card: Reports: palpitations and dyspnea on exertion; Denies: chest pain, edema or swelling of feet/ankles Resp: Reports: dyspnea GI: Denies: abdominal pain : Denies: dysuria, urinary frequency or urinary urgency Musc: Denies: neck pain or back pain Skin/Breast: Denies: rash PFSH ED PFSH: Medical History Moderate persistent asthma without complication PFTs done [facility] Nicotine dependence, cigarettes, uncomplicated Hyperlipidemia, mixed Lumbar stenosis with neurogenic claudication Bilateral lower extremity chronic pain; completed PT 10/27 Pain management contract signed signed 10.20.24 [facility] Encounter for chronic pain management hydrocodone chronic back pain; legacy patient Chronic midline low back pain without sciatica CKD (chronic kidney disease) stage 3, GFR 30-59 ml/min Erectile dysfunction Hypertriglyceridemia Obesity (BMI 30.0-34.9) History of methamphetamine use -UDS positive for methamphetamines; denies use; previously positive -could be contributing to hypertensive emergency Hypertension Surgical History Hx of colonoscopy 9..25 normal; repeat 10 yrs Hx of unilateral orchiectomy Right; for benign tumor Family History Mother Diabetes mellitus, type 2 Father Hypertension Other CAD (coronary artery disease) Diabetes Social History Smoking and tobacco/nicotine status: current every day tobacco/nicotine user cigarettes [ Other cigarette details: was smoking more but now 2 cigs per day] Alcohol intake: current Alcohol intake frequency: holidays/special occasions only Substance/Drug Use: former Date of last use: 2019 meth; Former substance use details: meth--no injection; Household members: children Marital status: Number of children: 4 Highest education level completed: Associate Degree: Academic Program Current occupational status: employed 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 [employer] Physical Exam Const: GENERAL APPEARANCE: cooperative ORIENTATION/CONSCIOUSNESS: Yes awake, Yes oriented to person, Yes oriented to place and Yes oriented to time HENMT: COMMON NORMALS: normocephalic, atraumatic and hearing grossly normal bilaterally HEAD & SCALP: normocephalic and atraumatic Resp: COMMON NORMALS: normal respiratory effort, No retractions, No use of accessory muscles and clear to auscultation bilaterally AUSCULTATION: clear to auscultation bilaterally Cardio: COMMON NORMALS: No murmurs present (Cardio) RATE: tachycardic RHYTHM: abnormal rhythm irregularly irregular GI: COMMON NORMALS: Soft to palpation and No hepatosplenomegaly present AUSCULTATION: Yes normoactive bowel sounds PALPATION: Yes Soft to palpation, No Tenderness to palpation present (GI), No Guarding due to palpation present (GI) and Yes No hepatosplenomegaly present Extremity: COMMON NORMALS: normal to inspection, capillary refill normal, no clubbing, cyanosis or edema, no calf tenderness and no pedal edema Neuro: SENSORIUM/ORIENTATION: Yes oriented to person, Yes oriented to place and Yes oriented to time Skin: COMMON NORMALS: no rashes or lesions noted GENERAL SKIN EXAM: no rashes or lesions noted Course Vital Signs: Vital signs: Vital Signs Temperature 97.8 F 10/07/25 07:59 Pulse Rate 70 10/07/25 08:58 Respiratory Rate 16 10/07/25 08:58 Blood Pressure 100/51 10/07/25 08:58 Pulse Oximetry 97 10/07/25 08:58 Oxygen Delivery Me thod Room Air 10/07/25 08:58 MDM - General Adult Medical Decision Making Medical decision making Social determinants: None I reviewed the patient's medical record. I reviewed the patient's current home meds. Alternate historians: None Differential diagnosis: New onset A-fib, acute coronary syndrome, side effect medications Lab Review: No significant lab abnormalities. Creatinine is 1.7 his baseline appears to be generally at 2's with slightly improved initial troponin slightly elevated second troponin pending Imaging: Normal chest x-ray no pleural effusions no infiltrates no cardiomegaly Assessment of risk Level of risk: [Moderate] Hospitalization considerations: Admission for new onset A-fib for rate control and further evaluation Reexamination: Patient now bradycardic titrating off of Cardizem. He is not having any shortness of breath or chest discomfort at this time. Lung sounds remain clear Assessment and plan: Admit for new onset atrial fibrillation rate control and management of medications. He did take his metoprolol this morning and responded well to the Cardizem concerned about discharging home with new medications as his blood pressure was already quite soft. He will need monitoring as well as further workup and evaluation due to his new onset atrial fibrillation. Discussed with hospitalist orders written Lab Data 10/07/25 08:31 10/07/25 08:31 Radiology Impressions Chest X-Ray 10/07/25 09:32 IMPRESSION: 1. No acute cardiopulmonary finding. Laboratory Results WBC 6.77 10^3/uL (3.29-11.43) 10/07/25 08:31 RBC 5.37 10^6/uL (3.85-5.65) 10/07/25 08:31 Hgb 14.90 g/dL (11.27-16.99) 10/07/25 08:31 Hct 45.5 % (37-53) 10/07/25 08:31 MCV 84.7 fl (82-101) 10/07/25 08:31 MCH 27.7 pg (27-33) 10/07/25 08:31 MCHC 32.7 g/dL (30-55) 10/07/25 08:31 RDW 13.9 % (12.1-15.1) 10/07/25 08:31 Plt Count 212 10^3/cmm (157-399) 10/07/25 08:31 MPV 9.2 fL (7.4-10.4) 10/07/25 08:31 Neut % (Auto) 52.3 % 10/07/25 08:31 Lymph % (Auto) 36.0 % 10/07/25 08:31 Harper % (Auto) 8.0 % 10/07/25 08:31 Eos % (Auto) 2.5 % 10/07/25 08:31 Baso % (Auto) 0.9 % 10/07/25 08:31 Neut # (Auto) 3.54 10^3/uL (1.8-7.7) 10/07/25 08:31 Lymph # (Auto) 2.4 10^3/uL (0.8-4.8) 10/07/25 08:31 Harper # (Auto) 0.5 10^3/uL (0.2-0.9) 10/07/25 08:31 Eos # (Auto) 0.2 10^3/uL (0.0-0.8) 10/07/25 08:31 Baso # (Auto) 0.1 10^3/uL (0.0-0.1) 10/07/25 08:31 Nucleated RBC % (auto) 0 % 10/07/25 08:31 Nucleated RBCs # 0.0 /100WBC 10/07/25 08:31 Sodium 138 mmol/L (136-145) 10/07/25 08:31 Potassium 3.7 mmol/L (3.5-5.1) 10/07/25 08:31 Chloride 104 mmol/L (98-107) 10/07/25 08:31 Carbon Dioxide 24 mmol/L (22-29) 10/07/25 08:31 Anion Gap 13.7 (5-19) 10/07/25 08:31 BUN 28 mg/dL (6-20) H 10/07/25 08:31 Creatinine 1.7 mg/dL (0.7-1.2) H 10/07/25 08:31 GFR Calculation 53.0 mL/min (90-130) L 10/07/25 08:31 Glucose 157 mg/dL (65-115) H 10/07/25 08:31 Calculated Osmolality 295 mOsm/kg (285-295) 10/07/25 08:31 Calcium 8.9 mg/dL (8.5-10.5) 10/07/25 08:31 Magnesium 2.0 mg/dL (1.7-2.3) 10/07/25 08:31 Total Bilirubin 0.4 mg/dL (0.15-1.2) 10/07/25 08:31 AST 19 U/L (0-40) 10/07/25 08:31 ALT 14 U/L (0-41) 10/07/25 08:31 Alkaline Phosphatase 85 U/L (40-130) 10/07/25 08:31 Troponin T Baseline 20 ng/L (0-15) H 10/07/25 08:31 Total Protein 6.5 g/dL (6.6-8.7) L 10/07/25 08:31 Albumin 4.1 g/dL (3.5-5.2) 10/07/25 08:31 Globulin 2.4 g/dL (1.3-4.6) 10/07/25 08:31 TSH 1.01 uIU/mL (0.27-4.20) 10/07/25 08:31 All radiology interpretation(s) finalized by discharge EKG Data EKG 1: I personally reviewed and interpreted this EKG as follows: Interpretation: EKG 10/07/2025 7:53 AM atrial fibrillation rapid ventricular sponsor at a rate of [address] QTc [address] changes noted. Compared to EKG from 06/26/2023 atrial fibrillation is new previous rhythm was sinus rhythm with a rate of 79. Computer generated interpretation: Chest X-Ray 10/07/25 09:32 IMPRESSION: 1. No acute cardiopulmonary finding. EKG 2: I personally reviewed and interpreted this EKG as follows: Interpretation: EKG 10/07/2025 8:44 AM atrial fibrillation rate of 69. QTc [address] changes noted. Compared to EKG done earlier same day rate is now well-controlled. Computer generated interpretation: Chest X-Ray 10/07/25 09:32 IMPRESSION: 1. No acute cardiopulmonary finding. Discharge Plan Discharge Patient Disposition: Admitted As Inpatient Clinical Impression: Atrial fibrillation with rapid ventricular response, Hypertension, New onset atrial fibrillation Condition: Stable Coding Level of Care Code ED Email Production Specialist for Mateusz Estevez
--- OUTSIDE RECORDS SUMMARY | 2025-10-07 07:54 | XMS_ITS | Clinical Summary ---
Author Organization Formerly [facility] Facility Address [address] [address] Care Team Providers Care Air Brush Artist Name Role Phone Gonzalo Duarte MD Primary Care Provider Unavailab le Allergies No known active allergies Medications amLODIPine (NORVASC) 10 MG tablet Take 10 mg by mouth 1 (one) time each day Active cloNIDine (CATAPRES) 0.2 MG tablet Take 0.2 mg by mouth 3 times a day Active hydrALAZINE (APRESOLINE) 100 MG tablet Take 100 mg by mouth 2 (two) times a day Active hydroCHLOROthiazi de (HYDRODIURIL) 25 MG tablet Take 25 mg by mouth 1 (one) time each day Active isosorbide mononitrate (IMDUR) 30 MG 24 hr tablet Take 30 mg by mouth 1 (one) time each day Do not crush or chew. Active lisinopril (PRINIVIL,ZESTRIL ) 20 MG tablet Take 20 mg by mouth 2 (two) times a day Active metoprolol tartrate (LOPRESSOR) 100 MG tablet Take 100 mg by mouth 2 (two) times a day Active spironolactone (ALDACTONE) 25 MG tablet Take 12.5 mg by mouth 1 (one) time each day Active Active Problems Problem Noted Date Diagnosed Date Stage 3b chronic kidney disease 06/27/2021 Essential (primary) hypertension 06/27/2021 Overview (06/27/2021): Chronically poorly controlled, with history of hypertensive crisis Obesity 06/27/2021 Social History Tobacco Use Types Packs/Day Years Used Date Smoking Tobacco: Every Day Smokeless Tobacco: Never Alcohol Use Standard Drinks/Week Comments Yes 0 (1 standard drink = 0.6 oz pur e alcohol) occasionally Sex and Gender Information Value Date Recorded Sex Assigned at Not on file Legal Sex Male 10:28 AM EDT Gender Identity Not on file Sexual Orientation Not on file Plan of Treatment Health Maintenance Due Date Last Done Comments Hepatitis B Vaccine (1 of 3 - 19+ 3-dose series) 01/13 Pneumococcal Vaccine: Peds ( 0 to 5 Years) and At-Risk Patients (6 to 49 Years) (1 of 2 - PCV) 01/13/1999 Influenza Vaccine (#1) 2025 Care Teams Air Brush Artist Relationship Specialty Start Date End Date Gonzalo Duarte MD PCP - General Family Medicine 02/23/21
--- OUTSIDE RECORDS SUMMARY | 2025-10-07 07:54 | XMS_ITS | Clinical Summary ---
[facility] Address [address] [facility] Attn: Epic Prelude ADT [place] MÉ[place]DEZ [id number] Care Team Providers Care Pepper Cutter Name Role Phone Gonzalo Duarte MD Primary Care Provider + Allergies No known active allergies Medications metoprolol tartrate (LOPRESSOR) 25 mg tablet Take 25 mg by mouth 2 times daily. Active hydroCHLOROthiaz cosmo 25 mg tablet Take 25 mg by mouth 2 times daily. Active cloNIDine HCL (CATAPRES) 0.2 mg tablet Take 0.2 mg by mouth 3 times daily. Active atorvastatin (LIPITOR) 40 mg tablet Take 40 mg by mouth daily. Active lisinopriL (PRINIVIL) 20 mg tablet Take 20 mg by mouth daily. Active Active Problems Problem Noted Date Diagnosed Date Acute viral syndrome 12/13/2022 Social History Tobacco Use Types Packs/Day Years Used Date Smoking Tobacco: Every Day Cigarettes Smokeless Tobacco: Never Alcohol Use Standard Drinks/Week Comments Not Currently 0 (1 standard drink = 0.6 oz pur e alcohol) Sex and Gender Information Value Date Recorded Sex Assigned at Not on file Legal Sex Male 1:11 AM SUPERVISOR HARDBOARD Gender Identity Not on file Sexual Orientation Not on file Last Filed Vital Signs Vital Sign Reading Time Taken Comments Blood Pressure 127/83 12/13/2022 9:51 AM SUPERVISOR HARDBOARD Pulse 106 11/27/2018 11:04 AM SUPERVISOR HARDBOARD Temperature 36.2 C (97.1 F) 12/13/2022 8:54 AM SUPERVISOR HARDBOARD Respiratory Rate 18 12/13/2022 9:51 AM SUPERVISOR HARDBOARD Oxygen Saturation 98% 12/13/2022 9:51 AM SUPERVISOR HARDBOARD Inhaled Oxygen Concentration - - Weight 129.4 kg (285 lb 3.2 oz) 12/13/2022 8:54 AM SUPERVISOR HARDBOARD Height 193 cm (6' 4 ) 12/13/2022 8:54 AM SUPERVISOR HARDBOARD Body Mass Index 34.72 12/13/2022 8:54 AM SUPERVISOR HARDBOARD Plan of Treatment Health Maintenance Due Date Last Done Comments DTAP/TDAP/TD VACCINES (1 - Tdap) 01/13/1999 HEPATITIS B VACCINES (1 of 3 - 19+ 3-dose series) 01/02 HPV VACCINES (1 - 3-dose SCDM series) 01/13/2007 COLORECTAL SCREENING 01/13/2025 Colorectal Cancer Screening 01/13/2025 FIT-DNA Q 3 years 01/13/2025 FIT/FOBT Q 1 year 01/13/2025 Flex Sig/CT Colonography Q 5 years 01/13/2025 INFLUENZA VACCINE (#1) 2025 Care Teams Pepper Cutter Relationship Specialty Start Date End Date Gonzalo Duarte MD [address] [place] [phone] PCP - General Family Practice 02/11/22
--- OUTSIDE RECORDS SUMMARY | 2025-10-07 07:54 | XMS_ITS | Encounter Summary ---
Author Organization [facility] Address [address] [place] [address] Phone Care Team Providers Care Mortgage Field Inspector Name Role Phone Gonzalo Duarte MD Primary Care Provider Unavailab le Encounter Details Date Type Department Care Team (Late st Contact Info) Description 02/19/2020 Orders Only [facility] [address] [place] [address] Acute kidney failure, not otherwise specified (HCC) Social History Tobacco Use Types Packs/Day Years Used Date Smoking Tobacco: Never Assessed Sex and Gender Information Value Date Recorded Sex Assigned at Not on file Legal Sex Male 10:28 AM EDT Gender Identity Not on file Sexual Orientation Not on file documented as of this encounter Plan of Treatment Not on file documented as of this encounter Visit Diagnoses Diagnosis Acute kidney failure, not otherwise specified (HCC) documented in this encounter Care Teams Mortgage Field Inspector Relationship Specialty Start Date End Date Gonzalo Duarte MD PCP - General Family Medicine 02/23/21 documented as of this encounter
--- OUTSIDE RECORDS SUMMARY | 2025-10-07 07:54 | XMS_ITS | Encounter Summary ---
Author Organization [facility] Address [address] [place] [address] Phone Care Team Providers Care Client Relationship Manager Name Role Phone Gonzalo Duarte MD Primary Care Provider Unavailab le Encounter Details Date Type Department Care Team (Late st Contact Info) Description 02/23/2021 Orders Only [email or web address] [address] [place] [address] Chronic kidney disease, stage 4 (severe) (HCC) Social History Tobacco Use Types Packs/Day [...] as of this encounter Visit Diagnoses Diagnosis Chronic kidney disease, stage 4 (severe) (HCC) documented in this encounter Care Teams Client Relationship Manager Relationship Specialty Start Date End Date Gonzalo Duarte MD PCP - General Family Medicine 02/23/21 documented as of this encounter
[2025-10-07] MEDS: dilTIAZem 5 mg/mL SDV 5 mL 20 MG IVP (08:08)
[2025-10-07] MEDS: DILTIAZEM HCL/D5W 125 MG/125 ML BAG IV (08:20)
[2025-10-07 08:37] LABS: Hematocrit 45.5 % (37-53); Hemoglobin 14.90 g/dL (11.27-16.99); Mean Corpuscular HGB Conc 32.7 g/dL (30-55); Mean Corpuscular Hemoglobin 27.7 pg (27-33); Mean Corpuscular Volume 84.7 fl (82-101); Nucleated Red Blood Cells % 0 %; Platelet Count 212 10^3/cmm (157-399); Red Blood Count 5.37 10^6/uL (3.85-5.65); White Blood Count 6.77 10^3/uL (3.29-11.43)
--- NOTE | 2025-10-07 08:44 | ECG_ITS ---
[facility] Pat Name: Nicholas Woody Department: Room: Gender: Male Information Systems Security Manager: : 1980 Requested By: Miguel Montiel Order Number: [id number] Erin MD: Bharati Lambert M.D. Measurements Intervals [place] Rate: 69 P: 0 NE: 0 QRS: 18 QRSD: 91 T: 148 QT: 355 QTc: 381 Interpretive Statements ATRIAL FIBRILLATION NONSPECIFIC T-WAVE ABNORMALITY Compared to ECG 10/07/2025 07:53:09 Ventricular premature complex(es) no longer present Aberrant conduction of supraventricular beat(s) no longer present T-wave abnormality still present Electronically Signed On 10-08-2025 18:48:15 CUTTING TOOL SHARPENER by Bharati Lambert M.D. [id number]
[2025-10-07 08:56] LABS: Troponin(5th) Baseline 20 ng/L (0-15)
[2025-10-07 08:57] LABS: Alanine Aminotransferase 14 U/L (0-41); Albumin Level 4.1 g/dL (3.5-5.2); Alkaline Phosphatase 85 U/L (40-130); Anion Gap 13.7 (5-19); Aspartate Amino Transferase 19 U/L (0-40); Blood Urea Nitrogen 28 mg/dL (6-20); Calcium 8.9 mg/dL (8.5-10.5); Carbon Dioxide 24 mmol/L (22-29); Chloride 104 mmol/L (98-107); Globulin 2.4 g/dL (1.3-4.6); Glucose 157 mg/dL (65-115); Magnesium 2.0 mg/dL (1.7-2.3); Osmolality Calculated 295 mOsm/kg (285-295); Potassium 3.7 mmol/L (3.5-5.1); Sodium 138 mmol/L (136-145); Total Protein 6.5 g/dL (6.6-8.7)
--- NOTE | 2025-10-07 09:32 | XR_ITS ---
WS: [id number] Exam: XR chest 1V portable [id number] Date/Time of Exam: 10/07/2025 9:33 AM Reason For Exam: New onset A-fib Comparison 05/21/2025. Lungs are fully inflated and clear. Normal cardiomediastinal silhouette for technique. No pleural effusion. Bony structures are intact. XR/XR chest 1V portable [id number] IMPRESSION: 1. No acute cardiopulmonary finding.
[2025-10-07 09:48] LABS: Thyroid Stimulating Hormone 1.01 uIU/mL (0.27-4.20)
--- NOTE | 2025-10-07 10:02 | PM.HP ---
Providers/Chief Complaint Primary Care Provider: Dede Fuller MD Chief Complaint: new onset afib with rvr History of Present Illness Nicholas Woody Jr is a 45 year old male with PMH of HTN, HLD, CKD 3A, obesity, asthma, chronic lumbar pain, prior methamphetamine use. Patient presented to the ED on 10/07/2025 out of concern for palpitations and exertional dyspnea. Reports experiencing palpitations night prior and noted exertional dyspnea in the morning. States he could not breathe at all and felt completely drained with no energy. 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 Notes additional symptoms of hot flashes, blurry vision and dizziness. Denies fever, chills, syncope, orthopnea, PND and lower extremity edema. No abdominal pain, nausea, vomiting or diarrhea. Recently diagnosed with asthma and started on bronchodilators. No prior history of arrhythmia/dysrhythmia. Snores, has not been previously evaluated for sleep apnea. In ED patient was found to have AFIB RVR. Received diltiazem bolus and started on diltiazem gtt. Patient being admitted for stabilization and management of new onset atrial fibrillation. Review of Systems General: Reports: 10 or more systems reviewed and unremarkable except in HPI and below Medications/Allergies Home Medications ?Medication ?Instructions ?Recorded ?Confirmed ?Last Taken ?Type acetaminophen 650 mg 650 mg PO Q8H PRN pain #90 tabs 09/12/22 10/07/25 Unknown Rx tablet,extended release losartan 100 mg tablet 100 mg PO DAILY #90 tabs 10/20/24 10/07/25 10/07/25 Rx metoprolol succinate 50 mg 50 mg PO DAILY #90 tabs 10/20/24 10/07/25 10/07/25 Rx tablet,extended release 24 hr hydrochlorothiazide 25 mg tablet 25 mg PO QAM blood pressure 07/07/25 10/07/25 10/07/25 History aspirin 81 mg tablet,delayed 81 mg PO DAILY #90 tabs 07/14/25 10/07/25 10/07/25 Rx release amlodipine 10 mg tablet 10 mg PO DAILY #90 tabs 07/19/25 10/07/25 10/07/25 Rx tadalafil 5 mg tablet (Cialis) 5 mg PO DAILY #30 tabs 07/19/25 10/07/25 Unknown Rx albuterol sulfate 90 mcg/actuation 2 puff inhalation QID #8.5 grams 08/05/25 10/07/25 10/06/25 Rx aerosol inhaler (Ventolin HFA) inhalational spacing device (Space #1 ea 08/16/25 10/07/25 Unknown Rx Chamber) tizanidine 4 mg tablet 4 mg PO BID PRN muscle spasticity 09/06/25 10/07/25 Unknown Rx #180 tabs hydrocodone 7.5 mg-acetaminophen 1 tab PO Q12H PRN pain 30 days #60 09/13/25 10/07/25 10/06/25 Rx 325 mg tablet tabs budesonide-formoterol HFA 160 2 puff inhalation BID #10.2 grams 10/07/25 Unknown Rx mcg-4.5 mcg/actuation aerosol inhaler (Symbicort) clonidine HCl 0.1 mg tablet 0.2 mg PO TID blood pressure 10/07/25 10/07/25 10/07/25 History Allergies Allergy/AdvReac Type Severity Reaction Status Date / Time gabapentin Allergy Intermediate ami walker Verified 08/16/25 15:28 ry PFSH Acute PFSH: Medical History Moderate persistent asthma without complication PFTs done .2024 [facility] Nicotine dependence, cigarettes, uncomplicated Hyperlipidemia, mixed Lumbar stenosis with neurogenic claudication Bilateral lower extremity chronic pain; completed PT 10/27 Pain management contract signed signed 10.20.24 [facility] Encounter for chronic pain management hydrocodone chronic back pain; legacy patient Chronic midline low back pain without sciatica CKD (chronic kidney disease) stage 3, GFR 30-59 ml/min Erectile dysfunction Hypertriglyceridemia Obesity (BMI 30.0-34.9) History of methamphetamine use -UDS positive for methamphetamines; denies use; previously positive -could be contributing to hypertensive emergency Hypertension Surgical History Hx of colonoscopy 9 normal; repeat 10 yrs Hx of unilateral orchiectomy Right; for benign tumor Family History Mother Diabetes mellitus, type 2 Father Hypertension Other CAD (coronary artery disease) Diabetes Social History Smoking and tobacco/nicotine status: current every day tobacco/nicotine user cigarettes [ Other cigarette details: was smoking more but now 2 cigs per day] Alcohol intake: current Alcohol intake frequency: holidays/special occasions only Substance/Drug Use: former Date of last use: 2019 meth; Former substance use details: meth--no injection; Household members: children Marital status: Number of children: 4 Highest education level completed: Associate Degree: Academic Program Current occupational status: employed 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 Obese habitus. Neuro: Awake and alert. Oriented x3. No facial asymmetry, unilateral weakness or speech deficits. Head: NC/AT Eyes: PERRLA, EOMI Ears: Normal external ears. Hearing intact to normal voice. Nose: Normal external nose. No epistaxis. Throat: MMM Respiratory: Diminished. No accessory muscle use. On room air. Cardiovascular: Irregular. No murmur. Extremities: No edema bilaterally Gastrointestinal: Soft. NT. ND. +BS Genitourinary: No crowder catheter Musculoskeletal: Moves all extremities. Skin: No obvious bruising or open lesions. Data 10/07/25 08:31 10/07/25 08:31 Other Labs: I have personally reviewed below listed labs that were done in ED on presentation. Labs 10/07/2025 0831 Hemogram WBC 6.77 RBC 5.37 PLT 212 HGB 14.9 HCT 45.5 Chemistry Na 138 K 3.7 Mg 2.0 Cl 104 Ca 8.9 Glu 157 CO2 24 AG 13.7 Renal BUN 28 Cr 1.7 eGFR 53 Liver AST 19 ALT 14 ALP 85 T.Bili 0.4 Alb 4.1 T.Protein 6.5 Thyroid TSH 1.01 Cardiac HS Trop 20 CXR: Radiologist's impression: Exam: XR chest 1V portable [id number] Date/Time of Exam: 10/07/2025 9:33 AM Reason For Exam: New onset A-fib Comparison 05/21/2025. Lungs are fully inflated and clear. Normal cardiomediastinal silhouette for technique. No pleural effusion. Bony structures are intact. Impression: No acute cardiopulmonary finding. EKG 1: My Interpretation: EKG #1, 10/07/25 0753: AFIB RVR (v-rate 133) EKG 2: My Interpretation: EKG #2, 10/07/25 0844: AFIB w/ controlled ventricular rate of 69 A&P Assessment and plan 1. Atrial fibrillation with rapid ventricular response: 2. CKD (chronic kidney disease) stage 3, GFR 30-59 ml/min: Plan: # New Onset AFIB RVR In ED received diltiazem 20 mg bolus and started on diltiazem gtt Rate now controlled, continues to be in AFIB TSH 1.01 - Continue diltiazem gtt - Echo - Maintain K >/ 4.0 and Mg >/ 2.0 - Start on eliquis 5 mg BID # CKD 3A Baseline Cr 1.7-2.1 Presenting Cr 1.7 mg/dL - renal function at baseline, continue trending - patient would benefit from outpatient nephrology referral for long-term management of his kidney disease # Hypotension Underlying hypertension at baseline In the setting of arrhythmia - Trend BP - HOLD home BP meds (amlodipine, losartan, HCTZ, clonidine) # Asthma without acute exacerbation - continue home bronchodilators VTE PPx SCDs, Lovenox PDMP PDMP Reviewed: Not Reviewed Attestations Medical Necessity Statement*: Patient admitted under observation status. Patient will require less than two midnights to manage new onset atrial fibrillation. Coding Level of Care Code 23517 Diagnoses Atrial fibrillation with rapid ventricular response I48.91 CKD (chronic kidney disease) stage 3, GFR 30-59 ml/min N18.30
[2025-10-07 10:41] LABS: Troponin 5 2HR 19.44 ng/L (0-15)
[2025-10-07 10:46] LABS: Troponin 5 2HR Delta -0.56 ABS# (0-10)
--- NOTE | 2025-10-07 12:56 | USCV_ITS ---
Nicholas Woody Age: 45 Gender: M : 1980 Exam Date: 10/07/2025 14:26 Ordering Phys: Isaac Levi NP Technologist: Exam Location: [place] Indication: afib BP: 108 / 82 HR: 72 Rhythm: Sinus Technical Quality: MEASUREMENTS (Male / Female) Normal Values 2D ECHO LV Diastolic Diameter PLAX 4.6 cm 4.2 - 5.9 / 3.9 - 5.3 cm IVS Diastolic Thickness 1.6 cm 0.6 - 1.0 / 0.6 - 0.9 cm IVS Systolic Thickness 2.3 cm LVPW Diastolic Thickness 1.5 cm 0.6 - 1.0 / 0.6 - 0.9 cm LVPW Systolic Thickness 1.9 cm LVOT Diameter 2.8 cm LV Ejection Fraction 2D Teich 65.5 % LV Ejection Fraction MOD 4C 71.7 % LV Ejection Fraction MOD 2C 72.6 % LV Ejection Fraction 2C AL 72.1 % LA Diameter 3.8 cm RA Systolic Volume 4C AL 48.2 ml RA Systolic Volume 4C MOD 44.2 ml Aorta at Sinotubular Diameter 3.7 cm M-MODE LA Ao Ratio MM 1.3 AV Cusp Separation MM 2.9 cm DOPPLER AV Peak Velocity 98.0 cm/s LVOT Peak Velocity 84.0 cm/s AV Area Cont Eq vti 7.4 cm squared AV Area Cont Eq pk 5.2 cm squared MV Area PHT 5.0 cm squared Mitral E to A Ratio 5.1 TV Peak Velocity 180.3 cm/s TR Peak Velocity 244.0 cm/s TR Peak Gradient 23.8 mmHg TV Peak E Velocity 99.0 cm/s PV Peak Velocity 78.5 cm/s FINDINGS Left Ventricle Normal left ventricular size and systolic function, EF 71%.mild left ventricular hypertrophy. No regional wall motion abnormalities. . Grade I/IV diastolic dysfunction (abnormal relaxation filling pattern), normal to mildly elevated filling pressures. Right Ventricle Normal right ventricular size and systolic function. Right Atrium Normal right atrial size. Left Atrium Normal left atrial size. IA Septum Normal appearance of the interatrial septum. Mitral Valve No gross abnormalities noted Aortic Valve No gross abnormalities noted Tricuspid Valve Trace tricuspid valve regurgitation. Estimated pulmonary artery peak systolic pressure 27 mm of Hg. Pulmonic Valve No gross abnormalities noted Pericardium No pericardial effusion. Aorta Normal aortic annulus size. IVC Normal inferior vena cava. CONCLUSIONS Normal left ventricular size and systolic function, EF 71%.mild left ventricular hypertrophy. No regional wall motion abnormalities. . Grade I/IV diastolic dysfunction (abnormal relaxation filling pattern), normal to mildly elevated filling pressures. Normal cardiac chamber sizes. Trace tricuspid valve regurgitation. Estimated pulmonary artery peak systolic pressure 27 mm of Hg. There is no pericardial effusion. There are no intracardiac masses. Compared to the study from 12/12/2019, the LV ejection fraction has improved from 50% to 70% Dr Bharati Lambert MD FAC (Electronically Signed) Final Date: 08 October 2025 00:14 S
--- NOTE | 2025-10-07 13:38 | ECG_ITS ---
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 Measurements Intervals [place] Rate: 87 P: 0 SD: 0 QRS: -5 QRSD: 98 T: -18 QT: 384 QTc: 464 Interpretive Statements ATRIAL FIBRILLATION WITH ABERRANT CONDUCTION OR VENTRICULAR PREMATURE COMPLEXES NONSPECIFIC ST & T-WAVE ABNORMALITY ABNORMAL RHYTHM ECG Compared to ECG 10/07/2025 12:19:53 Ventricular premature complex(es) now present Aberrant conduction of supraventricular beat(s) now present T-wave abnormality still present Electronically Signed On 10-08-2025 18:56:20 SET UP MOLD TECHNICIAN by Bharati Lambert M.D. [email or web address] [id number]
[2025-10-07 14:43] LABS: Troponin 5 6HR 18.88 ng/L (0-15)
[2025-10-07 15:01] LABS: Troponin 5 6HR Delta -1.12 ng/L (0-12)
[2025-10-08] VITALS (11 sets, daily range): BP systolic 115–145; BP diastolic 81–107; PULSE 62–86; RESP 14–18; TEMP 36.3–36.6; O2SAT 95–97; BMI 35.3
--- NOTE | 2025-10-08 10:08 | PM.PN ---
Subjective Subjective: 10/07/2025 The patient presented to the ED on 10/28 with concern of palpitations and exertional dyspnea. He reported experiencing intermittent palpitations earlier in the day, accompanied by shortness of breath and profound fatigue. Upon awakening that morning, he noted he could not breathe at all and felt completely drained of energy. 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 While performing job-related duties, he developed additional symptoms of hot flashes, blurry vision and dizziness. He denied fever, chills, syncope, chest pain, orthopnea, lower extremity edema, nausea, vomiting and diarrhea. Recently diagnosed with asthma and prescribed bronchodilators. He denies history of known arrhythmia. Notes loud snoring and has not been previously evaluated for obstructive sleep apnea. On arrival to the ED, patient was found to be in atrial fibrillation with rapid ventricular response. He received diltiazem (bolus + infusion). Converted to normal sinus rhythm at approximately 7 PM on 10/07/25. 10/08/2025 - Hospital Day 1 Patient seen in follow-up this morning. Reports feeling significantly improved compared to admission. Denies palpitations, chest pain, dizziness and dyspnea. Notes bruising to have improved. No new complaints. Patient made increase about his blood pressure medications and whether he should cut down on some of them. Patient remained in sinus rhythm overnight. At some point he was taken off the diltiazem drip. Started on Eliquis 5 mg BID. Echo pending to be done today. Medications: Medication Review Details: Today, I have personally reviewed below listed medications Hospital (scheduled) meds Apixaban 5 mg BID Albuterol 2.5 mg QID Budesonide 0.5 mg BID Diltiazem 125 mg in 125 mg IV (continuous drip) Hospital (prn) meds Albuterol 2.5 mg QID prn Tylenol 650 mg Q6H prn Ondansetron 4 mg IVP Q8H prn Med changes 10/08/2025 - Discontinued diltiazem gtt from JAN (no longer on gtt) - Restarted home med metoprolol succinate ER 50 mg daily - Restarted home clonidine per taper scale Vitals/I&O/Wt Last Vital Signs Temp 97.8 F 10/08/25 07:20 Pulse 74 10/08/25 08:16 Resp 16 10/08/25 08:00 BP 128/87 10/08/25 07:20 Pulse Ox 96 10/08/25 08:00 O2 Del Method Room Air 10/08/25 08:00 10/07/25 10/08/25 10/08/25 22:59 06:59 14:59 Intake Total 240 / 243.667 360 / 360 Balance 240 / 243.667 360 / 360 Weight last 48 hrs Weight 131.7 kg Weight 131.4 kg Weight 131.995 kg Physical Exam Narrative: Constitutional: NAD. Obese habitus. Neuro: Awake and alert. Oriented x3. No facial asymmetry, unilateral weakness or speech deficits. Head: NC/AT Eyes: PERRLA, EOMI Ears: Normal external ears. Hearing intact to normal voice. Nose: Normal external nose. No epistaxis. Throat: MMM Respiratory: Diminished. No accessory muscle use. On room air. Cardiovascular: Regular. No murmur. Extremities: No edema bilaterally Gastrointestinal: Soft. NT. ND. +BS Genitourinary: No crowder catheter Musculoskeletal: Moves all extremities. Skin: No obvious bruising or open lesions. Data 10/07/25 08:31 10/08/25 10:41 Other Labs: Labs for 10/08/2025 reviewed - No new am labs Echo: Radiologist's impression: Echocardiogram 10/07/2025 Conclusions: Normal left ventricular size and systolic function, EF 71%. Mild left ventricular hypertrophy. No regional wall motion abnormalities. Grade I/IV diastolic dysfunction (abnormal relaxation filling pattern), normal to mildly elevated filling pressures. Normal cardiac chamber sizes. Trace tricuspid valve regurgitation. Estimated pulmonary artery peak systolic pressure 27 mm of Hg. There is no pericardial effusion. There are no intracardiac masses. Compared to the study from 12/12/2019, the LV ejection fraction has improved from 50% to 70% Dr Bharati Lambert MD [facility] (Electronically Signed) Final Date: 08 October 2025 EKG's since admission (reviewed): My Interpretation: EKG #1, 10/07/2025 0753: AFIB w/ rapid ventricular rate (v-rate 133) EKG #2, 10/07/2025 0844: AFIB w/ controlled ventricular rate (v-rate 69) EKG #3, 10/07/2025 1338: AFIB w/ controlled ventricular rate (v-rate 87) EKG #4, 10/08/2025 1056: Sinus rhythm (v-rate 74). QTc 427. A&P Assessment and plan 1. New onset atrial fibrillation: 2. Other specified hypotension: 3. Primary hypertension: 4. Stage 3a chronic kidney disease: 5. Hyperglycemia: Plan: # New Onset AFIB RVR In ED received diltiazem 20 mg bolus and started on diltiazem gtt Rate controlled on the gtt, continues to be in AFIB Converted to SR ~ 1900 10/07/2025 Diltiazem gtt was discontinued at some point on 10/07/25 due to hypotension (SBP 90s, per record) 10/07 TSH 1.01 - Check BMP, Mg, NT-proBNP - Echo pending - 10/08 restart home metoprolol succinate 50 mg daily - 10/08 start on eliquis 5 mg BID (new med) - Maintain K >/ 4.0 and Mg >/ 2.0 - Will have patient walked around unit today to make sure he is not experiencing exertional dyspnea - Will need to have cardiology follow-up within one week of discharge # Primary Hypertension # Hypotension Underlying hypertension at baseline In the setting of arrhythmia Diltiazem drip was discontinued due to hypotension - Hypotension resolved, BP improved overnight trend over past 12 hours (since 10/07 2000): SBP 114-128 and DBP 72-87 - Restart BB (metoprolol succinate) per home dose - HOLD other home BP meds at this time (amlodipine, losartan, HCTZ, clonidine) # Hyperglycemia No diagnosis of diabetes. Per review of record, A1c in pre-diabetic range in 2020 (6.1% and 5.5%). Hx of CKD 3A w/ baseline Cr 1.7-2.1 (advanced for age) and HTN. FHx of DM. - Check A1c # CKD 3A Baseline Cr 1.7-2.1 Presenting Cr 1.7 mg/dL - Renal function at baseline, continue trending - Highly recommend establishing care with outpatient nephrology for management of his renal disease I have discussed this with patient in detail A nephrology referral is warranted for this patient based on multiple convergent risk factors and evidence of advanced renal disease. His baseline serum creatinine appears to be 1.7-2.1 mg/dL. -[place] descent, the population was significantly high risk of CKD progression due to genetic and co-morbidity related factors. He additionally has longstanding history of hypertension (on multiple BP meds), which is one of the leading causes of CKD progression. His blood sugars are currently elevated, and although he does not carry an official diagnosis of diabetes, he was pre-diabetic in 2020, and diabetes is a prevalent in his family. Family history also remarkable for ESRD (on dialysis) and his father, which increases his risk of hereditary or familial nephropathy. His additional co-morbid conditions include obesity, asthma and now new diagnosis of atrial fibrillation. Obesity alone increases CKD risk due to glomerular hyper filtration and metabolic stress. His new cardiac diagnosis places him at risk for additional cardio-renal impact. Outpatient nephrology evaluation is medically necessary to determine etiology of his renal dysfunction (hypertensive nephrosclerosis vs familial nephropathy vs early diabetic nephropathy vs other), evaluate staging and long-term risks, provide further optimization of his blood pressure and renal protective therapies and establish ongoing specialty follow-up. # Asthma without acute exacerbation - continue home bronchodilators VTE PPx SCDs, Eliquis 10/08/25 1115 Follow-up on patient / labs EKG #4, 10/08/2025 1056: Sinus rhythm Echo w/ hyperdynamic LVEF 70%. LVH. No RWMA. Grade I/IV diastolic dysfunction. Trace TR, PASP 27 mmHg. BMP 10/08/25 Na 135 K 3.7 Mg 1.9 Cl 99 Ca 9.1 Glu 220 CO2 26 AG 13.7 BUN 21 Cr 1.7 eGFR 53 NT-proBNP 292 A1c 5.9 (pre-diabetic range) 10/08/25 1144 Discussing case w/ cardiology FIELD SUPPORT TECHNICIAN Kandace Cardiology has not been formally consulted, however the case was reviewed with Kandace Vyas, cardiology FIELD SUPPORT TECHNICIAN. We specifically discussed the patient's new onset atrial fibrillation and his subsequent conversion to normal sinus rhythm, as well as his underlying hypertension and current cardiac medication regimen. Cardiology in agreement of continue his metoprolol succinate at home dose. I have discussed my concerns about patient's antihypertensive regimen and need to make adjustments, as well as discharging the patient with multiple changes to his regimen without timely postdischarge follow-up as patient currently is not established with cardiology. In discussion with cardiology, will discontinue amlodipine and hydrochlorothiazide at this time. Will pursue gradual taper of clonidine given concern for potential rebound hypertension. Losartan will be decreased to 25 mg daily. Cardiology was able to arrange a new patient appointment with Dr. Osorio on Saturday at 10 AM. PLAN - monitor patient until evening, stable, ok to discharge, conditional discharge order placed - med adjustment for discharge apixaban 5 mg BID (new med) metoprolol succinate 50 mg daily (continue home dose) start tapering clonidine over next 10 days Day 1-3: clonidine 0.1 mg TID (0.3 mg/day) Day 4-6: clonidine 0.1 mg BID (0.2 mg/day) Day 7-10: clonidine 0.1 mg daily Day 11: STOP - discontinue amlodipine and HCTZ at discharge - decrease dose of losartan to 25 mg daily (start after clonidine taper completed) PDMP PDMP Reviewed: Not Reviewed Attestations Medical Necessity Statement*: Patient admitted under observation status. Patient will require less than two midnights to manage new onset atrial fibrillation. Coding Level of Care Code 44649 Diagnoses New onset atrial fibrillation I48.91 Other specified hypotension I95.89 Hypotension type: other hypotension type Primary hypertension I10 Stage 3a chronic kidney disease N18.31 Chronic kidney disease stage 3 subtype: stage 3a (GFR 45-59) Hyperglycemia R73.9
--- NOTE | 2025-10-08 10:56 | ECG_ITS ---
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 Measurements Intervals [place] Rate: 74 P: 65 WA: 157 QRS: 11 QRSD: 101 T: 57 QT: 383 QTc: 427 Interpretive Statements SINUS RHYTHM NONSPECIFIC ST & T-WAVE ABNORMALITY Compared to ECG 10/07/2025 13:38:38 Atrial fibrillation no longer present Ventricular premature complex(es) no longer present Aberrant conduction of supraventricular beat(s) no longer present T-wave abnormality still present Electronically Signed On 10-08-2025 18:49:08 ASH CONVEYOR OPERATOR by Bharati Lambert M.D. [email or web address]
[2025-10-08 11:06] LABS: Estmated Average Glucose 123; Hemoglobin A1C 5.9 % (4.0-6.0)
[2025-10-08 11:18] LABS: Anion Gap 13.7 (5-19); Blood Urea Nitrogen 21 mg/dL (6-20); Calcium 9.1 mg/dL (8.5-10.5); Carbon Dioxide 26 mmol/L (22-29); Chloride 99 mmol/L (98-107); Glucose 220 mg/dL (65-115); Magnesium 1.9 mg/dL (1.7-2.3); NT Pro B Type Natriuretic Pept 292 pg/mL (0-125); Osmolality Calculated 290 mOsm/kg (285-295); Potassium 3.7 mmol/L (3.5-5.1); Sodium 135 mmol/L (136-145)
[2025-10-08] MEDS: metoprolol succinate ER (24 HR) 50 mg Tablet PO (11:26)
--- NOTE | 2025-10-08 14:26 | PC.NURSE ---
Conversation with hospitalist. Talked to Ms Nadine NP via voalte messenger. Per hospitalist, pt need to start tapering his clonidine starting now before discharging him this evening around 7 pm. to make sure BP is not getting too low. Informed her that medication was ordered to start at 9 pm. Notified Pharmacist since hospitalist wants the first dose now.
--- NOTE | 2025-10-08 14:48 | PC.NURSE ---
Informed pt that there is an order for a clonidine to give now and if he takes what dose at home. Pt looked it up on [facility] patient portal and showed to this nurse, per pt portal, his pcp prescribed him to take 0.2 mg of clonidine three times a day for blood pressure. Patient stated, to be honest with you, I only take clonidine once a day at home. Also, pt requested and albuterol nebule at discharge for home use since he has a nebulization machine and connector at home. Informed Ms Mccoy about this talk.
--- NOTE | 2025-10-08 18:43 | P.DS_ITS ---
Discharge Providers Date of Admission: 10/07/25 10:05 Date of Discharge: October 08, 2025 Attending Provider at Admission: Shelly Solis MD Attending Provider at Discharge: Isaac Levi NP Primary Care Provider: Dede Fuller MD Diagnoses at Discharge Discharge Diagnosis 1. New onset atrial fibrillation: 2. Other specified hypotension: 3. Primary hypertension: 4. Stage 3a chronic kidney disease: 5. Prediabetes: Reason for Visit Reason for Visit: new onset afib with rvr Brief History: The patient presented to the ED on 10/07/25 with concern of palpitations and exertional dyspnea. He reported experiencing intermittent palpitations earlier in the day, accompanied by shortness of breath and profound fatigue. Upon awakening that morning, he noted he could not breathe at all and felt completely drained of energy. 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 While performing job-related duties, he developed additional symptoms of hot flashes, blurry vision and dizziness. He denied fever, chills, syncope, chest pain, orthopnea, lower extremity edema, nausea, vomiting and diarrhea. Recently diagnosed with asthma and prescribed bronchodilators. He denies history of known arrhythmia. Notes loud snoring and has not been previously evaluated for obstructive sleep apnea. On arrival to the ED, patient was found to be in atrial fibrillation with rapid ventricular response. He received diltiazem (bolus + infusion). Converted to normal sinus rhythm at approximately 7 PM on 10/07/25. Hospital Course Hospital Course 10/08/2025, on hospital day 1, patient reported feeling significantly improved compared to admission. Denies palpitations, chest pain, dizziness and dyspnea. Notes breathing to have improved. Patient remained in sinus rhythm overnight. At some point he was taken off the diltiazem drip. Started on Eliquis 5 mg BID. Echo was done. Echocardiogram 10/07/2025 * Normal left ventricular size and systolic function, EF 71%. * Mild left ventricular hypertrophy. * No regional wall motion abnormalities. * Grade I/IV diastolic dysfunction (abnormal relaxation filling pattern), normal to mildly elevated filling pressures. * Normal cardiac chamber sizes. * Trace tricuspid valve regurgitation. Estimated pulmonary artery peak systolic pressure 27 mm of Hg. * There is no pericardial effusion. * There are no intracardiac masses. Compared to the study from 12/12/2019, the LV ejection fraction has improved from 50% to 70% He was checked for diabetes, A1c 5.9 (pre-diabetic range). Hypotensive while inpatient. His BP regimen was adjusted. - metoprolol succinate 50 mg daily (continue home dose) - discontinue amlodipine and HCTZ at discharge - taper off clonidine over 8 days - decrease dose of losartan to 25 mg daily (start after clonidine taper completed) Physical Exam Narrative: Constitutional: NAD. Obese habitus. Neuro: Awake and alert. Oriented x3. No facial asymmetry, unilateral weakness or speech deficits. Head: NC/AT Eyes: PERRLA, EOMI Ears: Normal external ears. Hearing intact to normal voice. Nose: Normal external nose. No epistaxis. Throat: MMM Respiratory: Diminished. No accessory muscle use. On room air. Cardiovascular: Regular. No murmur. Extremities: No edema bilaterally Gastrointestinal: Soft. NT. ND. +BS Genitourinary: No crowder catheter Musculoskeletal: Moves all extremities. Skin: No obvious bruising or open lesions. Discharge Data Studies Completed and Pending Completed Studies During Hospitalization Category Date Time Status XR chest 1V portable [id number] Stat Exams 10/07/25 09:32 Completed CV. echo complete* [id number] Routine Ultrasound 10/07/25 12:56 Completed Radiology Impressions Chest X-Ray 10/07/25 09:32 IMPRESSION: 1. No acute cardiopulmonary finding. Laboratory Results WBC 6.77 10^3/uL (3.29-11.43) 10/07/25 08:31 RBC 5.37 10^6/uL (3.85-5.65) 10/07/25 08:31 Hgb 14.90 g/dL (11.27-16.99) 10/07/25 08:31 Hct 45.5 % (37-53) 10/07/25 08:31 MCV 84.7 fl (82-101) 10/07/25 08:31 MCH 27.7 pg (27-33) 10/07/25 08:31 MCHC 32.7 g/dL (30-55) 10/07/25 08:31 RDW 13.9 % (12.1-15.1) 10/07/25 08:31 Plt Count 212 10^3/cmm (157-399) 10/07/25 08:31 MPV 9.2 fL (7.4-10.4) 10/07/25 08:31 Neut % (Auto) 52.3 % 10/07/25 08:31 Lymph % (Auto) 36.0 % 10/07/25 08:31 Ellis % (Auto) 8.0 % 10/07/25 08:31 Eos % (Auto) 2.5 % 10/07/25 08:31 Baso % (Auto) 0.9 % 10/07/25 08:31 Neut # (Auto) 3.54 10^3/uL (1.8-7.7) 10/07/25 08:31 Lymph # (Auto) 2.4 10^3/uL (0.8-4.8) 10/07/25 08:31 Ellis # (Auto) 0.5 10^3/uL (0.2-0.9) 10/07/25 08:31 Eos # (Auto) 0.2 10^3/uL (0.0-0.8) 10/07/25 08:31 Baso # (Auto) 0.1 10^3/uL (0.0-0.1) 10/07/25 08:31 Nucleated RBC % (auto) 0 % 10/07/25 08:31 Nucleated RBCs # 0.0 /100WBC 10/07/25 08:31 Sodium 135 mmol/L (136-145) L 10/08/25 10:41 Potassium 3.7 mmol/L (3.5-5.1) 10/08/25 10:41 Chloride 99 mmol/L (98-107) 10/08/25 10:41 Carbon Dioxide 26 mmol/L (22-29) 10/08/25 10:41 Anion Gap 13.7 (5-19) 10/08/25 10:41 BUN 21 mg/dL (6-20) H 10/08/25 10:41 Creatinine 1.7 mg/dL (0.7-1.2) H 10/08/25 10:41 GFR Calculation 53.0 mL/min (90-130) L 10/08/25 10:41 Glucose 220 mg/dL (65-115) H 10/08/25 10:41 Estimat Average Glucose 123 10/08/25 10:41 Hemoglobin A1c 5.9 % (4.0-6.0) 10/08/25 10:41 Calculated Osmolality 290 mOsm/kg (285-295) 10/08/25 10:41 Calcium 9.1 mg/dL (8.5-10.5) 10/08/25 10:41 Magnesium 1.9 mg/dL (1.7-2.3) 10/08/25 10:41 Total Bilirubin 0.4 mg/dL (0.15-1.2) 10/07/25 08:31 AST 19 U/L (0-40) 10/07/25 08:31 ALT 14 U/L (0-41) 10/07/25 08:31 Alkaline Phosphatase 85 U/L (40-130) 10/07/25 08:31 Troponin T Baseline 20 ng/L (0-15) H 10/07/25 08:31 Troponin T 120 Minute 19.44 ng/L (0-15) H 10/07/25 10:18 Delta Troponin T -0.56 ABS# (0-10) L 10/07/25 10:18 Troponin T Hi Sens 6Hr 18.88 ng/L (0-15) H 10/07/25 14:15 Troponin T Hi Sens 6Hr Delta -1.12 ng/L (0-12) L 10/07/25 14:15 NT-Pro-B Natriuret Pep 292 pg/mL (0-125) H 10/08/25 10:41 Total Protein 6.5 g/dL (6.6-8.7) L 10/07/25 08:31 Albumin 4.1 g/dL (3.5-5.2) 10/07/25 08:31 Globulin 2.4 g/dL (1.3-4.6) 10/07/25 08:31 TSH 1.01 uIU/mL (0.27-4.20) 10/07/25 08:31 Imaging CXR: Radiologist's impression: Exam: XR chest 1V portable [id number] Date/Time of Exam: 10/07/2025 9:33 AM Reason For Exam: New onset A-fib Comparison 05/21/2025. Lungs are fully inflated and clear. Normal cardiomediastinal silhouette for technique. No pleural effusion. Bony structures are intact. IMPRESSION: No acute cardiopulmonary finding. Echo: Radiologist's impression: Echocardiogram 10/07/2025 * Normal left ventricular size and systolic function, EF 71%. * Mild left ventricular hypertrophy. * No regional wall motion abnormalities. * Grade I/IV diastolic dysfunction (abnormal relaxation filling pattern), normal to mildly elevated filling pressures. * Normal cardiac chamber sizes. * Trace tricuspid valve regurgitation. Estimated pulmonary artery peak systolic pressure 27 mm of Hg. * There is no pericardial effusion. * There are no intracardiac masses. Compared to the study from 12/12/2019, the LV ejection fraction has improved from 50% to 70% Additional Data from Hospital Stay EKG #1, 10/07/2025 0753: AFIB w/ rapid ventricular rate (v-rate 133) EKG #2, 10/07/2025 0844: AFIB w/ controlled ventricular rate (v-rate 69) EKG #3, 10/07/2025 1338: AFIB w/ controlled ventricular rate (v-rate 87) EKG #4, 10/08/2025 1056: Sinus rhythm (v-rate 74). QTc 427. Vitals Last Vital Signs Temp 97.7 F 10/08/25 16:00 Pulse 85 10/08/25 16:00 Resp 17 10/08/25 16:00 BP 133/91 10/08/25 16:00 Pulse Ox 97 10/08/25 16:00 O2 Del Method Room Air 10/08/25 15:30 Discharge Plan Discharge Patient Disposition: Home Condition: Stable Prescriptions: New Eliquis 5 mg Tablet 5 mg PO BID@0900,2100 Qty: 60 0RF Continued acetaminophen 650 mg tablet extended release 650 mg PO Q8H PRN (Reason: pain) Qty: 90 0RF (DME) Space Chamber Spacer See Rx Instructions .Route Qty: 1 0RF Rx Instructions: As directed metoprolol succinate 50 mg tablet extended release 24 hr 50 mg PO DAILY Qty: 90 3RF aspirin 81 mg tablet,delayed release (DR/EC) 81 mg PO DAILY Qty: 90 3RF albuterol sulfate [Ventolin HFA] 90 mcg/actuation HFA aerosol inhaler 2 puff inhalation QID Qty: 8.5 1RF hydrocodone-acetaminophen 7.5-325 mg tablet 1 tab PO Q12H PRN (Reason: pain) 30 Days Qty: 60 0RF Rx Instructions: refill on or after 30 days budesonide-formoterol [Symbicort] 160-4.5 mcg/actuation HFA aerosol inhaler 2 puff inhalation BID Qty: 10.2 5RF Discontinued losartan 100 mg tablet 100 mg PO DAILY Qty: 90 3RF amlodipine 10 mg tablet 10 mg PO DAILY Qty: 90 1RF tadalafil [Cialis] 5 mg tablet 5 mg PO DAILY Qty: 30 5RF tizanidine 4 mg tablet 4 mg PO BID PRN (Reason: muscle spasticity) Qty: 180 0RF clonidine HCl 0.1 mg tablet 0.2 mg PO TID hydrochlorothiazide 25 mg tablet 25 mg PO QAM Discharge Order = DC NOW: Discharge Order (Routine); Ordered 10/08/25 Ordered By: Isaac Levi Referrals: Bharati Lambert MD [Physician, Cardiology] - 10/11/25 10:00 am Dede Fuller MD [Primary Care Provider, Family Practice] - 10/26/25 9:30 am Referral Note: Primary care provider will set up nephrology appt, please take discharge papers to the appt with you. Discharge Diet: Cardiac Discharge Activity: Resume usual activity Patient Instructions: Atrial Fibrillation, Apixaban (By mouth), Chronic Kidney Disease (DC), Chronic Hypertension (DC), Anticoagulation Therapy, Opioid Safety, Patient Portal & Brynn Instructions Activity Restrictions/Additional Instructions: * Please discuss with patient adjustments to his meds during this hospitalization Eliquis 5 mg twice daily (new medication) Metoprolol succinate 50 mg daily (continue this medication at his prior home dose) hold dose for SBP </ 100 and/or HR </ 60 Clonidine 0.2 mg thrice daily Patient has not been taking as prescribed, takes clonidine 0.2 mg daily (TAPER OFF this medication over next 8 days) tart tapering clonidine over next 8 days Day 1-4: clonidine 0.1 mg QD Day 5-8: clonidine 0.05 mg QD Day 9: STOP Educate on symptoms of clonidine withdrawal: severe headache, agitation, tremors, rapid rise in blood pressure Losartan 25 mg daily (DOSE DECREASE from 100 mg daily) start medication after clonidine has been tapered off STOP amlodipine and hydrochlorothiazide * Check BP twice daily, keep log, bring log to cardiology appointment * Referrals Follow-up with cardiology on Saturday10/11/25 at 10 am for new patient appointment Follow-up with nephrology referral * Strict return precautions Seek immediate medical attention (ED or call 911) for any of the following: Cardiac symptoms New recurrent palpitations, rapid heart rate, or irregular heartbeat Chest pain, chest pressure, or discomfort radiating to arm, jaw, or back Shortness of breath, especially if sudden or worsening Dizziness, fainting, near syncope, or new confusion Blood pressure concerns Severe headache, vision changes, or symptoms suggesting hypertensive urgency/emergency Home blood pressure consistently > 180 systolic or > 110 diastolic OR persistently low blood pressure (< 90 systolic) with symptoms Medication related issues Symptoms of clonidine withdrawal: Severe headache, agitation, tremors, rapid rise in BP Intolerance or adverse effects from new or adjusted antihypertensive medications Discharge Attestations Time Spent in Discharge Care*: less than 30 min Status at Discharge: Cognitive status at discharge: cognitively intact , Behavioral status at discharge: cooperative , Quality Metrics Clinical Quality Measures [ No reported AMI, CVA or VTE this stay] Coding Level of Care Code 96685 Diagnoses New onset atrial fibrillation I48.91 Other specified hypotension I95.89 Primary hypertension I10 Stage 3a chronic kidney disease N18.31 Prediabetes R73.03 Time Spent (min) 25
--- NOTE | 2025-10-08 20:13 | PC.NURSE ---
disacharge to home discuss his follow up appointments and medication changes/ Eliquis coupon provided to pt. 5 mg of Eliquis for this evening is administered to patient prior to discharge.
== END 2025-10-08 19:00 | disposition home or self-care (01) ==
LOC: ER 10:01 → ER IP 10:12 → CSU 14:08 → ER IP 10-08 12:37
PROVIDERS: Admitting Provider Internal Medicine; Emergency Provider Family Medicine; PCP Family Medicine; Visit Provider Nurse Practitioner Gerontology
DX: I48.91 Unspecified atrial fibrillation (principal); I95.89 Other hypotension; R73.03 Prediabetes; I12.9 Hypertensive chronic kidney disease with stage 1 through stage 4 chronic kidney disease, or unspecified chronic kidney disease; N18.31 Chronic kidney disease, stage 3a; Z79.82 Long term (current) use of aspirin; Z79.891 Long term (current) use of opiate analgesic; E66.9 Obesity, unspecified; Z68.35 Body mass index [BMI] 35.0-35.9, adult; E78.2 Mixed hyperlipidemia; F15.11 Other stimulant abuse, in remission; J45.909 Unspecified asthma, uncomplicated; Z82.49 Family history of ischemic heart disease and other diseases of the circulatory system
CPT/HCPCS: 36415; 71045; 80048; 80053; 83036; 83735; 83880; 84443; 84484; 85025; 93005; 93306; 94640; 94664; 96372; 96374; 99285; G0378; J1650; J3490; J7611; J7613; J7626; J9999

== ENCOUNTER → 2025-10-11 09:49 | Outpatient (BNVA) | payer OTHER, SELFPAY | PROVIDERS: PCP Family Medicine; Referring Provider Nurse Practitioner Gerontology; Visit Provider Internal Medicine | DX: R07.9 Chest pain, unspecified (principal) | CPT/HCPCS: 93005 ==